=== PATIENT | female | born 1950 | race Caucasian/White ===

== ENCOUNTER 2017-12-31 09:53 | Inpatient (IN) | payer OTHER, MEDICARE ==
[~2017-12-31] VITALS: Ht 157.5 cm; Wt 95.3 kg
[~2017-12-31 09:53] MED LIST: AMLODIPINE BES2.5 M1 PO; CALCITRIOL0.25 MC1 PO; DIPHENHYDRAMINE25 M4 PO; ESCITALOPRAM OXA5 MG PO; LISINOPRIL20 M1 PO; OMEPRAZOLE40 M1 PO; OXYCODONE-ACET1 EACH PO; REGLAN10 M1 PO
--- NOTE | 2017-12-31 10:23 | ED AMS/SEIZURE/WEAK/DIZZY ---
History of Present Illness General Chief Complaint: Dizziness Stated Complaint: DIZZINESS VOMTING Source: patient Exam Limitations: poor historian Vital Signs & Intake/Output Vital Signs & Intake/Output Vital Signs Date Time Temp Pulse Resp B/P B/P Pulse O2 O2 Flow FiO2 Mean Ox Delivery Rate 01/01 0616 97.6 73 18 140/70 92 Room Air 12/31 2217 98.8 72 16 170/78 94 Room Air 12/31 1939 160/80 06 1812 98.3 74 18 178/80 94 Room Air 12/31 1652 97.1 78 20 139/64 95 Room Air 12/31 1446 75 20 152/69 98 Room Air 12/31 1421 98.6 76 20 198/87 97 Room Air 12/31 1420 98.6 76 20 198/87 12/31 1357 76 20 199/97 96 Room Air 12/31 1304 98.6 72 20 210/96 96 Room Air 12/31 1302 72 20 210/96 12/31 1302 72 20 210/96 12/31 1302 72 20 210/96 12/31 1154 70 20 191/80 94 Room Air 12/31 1106 98.2 77 20 195/81 12/31 1103 77 20 195/81 95 Room Air 12/31 1032 98.2 83 17 185/91 93 Room Air 12/31 1030 98.2 83 17 185/91 12/31 1002 98.6 93 18 197/110 98 Room Air ED Intake and Output 01/01 0000 12/31 1200 Intake Total Output Total 250 50 Balance -250 -50 Output, Urine 250 50 Patient 214 lb 230 lb Weight Weight Bed scale Estimated Measurement Method Allergies Coded Allergies: Penicillins (Intermediate, HIVES 01/04/16) Reconcile Medications Furosemide 80 MG TABLET 1 TAB PO DAILY WATER RETENTION (Reported) Hydralazine HCl 25 MG TABLET 1 TAB PO BID HEART (Reported) Labetalol HCl 100 MG TABLET 1 TAB PO BID HEART (Reported) Lisinopril 20 MG TABLET 1 TAB PO QPM BP (Reported) Omeprazole 40 MG CAPSULE.DR 1 CAP PO DAILY GI (Reported) Sevelamer Carbonate (Renvela) 800 MG TABLET 1 TAB PO TID UNKNOWN (Reported) Simvastatin (Simvastatin*) 20 MG TABLET 1 TAB PO QPM CHOLESTEROL (Reported) Triage Note: 67 YO FEMALE TO TRIAGE FOR EVAL OF KENDRICK, DIZZINESS AND VOMTINIG SINCE THIS AM. DENIES CHEST PAIN. EKG COMPELTED ON ARRIVAL, PT TO ER ROOM 9. Triage Nurses Notes Reviewed? yes HPI: Patient presents for evaluation of dizziness headache and tremors that began subacutely last night. The Headache is located bilaterally in the frontal region of the head wrapping around to the occipital region. Patient denies any associated fever or cold symptoms. Past History Travel History Traveled to [place] past 21 day No Medical History Any Pertinent Medical History? 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 No Review of Systems Review of Systems Constitutional: Reports: no symptoms. EENTM: Reports: see HPI. Respiratory: Reports: no symptoms. Cardiovascular: Reports: no symptoms. GI: Reports: no symptoms. Genitourinary: Reports: no symptoms. Musculoskeletal: Reports: no symptoms. Skin: Reports: no symptoms. Neurological/Psychological: Reports: headache, tremors. Hematologic/Endocrine: Reports: no symptoms. Immunologic/Allergic: Reports: no symptoms. All Other Systems: Reviewed and Negative Physical Exam Physical Exam General Appearance: SEE BELOW Comments: Exam somewhat limited secondary to inconsistent cooperation. Gen.: Well-nourished, well-developed, no acute respiratory distress. Response is slow but otherwise appropriate. Head: Normocephalic, atraumatic. Eyes: Normal inspection bilaterally, rotational nystagmus present (patient is unable to comply with extraocular movement testing) pulse round and reactive Ears: Normal inspection bilaterally Nose: Normal inspection Throat/mouth : Moist mucosa Neck: Supple, full range of motion, no goiter Heart: Regular rate and rhythm, no murmurs rubs or gallops Lungs: Clear to auscultation bilaterally with normal air entry Chest: Nontender Back: Normal range of motion Abdomen: Soft, nontender, nondistended, normal bowel sounds Extremities: Normal range of motion grossly, equal radial pulses, no cyanosis clubbing or edema Neurologic: Cranial nerves grossly intact, speech is clear Skin: warm and dry Psychiatric: Calm, inconsistently cooperative, distant stare, no apparent delusions or hallucinations Core Measures ACS in differential dx? No CVA/TIA Diagnosis No Sepsis Present: No Sepsis Focused Exam Completed? No Progress Differential Diagnosis: CVA/stroke, dehydration, encephalitis, electrolyte imbalance, hypoglycemia, hypoxia, intracranial Hem., intracranial mass/tumor, seizure disorder, subarachnoid Hem. Plan of Care: Orders Procedure Date/time Status ECHOCARDIOGRAM 01/01 0741 Active Change service to 01/01 0711 Active TROPONIN LEVEL 01/01 0300 Complete EKG 01/01 0300 Active PT Evaluate & Treat 01/01 UNK Active Nursing Misc 01/01 UNK Active MRI-HEAD W/O SUE 01/01 UNK Active Renal Dialysis Diet 12/31 D Active TROPONIN LEVEL 12/31 2100 Complete EKG 12/31 2100 Active CULTURE,BODY FLUID 12/31 1902 Active BODY FLUID CELL COUNT 12/31 1902 Complete Weight 12/31 1836 Active Vital Signs 12/31 1836 Complete Teach/Educate 12/31 1836 Active Pain Treatment and Response 12/31 1836 Active Nutritional Intake, Monitor 12/31 1836 Active Isolation 12/31 1836 Active Intake & Output 12/31 1836 Complete Patient Care Conference 12/31 1836 Active Activity/Ambulation 12/31 1836 Active Pathway - chart 12/31 1619 Active House Staff 12/31 1619 Active Patient Data 12/31 1619 Active Code Status 12/31 1619 Active Patient Data 12/31 1617 Active Misc Message 12/31 1541 Active ED Holding Orders 12/31 1541 Active Admit to inpatient 12/31 1541 Active Vital Signs 12/31 1541 Active Code Status 12/31 1541 Complete Add-on Test (ER Only) 12/31 1234 Active EKG 12/31 1234 Active URINALYSIS 12/31 1129 Complete Lucas, Insertion/Removal/Asses 12/31 1111 Active CULTURE,URINE 12/31 1111 Active TROPONIN LEVEL 12/31 1030 Complete PROTHROMBIN TIME 12/31 1021 Complete LIPASE 12/31 1021 Complete COMPREHENSIVE METABOLIC PANEL 12/31 1021 Complete CBC WITHOUT DIFFERENTIAL 12/31 1021 Complete EKG 12/31 0954 Active VTE Mechanical Prophylaxis 12/31 UNK Active Vital Signs 12/31 UNK Complete Telemetry/Health Care Aide 12/31 UNK Active Peritoneal Dialysis 12/31 UNK Complete Peritoneal Dialysis 12/31 UNK Active Nursing Misc 12/31 UNK Active NIH Stroke Scale 12/31 UNK Active Intake & Output 12/31 UNK Active Current Medications Sig/Rich Start time Last Medication Dose Stop Time Status Admin Atorvastatin Calcium 10 MG 1700 01/01 1700 AC (Lipitor) Aspirin 81 MG DAILY 01/01 0900 AC (Aspirin) Furosemide 80 MG DAILY 01/01 0900 AC (Lasix) Hydralazine HCl 25 MG BID 01/01 0900 AC (Apresoline) Labetalol HCl 100 MG BID 01/01 0900 AC (Trandate) Lisinopril 20 MG BID 01/01 0900 AC (Prinivil) Calcium Acetate 667 MG WITH MEALS 01/01 0800 AC (PhosLo) Heparin Sodium 5,000 UNIT Q8 12/31 2200 AC 01/01 (Porcine) 0634 Omeprazole 40 MG DAILY AC PRN 12/31 2100 AC (Prilosec) Sevelamer Carbonate 800 MG WM 12/31 2100 AC (Renvela) Laboratory Tests 01/01/18 0325: Troponin I 0.05 12/31/17 2135: Troponin I 0.05 12/31/178: Lymphocytes 31, % Normal PMNs 4, [facility] Test , Fluid WBC 10 H, Fld Total RBCs Counted 7 H 12/31/17 1130: Urine Color YEL, Urine Clarity HAZY H, Urine pH 7.5, Ur Specific [place] 1.020, Urine Protein 100 H, Urine Ketones NEG, Urine Nitrite NEG, Urine Bilirubin NEG, Urine Urobilinogen 0.2, Ur Leukocyte Esterase TRACE H, Ur Microscopic SEDIMENT EXAMINED, Urine RBC 3-5, Urine WBC 15-25 H, Ur Epithelial Cells FEW, Urine Hemoglobin MOD H, Urine Glucose 100 H 12/31/17 1030: Anion Gap 17 H, Estimated GFR 4 L, BUN/Creatinine Ratio 6.8 L, Glucose 122 H , Calcium 9.0, Total Bilirubin 0.7, AST 16, ALT 22, Alkaline Phosphatase 92, Troponin I 0.04, Total Protein 5.5 L, Albumin 3.2 L, Globulin 2.3, Albumin/ Globulin Ratio 1.4, Lipase 61, PT 10.8, INR 0.99, CBC w Diff NO MAN DIFF REQ, RBC 3.95 L, MCV 90.8, MCH 30.0, MCHC 33.0, RDW 13.7, MPV 9.5, Gran % 75.6 H, Lymphocytes % 18.3 L, Monocytes % 4.5, Eosinophils % 1.3, Basophils % 0.3, Absolute Granulocytes 5.6, Absolute Lymphocytes 1.4, Absolute Monocytes 0.3, Absolute Eosinophils 0.1, Absolute Basophils 0 Microbiology 12/31 1901 BODY FLUID: Body Fluid Culture - COLB 12/31 1901 BODY FLUID: Gram Stain - COLB 12/31 1129 URINE ROUT: Urine Culture - RECD Diagnostic Imaging: Discussed w/RAD: CT Scan. Radiology Impression: PATIENT: ALE MCDERMOTT PRESENT AGE: 67 PATIENT ACCOUNT NO: [id number] : 50 LOCATION: [facility] ORDERING PHYSICIAN: Josh Kelly MD SERVICE DATE: 12/31/17 EXAM TYPE: CAT - CT HEAD WO IV CONTRAST CT HEAD WITHOUT IV CONTRAST INDICATION: Dizziness and vomiting. COMPARISON: Head CT 01/04/2016. TECHNIQUE: Multidetector CT acquisitions of the head was obtained without IV contrast. FINDINGS: Chronic encephalomalacia within the occipital lobes bilaterally and the right frontal lobe at sites of previously seen intraparenchymal hemorrhage. There are new small indeterminate age areas of hypoattenuation within the right and left parietal lobes at the high convexity that are nonspecific and for which a MRI of the brain with and without contrast would be helpful in further assessment. Differential considerations include evolving infarcts or PRES. There is no intracranial hemorrhage, hydrocephalus, extra-axial surface collection, midline shift, or other herniation pattern. The basilar cisterns are preserved. No significant soft tissue abnormality. No acute osseous abnormality. Small mastoid effusions bilaterally. IMPRESSION: - There are new small indeterminate age areas of hypoattenuation within the right and left parietal lobes at the high convexity that are nonspecific and for which a MRI of the brain with and without contrast would be helpful in further assessment. Differential considerations include but are not limited to PRES or evolving infarcts There is no associated mass effect. - Chronic encephalomalacia within the occipital lobes bilaterally and the right frontal lobe at sites of previously seen intraparenchymal hemorrhage. No acute hemorrhage. DICTATED BY: Josh Thacker MD DATE/TIME DICTATED:12/31/171138 NURSERY HELPER:KELLI DATE/TIME TRANSCRIBED:1138 CONFIDENTIAL, DO NOT COPY WITHOUT APPROPRIATE AUTHORIZATION. < Electronically signed in Other Vendor System> SIGNED BY: Josh Thacker MD 12/31/17 1141, PATIENT: ALE MCDERMOTT PRESENT AGE: 67 PATIENT ACCOUNT NO: [id number] : 50 LOCATION: [facility] ORDERING PHYSICIAN: Josh Kelly MD SERVICE DATE: 12/31/17 EXAM TYPE: CAT - CT ABD & PELVIS W/O IV CONTRAS CT ABDOMEN AND PELVIS WITHOUT CONTRAST CLINICAL INFORMATION: Bilious vomiting. COMPARISON: Abdominal CT biopsy 01/21/2013. TECHNIQUE: Multidetector volumetric imaging was performed from the superior aspect of the liver through the pubic symphysis. Sagittal and coronal reformatted images were obtained on the technologist's workstation. FINDINGS: Small right greater than left pleural effusions. Limited evaluation of the unenhanced liver, spleen, adrenal glands, and pancreas reveals no definite abnormality. The gallbladder is surgically absent. There is significant renal atrophy bilaterally. There is a 0.8 cm calculus within the midpole of the left kidney. There are a few probable atherosclerotic calcifications within the right renal hilum. There is no hydronephrosis. Scattered colonic diverticulosis. The large and small bowel are normal in caliber without evidence of mechanical obstruction. No focal inflammatory changes adjacent to the large or the small bowel. The appendix is normal. There is small volume free air within the anterior aspect of the upper abdomen, presumably related to peritoneal dialysis. There is extensive aortoiliac atherosclerotic calcification. Moderate volume intra-abdominal/intrapelvic ascites. Dialysis catheter terminates within the pelvis posteriorly. There is a Lucas catheter in place and the bladder is not well visualized secondary to adjacent ascites. The pelvic viscera are normal. No pelvic adenopathy. There are no acute osseous abnormalities. Chronic flattening of the left femoral head. There is grade 1 degenerative anterolisthesis of L4 on L5. No significant soft tissue abnormality. IMPRESSION: - Moderate volume intra- abdominal/intrapelvic ascites. Dialysis catheter terminates within the pelvis posteriorly. - There is small volume free air within the anterior aspect of the upper abdomen, presumably related to peritoneal dialysis which limits assessment for true pathologic free air. - There is significant renal atrophy bilaterally. There is a 0.8 cm calculus within the midpole of the left kidney. No hydronephrosis. - There is extensive aortoiliac atherosclerotic calcification. - Scattered colonic diverticulosis. - Gallbladder not visualized and likely surgically absent. Common bile duct is not enlarged. - Small right greater than left pleural effusions. DICTATED BY: Josh Thacker MD DATE/TIME DICTATED:12/31 NURSERY HELPER:KELLI DATE/TIME TRANSCRIBED:12/31/171199 CONFIDENTIAL, DO NOT COPY WITHOUT APPROPRIATE AUTHORIZATION. <Electronically signed in Other Vendor System> SIGNED BY: Josh Thacker MD 12/31/17 1212 Initial ED EKG: NSR, nonspecific ST T wave chg Comments: 12/31/2017 11:40:22 AM I have updated Ale on test results to this point. She is accompanied by her nephew and his girlfriend. Ale looks much better at this time. Tremors have resolved as well as the patient's rotational nystagmus. She is answering questions much more briskly and offers no complaint. Awaiting CAT scan report. Departure Departure Disposition: STILL A PATIENT Condition: Stable Clinical Impression Primary Impression: Hypertensive encephalopathy Referrals: Amy SHARP,Rachna Pavon Departure Forms: Customer Survey General Discharge Information Observation Note Spoke With: Karen Ricks MD [facility] Patient In: Non-ED OBS Care Area Rationale for Observation: My rational for observation is as follows patient presented with an extremely high blood pressure along with altered mental status consistent with hypertensive encephalopathy. She has required substantial amounts of antihypertensive medications both parenterally and orally. Although the patient has improved with treatment her blood pressure is still high. Given the altered mental status with her high blood pressure I do not feel she is a good candidate for outpatient management. If her blood pressure increases again she would not be capable of outpatient follow-up. I feel she now requires hospitalization for close monitoring of her blood pressure and for modification of her current blood pressure regimen. Cardiology consultation should be considered. If patient's mentation altars again neurology consultation should also be considered. She is currently taking 3 antihypertensive medicines so I feel her medication adjustments and stabilization of her blood pressure control on oral medications will be prolonged and somewhat complicated. Critical Care Note Critical Care Note Critical Care Time: 30-74 min
[2017-12-31 11:00] LABS: ABSOLUTE BASOPHIL COUNT 0 /CUMM (0.0-0.2); ABSOLUTE EOSINOPHIL COUNT 0.1 /CUMM (0.0-0.7); ABSOLUTE GRANULOCYTE CT 5.6 /CUMM (1.4-6.5); ABSOLUTE LYMPH COUNT 1.4 /CUMM (1.2-3.4); ABSOLUTE MONOCYTE COUNT 0.3 /CUMM (0.10-0.60); BASOPHIL % 0.3 % (0.0-2.0); EOSINOPHIL % 1.3 % (0-5); GRANULOCYTE % 75.6 % (42.2-75.2); HEMATOCRIT 35.8 % (37-47); MEAN CORPUSCULAR VOLUME 90.8 FL (81.0-99.0); MEAN PLATELET VOLUME 9.5 FL (7.4-10.4); PLATELET COUNT 213 /CUMM (130-400); RBC DISTRIBUTION WIDTH 13.7 % (11.5-14.5); RED BLOOD CELL CT 3.95 /CUMM (4.20-5.40); WHITE BLOOD CELL COUNT 7.4 /CUMM (4.8-10.8)
[2017-12-31 11:07] LABS: PT 10.8 SEC (9.4-12.5)
--- NOTE | 2017-12-31 11:49 | CT SCAN REPORT ---
CT HEAD WITHOUT IV CONTRAST INDICATION: Dizziness and vomiting. COMPARISON: Head CT 01/04/2016. TECHNIQUE: Multidetector CT acquisitions of the head was obtained without IV contrast. FINDINGS: Chronic encephalomalacia within the occipital lobes bilaterally and the right frontal lobe at sites of previously seen intraparenchymal hemorrhage. There are new small indeterminate age areas of hypoattenuation within the right and left parietal lobes at the high convexity that are nonspecific and for which a MRI of the brain with and without contrast would be helpful in further assessment. Differential considerations include evolving infarcts or PRES. There is no intracranial hemorrhage, hydrocephalus, extra-axial surface collection, midline shift, or other herniation pattern. The basilar cisterns are preserved. No significant soft tissue abnormality. No acute osseous abnormality. Small mastoid effusions bilaterally. IMPRESSION: - There are new small indeterminate age areas of hypoattenuation within the right and left parietal lobes at the high convexity that are nonspecific and for which a MRI of the brain with and without contrast would be helpful in further assessment. Differential considerations include but are not limited to PRES or evolving infarcts There is no associated mass effect. - Chronic encephalomalacia within the occipital lobes bilaterally and the right frontal lobe at sites of previously seen intraparenchymal hemorrhage. No acute hemorrhage.
--- NOTE | 2017-12-31 12:12 | CT SCAN REPORT ---
CT ABDOMEN AND PELVIS WITHOUT CONTRAST CLINICAL INFORMATION: Bilious vomiting. COMPARISON: Abdominal CT biopsy 01/21/2013. TECHNIQUE: Multidetector volumetric imaging was performed from the superior aspect of the liver through the pubic symphysis. Sagittal and coronal reformatted images were obtained on the technologist's workstation. FINDINGS: Small right greater than left pleural effusions. Limited evaluation of the unenhanced liver, spleen, adrenal glands, and pancreas reveals no definite abnormality. The gallbladder is surgically absent. There is significant renal atrophy bilaterally. There is a 0.8 cm calculus within the midpole of the left kidney. There are a few probable atherosclerotic calcifications within the right renal hilum. There is no hydronephrosis. Scattered colonic diverticulosis. The large and small bowel are normal in caliber without evidence of mechanical obstruction. No focal inflammatory changes adjacent to the large or the small bowel. The appendix is normal. There is small volume free air within the anterior aspect of the upper abdomen, presumably related to peritoneal dialysis. There is extensive aortoiliac atherosclerotic calcification. Moderate volume intra-abdominal/intrapelvic ascites. Dialysis catheter terminates within the pelvis posteriorly. There is a Lucas catheter in place and the bladder is not well visualized secondary to adjacent ascites. The pelvic viscera are normal. No pelvic adenopathy. There are no acute osseous abnormalities. Chronic flattening of the left femoral head. There is grade 1 degenerative anterolisthesis of L4 on L5. No significant soft tissue abnormality. IMPRESSION: - Moderate volume intra-abdominal/intrapelvic ascites. Dialysis catheter terminates within the pelvis posteriorly. - There is small volume free air within the anterior aspect of the upper abdomen, presumably related to peritoneal dialysis which limits assessment for true pathologic free air. - There is significant renal atrophy bilaterally. There is a 0.8 cm calculus within the midpole of the left kidney. No hydronephrosis. - There is extensive aortoiliac atherosclerotic calcification. - Scattered colonic diverticulosis. - Gallbladder not visualized and likely surgically absent. Common bile duct is not enlarged. - Small right greater than left pleural effusions.
[2017-12-31] MEDS ORDERED: FUROSEMIDE80 M1 PO (12:47)
[2017-12-31] MEDS ORDERED: RENVELA800 M1 PO (12:48)
[2017-12-31] MEDS ORDERED: SIMVASTATIN20 M2 PO (12:49)
[2017-12-31] MEDS ORDERED: HYDRALAZINE HCL25 M1 PO (12:50)
[2017-12-31] MEDS ORDERED: LABETALOL HCL100 M1 PO (12:50)
--- NOTE | 2017-12-31 17:31 | History & Physical ---
Rl SHARP,[employer] 12/31/17 3450: General Information and HPI MD Statement: I have seen and personally examined ALE MCDERMOTT and documented this H&P. The patient is a 67 year old F who presented with a patient stated chief complaint of [headache]. Source of Information: patient, family Exam Limitations: no limitations History of Present Illness: 67-year-old female with past medical history of hypertension, diastolic heart failure, hyperlipidemia, stroke [2015], migraine headache, CKD on peritoneal dialysis, came to [facility] [place] [facility] with complains of headache, nausea, abdominal pain, dizziness since last night. According to the patient, she was in her usual state of health until last evening, suddenly had severe 10 x 10 headache in her frontal area radiating to the occipital region, associated with one episode of vomiting, nausea, abdominal pain. Patient took her evening meds but threw up immediately. Patient didn't check her blood pressure then. During the same time patient had dizziness with no episodes of blackout, loss of consciousness, fall, chest pain, shortness of breath, weakness, tingling sensation, seizures. Patient endorses seeing floaters during the same time. Patient also says that whenever she gets headache she sees floaters. Patient also complains of tremors both the hand which subsided after coming to the hospital. Patient was being followed Dr. Vaughn and neurologist at [place]. She doesn't have any primary care physician. Patient was seen recently by her neurologist and her amlodipine was stopped and was started on hydralazine 25 mg due to resistant hypertension. Patient didn't have any side effects to the medication in past 3 weeks. Patient used to see Dr. Pardo few years ago. Family history-none Social history-no smoker/alcohol. Lives with her nephew. Doesn't use cane or walker. Allergies/Medications Allergies: Coded Allergies: Penicillins (Intermediate, HIVES 01/04/16) Compliance With Home Meds: FAIR Past History Travel History Traveled to [place] past 21 day No Medical History Neurological: CVA EENT: NONE Cardiovascular: NONE Respiratory: NONE Gastrointestinal: NONE Hepatic: NONE Renal: RENAL FAILURE PERTIONEAL DIALYSIS Musculoskeletal: NONE Psychiatric: NONE Endocrine: NONE Blood Disorders: NONE Cancer(s): NONE HOME THEATER SPECIALIST/Reproductive: NONE History of MRSA: No History of VRE: No History of CDIFF: No Surgical History Surgical History: non-contributory ECHO Results (as available) EF% 65 Past Family/Social History Family History Relations & Conditions if any Relation not specified for: *No pertinent family history Psychosocial History Services at Home: None Primary Language: Luxembourgish Smoking Status: Never Smoked ETOH Use: denies use Living Will? no Functional Ability ADLs Independent: dressing, eating, toileting, bathing. Ambulation: independent IADLs Independent: housework, food prep, telephone, medication admin. Needs Assist: shopping, finances, transportation. Review of Systems Review of Systems Constitutional: Reports: weakness. EENTM: Reports: visual changes. Cardiovascular: Reports: no symptoms. Respiratory: Reports: no symptoms. GI: Reports: abdominal pain. Genitourinary: Reports: no symptoms. Musculoskeletal: Reports: no symptoms. Skin: Reports: no symptoms. Neurological/Psychological: Reports: confusion, tremors (DIZZINESS). Exam & Diagnostic Data Last 24 Hrs of Vital Signs/I&O Vital Signs Date Time Temp Pulse Resp B/P B/P Pulse O2 O2 Flow FiO2 Mean Ox Delivery Rate 12/31 1652 97.1 78 20 139/64 95 Room Air 12/31 1446 75 20 152/69 98 Room Air 12/31 1421 98.6 76 20 198/87 97 Room Air 12/31 1420 98.6 76 20 198/87 12/31 1357 76 20 199/97 96 Room Air 12/31 1304 98.6 72 20 210/96 96 Room Air 12/31 1302 72 20 210/96 12/31 1302 72 20 210/96 12/31 1302 72 20 210/96 12/31 1154 70 20 191/80 94 Room Air 12/31 1106 98.2 77 20 195/81 12/31 1103 77 20 195/81 95 Room Air 12/31 1032 98.2 83 17 185/91 93 Room Air 12/31 1030 98.2 83 17 185/91 12/31 1002 98.6 93 18 197/110 98 Room Air Intake & Output 12/31 1600 12/31 0800 12/31 0000 Intake Total Output Total 50 Balance -50 Output, Urine 50 Patient 230 lb Weight Weight Estimated Measurement Method Physical Exam General Appearance Alert, Oriented X3, Cooperative, No Acute Distress Skin No Rashes HEENT Atraumatic, PERRLA, MUCOUS MEMBRANE-DRY Neck Supple, No JVD, No thryomegaly, +2 Carotid Pulse wo Bruit, No LAD Cardiovascular Normal S1, Normal S2, No Murmurs Lungs Clear to Auscultation Abdomen Soft, PERITONEAL DIALYSIS CATHETER SEEN.. nO AREA OF REDNESS/SWELLING. Neurological Normal Speech, Strength at 5/5 X4 Ext, Normal Tone, Sensation Intact, Cranial Nerves 3-12 NL, Reflexes 2+ Extremities TRACE PEDAL EDEMA Last 24 Hrs of Labs/Carlos: Laboratory Tests 12/31/17 1130: Urine Color YEL, Urine Clarity HAZY H, Urine pH 7.5, Ur Specific [place] 1.020, Urine Protein 100 H, Urine Ketones NEG, Urine Nitrite NEG, Urine Bilirubin NEG, Urine Urobilinogen 0.2, Ur Leukocyte Esterase TRACE H, Ur Microscopic SEDIMENT EXAMINED, Urine RBC 3-5, Urine WBC 15-25 H, Ur Epithelial Cells FEW, Urine Hemoglobin MOD H, Urine Glucose 100 H 12/31/17 1030: Anion Gap 17 H, Estimated GFR 4 L, BUN/Creatinine Ratio 6.8 L, Glucose 122 H , Calcium 9.0, Total Bilirubin 0.7, AST 16, ALT 22, Alkaline Phosphatase 92, Troponin I 0.04, Total Protein 5.5 L, Albumin 3.2 L, Globulin 2.3, Albumin/ Globulin Ratio 1.4, Lipase 61, PT 10.8, INR 0.99, CBC w Diff NO MAN DIFF REQ, RBC 3.95 L, MCV 90.8, MCH 30.0, MCHC 33.0, RDW 13.7, MPV 9.5, Gran % 75.6 H, Lymphocytes % 18.3 L, Monocytes % 4.5, Eosinophils % 1.3, Basophils % 0.3, Absolute Granulocytes 5.6, Absolute Lymphocytes 1.4, Absolute Monocytes 0.3, Absolute Eosinophils 0.1, Absolute Basophils 0 Microbiology 12/31 1130 URINE ROUT: Urine Culture - RECD Diagnostic Data Other Results CT abdomen and pelvis Moderate volume intra-abdominal/intrapelvic ascites. Dialysis catheter terminates within the pelvis posteriorly.Scattered colonic diverticulosis. Head CT There are new small indeterminate age areas of hypoattenuation within the right and left parietal lobes at the high convexity that are nonspecific. Chronic encephalomalacia within the occipital lobes bilaterally and the right frontal lobe at sites of previously seen intraparenchymal hemorrhage. No acute hemorrhage. Assessment/Plan Assessment: 67-year-old female with past medical history of hypertension, stroke, hyperlipidemia, migraine headache, GERD, heart failure with preserved ejection fraction, CKD on peritoneal dialysis [ Rapidly proliferative glomerulonephritis, pauciimmune], came with complaints of dizziness and vomiting. Admission vitals Blood pressure 198/87, respiratory rate 20, pulse rate 76, temperature 98.6, saturation 97 at room air. Admission labs WBC 7.4, hemoglobin 11.8, platelet count 213, sodium 140, potassium 5.1, BUN 69, creatinine 10.1, AST 16, alkaline phosphatase 92 CT abdomen and pelvis Moderate volume intra-abdominal/intrapelvic ascites. Dialysis catheter terminates within the pelvis posteriorly.Scattered colonic diverticulosis. Head CT There are new small indeterminate age areas of hypoattenuation within the right and left parietal lobes at the high convexity that are nonspecific. Chronic encephalomalacia within the occipital lobes bilaterally and the right frontal lobe at sites of previously seen intraparenchymal hemorrhage. No acute hemorrhage. ED treatment Ativan 1 mg, ondansetron 4 mg once, labetalol 10 mg once, labetalol 20 mg once, enalapril IV 1.25 mg once, amlodipine 10 mg once, Bactrim one tablet, morphine 4 mg IV once, hydralazine IV 20 mg once, scopolamine patch once. Assessment and plan 1. Hypertensive encephalopathy 2. End-stage renal disease on peritoneal dialysis 3. Stroke 4.HFpEF * Admitted in telemetry * Frequent neuro checks every 4, strict I's and O's. Vitals every shift. * Already her blood pressure dropped down more than 25% since admission. For now no more antihypertensives. We will continue watching her blood pressure. We will start her home medications tomorrow depending upon her blood pressure. * We will get echocardiogram and get cardiology on board. Patient has diastolic heart failure and is on Lasix 80. We will continue the same. * We will inform Dr. 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 Meanwhile, we will continue peritoneal dialysis 4 times a day [patient does her own dialysis]. Her last dialysis was today morning. * Continue rest of home medication. Her dialysis site appears normal. No abdominal tenderness-unlikely peritonitis. But we will send cell count and culture to rule out any peritonitis. * Code-full code * Diet-renal diet * [id number] As Ranked By This Provider Problem List: 1. Hypertensive encephalopathy Core Measures/Misc (03/31) Acute Coronary Syndrome ACS Diagnosis: No Congestive Heart Failure Congestive Heart Failure Diagnosis No Cerebrovascular Accident CVA/TIA Diagnosis: No VTE (View Protocol) VTE Risk Factors Age>40 No Mechanical VTE Prophylaxis d/t Other No VTE Pharm Prophylaxis d/t Other Sepsis (View protocol) Sepsis Present: No If YES complete Sepsis Event Note If YES complete Sepsis Event Note Castro SHARP,Lexi 12/31/171933: General Information and HPI Allergies/Medications Home Med list Calcium Acetate 667 MG TABLET 1 TAB PO 4 TIMES/DAY supplement (Reported) Cinacalcet HCl (Sensipar) 30 MG TABLET 1 TAB PO DAILY hypocalcemia (Reported) Furosemide 80 MG TABLET 1 TAB PO DAILY WATER RETENTION (Reported) Hydralazine HCl 25 MG TABLET 1 TAB PO BID HEART (Reported) Labetalol HCl 200 MG TABLET 1 TAB PO BID htn (Reported) Lisinopril 20 MG TABLET 1 TAB PO QPM BP (Reported) Omeprazole 40 MG CAPSULE.DR 1 CAP PO DAILY GI (Reported) Sevelamer Carbonate (Renvela) 800 MG TABLET 1 TAB PO TID UNKNOWN (Reported) Simvastatin (Simvastatin*) 20 MG TABLET 1 TAB PO QPM CHOLESTEROL (Reported) Core Measures/Misc (03/31) Sepsis (View protocol) If YES complete Sepsis Event Note If YES complete Sepsis Event Note Resident Review Statement Resident Statement: examined this patient, discussed with internal combustion engine inspector, agreed with internal combustion engine inspector, discussed with family, reviewed EMR data (avail), discussed with nursing , discussed with case mgmt, reviewed images, amended to note Other Findings: Patient is a 67 YO F with PMH significant for HTN, ESRD on peritoneal dialysis due to rapidly progressive glomerular nephritis, stroke 2014, headaches presented to [facility] with progressive worsening of headache for the past few weeks, nausea, abdominal pain and dizziness. Patient had difficulty with controlling blood pressure despite on 3 antihypertensive so far. On 12/06/2017 her amlodipine 2.5 is discontinued and started on high doses 25 twice a day while continuing the medications. Since then she started experiencing dizziness with headache for the past 2 weeks. She did report having a severe headache yesterday which was little different from the headache for the past few weeks, this is accompanied by nausea and abdominal pain. This pain is accompanied by floaters in front of her eyes. No weakness, tingling, numbness, changes in vision. 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 Vital signs in ER are significant for blood pressure of 197/110 mmHg, heart rate 93, afebrile saturating on room air. Physical examination is unremarkable with intact cranial nerves and strength in all 4 extremities, heart S1-S2 normal, peritoneal catheter intact the abdominal cavity without any acute tenderness. No erythema/swelling around the peritoneal catheter region. Labs did show white count of 7.4, left shift, H&H 11/35. Hazy urine with leukocyte esterase positive WBC 2535. Urine cultures pending. BUN/creatinine 69/10.1, glucose 122. Anion gap 17. Imaging CT head is consistent with indeterminate areas of right and left parietal lobes at the high convexity suggestive of evolving stroke versus PRES syndrome. Differentials Hypertensive emergency leading to Hypertensive encephalopathy/ PRES syndrome/ stroke Problem list 1. Hypertensive encephalopathy 2. ESRD on peritoneal dialysis 3. Anxiety/depression 4. Renovascular hypertension Plan Admit to telemetry floor Hypertensive encephalopathy Patient received 40 mg of IV labetalol, IV Hydralazine IV, Enalaprilat with reduction in BP from 197/110mmHg to 152/69mmHg. * goal to reduce BP <25% from presentation * Continue her home regimen from [facility] * She benefits changes in her home regimen, specifically with altering her diuretic regimen/increasing hydralazine. * ECHO to rule out acute pathology * serial ekg and troponins to rule out ACS * cardiology consult to assist with hypertensive regimen * continue statin, start aspirin. ESRD on peritoneal dialysis Patient usually performs 4 to 5 times per day by herself. consulted and clearly communicated ahout the procedure. * obtain culture/cell count with intial tap * continue peritoneal dialysis protocol per Nephro Depression Patient was on citalopram/escitalopram in the past. Stopped taking lately. Appears in good mood. 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 No focal neurological symptoms on exam initially, given Enalaprilat and Labetalol in ED with improvement in BP and rapid improvement in symptoms. She currently complaints only of weakness but dizziness has improved. Neuro exam normal. She offers no other complaints. Labs show elevated creatinine consistent with ESRD, normal electrolytes and CBC. CT head shows new small indeterminate age areas of hypoattenuation within the right and left parietal lobes at the high convexity that are nonspecific and for which a MRI of the brain with and without contrast would be helpful in further assessment. Differential considerations include but are not limited to PRES or evolving infarcts There is no associated mass effect. Lower suspicion for CVA at this time, PRES/hypertensive encephalopathy more likely. Plan: Admit to telemetry, nephrology and cardiology consults, continue home medications, IV Labetalol or Hydralazine PRN for hypertensive urgency or symptomatic, careful not to drop BP 25% below peak, serial cardiac enzymes and EKG, monitor electrolytes, MRI brain, ASA, statin, unable to obtain CTA due to ESRD, continue home medications, DVT PPx.
[2017-12-31 18:12] VITALS: BP 178/80
--- NOTE | 2017-12-31 19:03 | Event Note ---
Event Note Event Note: I spoke to Dr. Thomas over the phone regarding instruction for peritoneal dialysis. Suggestion * 5 exchanges per day * Please drain over 20 minutes---> fill over 10 minutes and follow to dwell until next exchange. 2000 mL every exchange. * Please send the first drain fluid for cell count and culture [the same was ordered]. If the cell count is more than 100 is a high suspicion for peritonitis, please call nephrology stat. * Use alternating 2.5% and 1.5% with a low calcium dialysate. * Strict I's and O's and daily weights. * Start the patient on calcium acetate 6674 times with meals. * Peritoneal dialysis site-clinic with normal saline followed by 1% gentamicin cream with a sterile dressing. * Need to confirm about patient taking Sensipar. * Need to confirm labetalol dose. Of note, Patient was on 200 twice a day and now looks like on 100 twice a day.
[2017-12-31 19:39] VITALS: BP 160/80
[2017-12-31 22:17] VITALS: BP 170/78
[2018-01-01 06:16] VITALS: BP 140/70
--- NOTE | 2018-01-01 07:11 | PN- Housestaff ---
Rl SHARP,Ami 01/01/18 0711: Subjective Follow-up For: Hypertensive encephalopathy Complaints: no complaints Tele-Events Since Last Visit: Normal sinus rhythm heart rate 80s Subjective: Patient seen and examined at bedside. No overnight events. Patient says she slept well. She denies headache, dizziness, vision changes, weakness, tingling sensation, chest pain, shortness of breath. Review of Systems Constitutional: Reports: no symptoms. EENTM: Reports: no symptoms. Cardiovascular: Reports: no symptoms. Respiratory: Reports: no symptoms. Gastrointestinal: Reports: no symptoms. Neurological/Psychological: Reports: no symptoms. Objective Last 24 Hrs of Vital Signs/I&O Vital Signs Date Time Temp Pulse Resp B/P B/P Pulse O2 O2 Flow FiO2 Mean Ox Delivery Rate 01/01 0823 168/70 01/01 0616 97.6 73 18 140/70 92 Room Air 12/31 2217 98.8 72 16 170/78 94 Room Air 12/31 1939 160/80 12/31 1812 98.3 74 18 178/80 94 Room Air 12/31 1652 97.1 78 20 139/64 95 Room Air 12/31 1446 75 20 152/69 98 Room Air 12/31 1421 98.6 76 20 198/87 97 Room Air 12/31 1420 98.6 76 20 198/87 12/31 1357 76 20 199/97 96 Room Air 12/31 1304 98.6 72 20 210/96 96 Room Air 12/31 1302 72 20 210/96 12/31 1302 72 20 210/96 12/31 1302 72 20 210/96 12/31 1154 70 20 191/80 94 Room Air 12/31 1106 98.2 77 20 195/81 12/31 1103 77 20 195/81 95 Room Air 12/31 1032 98.2 83 17 185/91 93 Room Air 12/31 1030 98.2 83 17 185/91 12/31 1002 98.6 93 18 197/110 98 Room Air Intake & Output 01/01 1600 01/01 0800 01/01 0000 Intake Total 4060 Output Total 350 250 Balance 3710 -250 Intake, 4000 Dialysate Intake, Oral 60 Number 0 Bowel Movements Output, 200 Dialysate Output, Urine 150 250 Patient 214 lb Weight Weight Bed scale Measurement Method Physical Exam General Appearance: Alert, Oriented X3, Cooperative, No Acute Distress Skin: No Rashes, No Breakdown Cardiovascular: Regular Rate, Normal S1, Normal S2, No Murmurs Lungs: Clear to Auscultation Abdomen: Soft, DIALYSIS CATH-NO REDNESS/WARMTH. Neurological: Normal Gait, Normal Speech, Strength at 5/5 X4 Ext, Normal Tone, Sensation Intact Extremities: No Clubbing, No Cyanosis Current Medications: Current Medications Sig/Rich Start time Last Medication Dose Route Stop Time Status Admin Amlodipine Besylate 10 MG ONCE ONE 12/31 1300 DC 12/31 PO 12/31 1301 1302 Amlodipine Besylate 0 .STK-MED ONE 12/31 1254 DC PO Aspirin 81 MG DAILY 01/01 0900 AC 01/01 PO 0823 Atorvastatin Calcium 10 MG 1700 01/01 1700 AC PO Calcium Acetate 667 MG WITH MEALS 01/01 0800 AC 01/01 PO 0822 Calcium Acetate 667 MG WITH MEALS 12/31 1930 DC PO Enalaprilat 1.25 MG ONCE ONE 12/31 1300 DC 12/31 IV 12/31 1301 1302 Enalaprilat 0 .STK-MED ONE 12/31 1253 DC IV Furosemide 80 MG BID 01/01 0900 DC PO Furosemide 80 MG DAILY 01/01 0900 AC 01/01 PO 0823 Heparin Sodium 5,000 UNIT Q8 12/31 2200 AC 01/01 (Porcine) SC 0634 Hydralazine HCl 25 MG BID 01/01 0900 AC PO Hydralazine HCl 20 MG ONCE ONE 12/31 1415 DC 12/31 IV 12/31 1416 1420 Hydralazine HCl 0 .STK-MED ONE 12/31 1411 DC .ROUTE Labetalol HCl 100 MG BID 01/01 0900 AC 01/01 PO 0823 Labetalol HCl 20 MG ONCE ONE 12/31 1300 DC 12/31 IV 12/31 1301 1302 Labetalol HCl 10 MG ONCE ONE 12/31 1100 DC 12/31 IV 12/31 1101 1106 Labetalol HCl 10 MG ONCE ONE 12/31 1030 DC 12/31 IV 12/31 1031 1030 Labetalol HCl 0 .STK-MED ONE 12/31 1026 DC IV Lisinopril 20 MG BID 01/01 0900 AC PO Lorazepam 1 MG ONCE ONE 12/31 1030 DC 12/31 IV 12/31 1031 1030 Lorazepam 0 .STK-MED ONE 12/31 1018 DC .ROUTE Morphine Sulfate 4 MG ONCE ONE 12/31 1415 DC 12/31 IV 12/31 1416 1420 Morphine Sulfate 0 .STK-MED ONE 12/31 1411 DC .ROUTE Omeprazole 40 MG DAILY AC PRN 12/31 2100 AC PO Ondansetron HCl 4 MG ONCE ONE 12/31 1030 DC 12/31 IV 12/31 1031 1030 Ondansetron HCl 0 .STK-MED ONE 12/31 1026 DC .ROUTE Scopolamine HBr 1 PAT ONE ONE 12/31 1030 DC 12/31 TOP 12/31 1031 1030 Scopolamine HBr 0 .STK-MED ONE 12/31 1026 DC TOP Sevelamer Carbonate 800 MG WM 12/31 2100 AC 01/01 PO 0823 Trimethoprim/ 0 .STK-MED ONE 12/31 1411 DC Sulfamethoxazole PO Trimethoprim/ 1 TAB ONCE ONE 12/31 1400 DC 12/31 Sulfamethoxazole PO 12/31 1401 1420 Last 24 Hrs of Lab/Carlos Results Last 24 Hrs of Labs/Mics: Laboratory Tests 01/01/18 0325: Phosphorus 5.7 H, Troponin I 0.05 12/31/17 2135: Troponin I 0.05 12/31/178: Lymphocytes 31, % Normal PMNs 4, Misc Hematology Test , Fluid WBC 10 H, Fld Total RBCs Counted 7 H 12/31/17 1130: Urine Color YEL, Urine Clarity HAZY H, Urine pH 7.5, Ur Specific [place] 1.020, Urine Protein 100 H, Urine Ketones NEG, Urine Nitrite NEG, Urine Bilirubin NEG, Urine Urobilinogen 0.2, Ur Leukocyte Esterase TRACE H, Ur Microscopic SEDIMENT EXAMINED, Urine RBC 3-5, Urine WBC 15-25 H, Ur Epithelial Cells FEW, Urine Hemoglobin MOD H, Urine Glucose 100 H 12/31/17 1030: Anion Gap 17 H, Estimated GFR 4 L, BUN/Creatinine Ratio 6.8 L, Glucose 122 H , Calcium 9.0, Total Bilirubin 0.7, AST 16, ALT 22, Alkaline Phosphatase 92, Troponin I 0.04, Total Protein 5.5 L, Albumin 3.2 L, Globulin 2.3, Albumin/ Globulin Ratio 1.4, Lipase 61, PT 10.8, INR 0.99, CBC w Diff NO MAN DIFF REQ, RBC 3.95 L, MCV 90.8, MCH 30.0, MCHC 33.0, RDW 13.7, MPV 9.5, Gran % 75.6 H, Lymphocytes % 18.3 L, Monocytes % 4.5, Eosinophils % 1.3, Basophils % 0.3, Absolute Granulocytes 5.6, Absolute Lymphocytes 1.4, Absolute Monocytes 0.3, Absolute Eosinophils 0.1, Absolute Basophils 0 Microbiology 12/31 1901 BODY FLUID: Body Fluid Culture - COLB 12/31 1901 BODY FLUID: Gram Stain - COLB 12/31 1130 URINE ROUT: Urine Culture - RECD Assessment/Plan Assessment: 67-year-old female with past medical history of hypertension, stroke, hyperlipidemia, migraine headache, GERD, heart failure with preserved ejection fraction, CKD on peritoneal dialysis [ Rapidly proliferative glomerulonephritis, pauciimmune], came with complaints of dizziness and vomiting. Assessment and plan 1. Hypertensive encephalopathy Patient admitted for hypertensive encephalopathy. Her blood pressure is controlled with Lasix, labetalol 100 twice a day [patient home doses 200 twice a day], lisinopril, hydralazine 25. Patient blood pressure dropped yesterday systolic from 190s to 140s today morning. We will maintain to decrease her blood pressures not more than 20% in view of potential stroke. Today morning blood pressure was 192/82. Patient was given Lasix CT and laboratory 100. We will repeat blood pressure and decide upon giving lisinopril and hydralazine. Patient had a CAT scan yesterday which had evidence of possible PRES. we will do MRI head to rule out any infarct/PRES. If it is PRES patient needs good control of her blood pressure. Peritonitis was ruled out yesterday [cell count 10] 2. End-stage renal disease on peritoneal dialysis-patient is on 5 times a day. Toenail dialysis. Nephrology is on board. We will remove Lucas. 3. Stroke 4. HFpEF-stable. We will take cardiology opinion and echocardiogram. We will continue all her home medications. Given her symptom of dizziness patient needs physical therapy opinion. Code-full code Diet-renal dialysis diet Plan today-continue dialysis, nephrology opinion, cardiology opinion, echocardiogram, physical therapy. Problem List: 1. Hypertensive encephalopathy Pain Ratin Pain Location: none Pain Goal: Remain pain free Pain Plan: tylenol Tomorrow's Labs & Rationales: cbc,bep Donna Denson MD 01/01/18 0943: Attending MD Review Statement Attending Statement Attending MD Statement: examined this patient, discuss w/resident/PA/EXPRESSIVE ART THERAPIST, agreed w/resident/PA/EXPRESSIVE ART THERAPIST, reviewed EMR data (avail), discussed with nursing, discussed with case mgmt, reviewed images Attending Assessment/Plan: Pt seen and examined with the entire team. 67-year-old female past medical history of microscopic polyangiitis/ glomerulonephritis on peritoneal dialysis and long-standing hypertension who is here with acute onset dizziness, nausea and headache and was found to have a hypertensive emergency in the emergency room requiring multiple doses of labetalol, Norvasc and Vasotec to get it under control. CT head was nonrevealing with a big differential of subacute infarct versus PRES. We'll get an MRI today to make sure this is not PRES as that would require aggressive blood pressure control. Will put her in for a PT eval to ambulate her, continue her usual antihypertensives, continue her peritoneal dialysis with a nephrology consult and follow closely.
--- NOTE | 2018-01-01 09:44 | Discharge Summary ---
See Addendum Visit Information Visit Dates Admission Date: 12/31/17 Discharge Date: 01/09/18 Hospital Course Course Attending Physician: Janiya SHARP,Donna Espitia Primary Care Physician: Jose SHARP,[facility] Course: 67-year-old female with past medical history of hypertension, diastolic heart failure, hyperlipidemia, stroke [2015], migraine headache, CKD on peritoneal dialysis, came to [facility] with complains of headache, nausea, abdominal pain, dizziness since last night. According to the patient, she was in her usual state of health until last evening, suddenly had severe 10 x 10 headache in her frontal area radiating to the occipital region, associated with one episode of vomiting, nausea, abdominal pain. Patient took her evening meds but threw up immediately. Patient didn't check her blood pressure then. During the same time patient had dizziness with no episodes of blackout, loss of consciousness, fall, chest pain, shortness of breath, weakness, tingling sensation, seizures. Patient endorses seeing floaters during the same time. Patient also says that whenever she gets headache she sees floaters. Patient also complains of tremors both the hand which subsided after coming to the hospital. Patient was being followed Dr. Vaughn and neurologist at [facility]. She doesn't have any primary care physician. Patient was seen recently by her neurologist and her amlodipine was stopped and was started on hydralazine 25 mg due to resistant hypertension. Patient didn't have any side effects to the medication in past 3 weeks. Patient used to see Dr. Pardo few years ago. Hospital course: 1. Hypertensive encephalopathy Patient admitted for hypertensive encephalopathy. Her blood pressure regimen was Lasix, labetalol 200 twice a day, lisinopril, hydralazine 25. We maintained to decrease her blood pressures not more than 20% in view of potential stroke. Patient had few episodes of borderline blood pressure 100/70. Her blood pressure medications was adjusted accordingly. During the hospital course patient had 2 episodes of numbness and tingling of the right hand with word finding difficulty. In view of the high suspicion for TIA start CAT scan of the head was done which was negative. She was seen by neurologist who suggested to continue the current management and decided not to use aspirin/Plavix given that she had previous hemorrhagic stroke. Patient also had ultrasound of her neck and MRA head which was negative. During the course of hospital stay patient had multiple episodes of orthostatic hypotension. Her dialysate regimen was adjusted , BP meds>>Lisinopril, Lasix and Hydralazine, labetalol were held. Patient needs Continous evaluation of her BP and clinical status will need to be done to guide clinical decision on wether to restart her old BP regimen. 2. End-stage renal disease on peritoneal dialysis-patient initially came in with nausea and abdominal pain and hence there was a doubt about peritonitis but this was ruled out given her cell count was 10. Given the orthostatic hypotensive episodes, her PD was changed to 1.5% dextrose, low calcium dialysate to minimize UF. 3. Fall. Patient had a witnessed fall while ambulating with a walker to the bathroom. Did not hit her head, there was no focality in the neuro exam or reported symptoms. Her fall was deemed mechanical . 4. Hx of Stroke-patient had stroke in 2014. Follows Dr. Cline at [facility]. Patient will follow Dr. Guo as outpatient. 5. HFpEF-stable. Cardiology on board patient might need outpatient stress test. We will continue all her home medications. 6. Patient was seen by physical therapy who suggested home PT. Allergies: Coded Allergies: Penicillins (Intermediate, HIVES 01/04/16) Pertinent Lab Results: Abdomen and pelvis CT December 31 Moderate volume intra-abdominal/intrapelvic ascites. Dialysis catheter terminates within the pelvis posteriorly. - There is small volume free air within the anterior aspect of the upper abdomen, presumably related to peritoneal dialysis which limits assessment for true pathologic free air. - There is significant renal atrophy bilaterally. There is a 0.8 cm calculus within the midpole of the left kidney. No hydronephrosis. - There is extensive aortoiliac atherosclerotic calcification. - Scattered colonic diverticulosis. - Gallbladder not visualized and likely surgically absent. Common bile duct is not enlarged. - Small right greater than left pleural effusions. Head CT December 31 - There are new small indeterminate age areas of hypoattenuation within the right and left parietal lobes at the high convexity that are nonspecific and for which a MRI of the brain with and without contrast would be helpful in further assessment. Differential considerations include but are not limited to PRES or evolving infarcts There is no associated mass effect. - Chronic encephalomalacia within the occipital lobes bilaterally and the right frontal lobe at sites of previously seen intraparenchymal hemorrhage. No acute hemorrhage. Head MRI January 01 1. There are no acute bleeds or infarcts. No masses are demonstrated. 2. There are gliotic and encephalomalacia changes in multiple areas consistent with sequelae of chronic infarcts. Chronic hemorrhagic changes are noted as described above. 3. There is extensive fluid signal in the bilateral mastoid air cells. Echocardiogram 1. Normal EF of 55%. 2. Trace mitral regurgitation. 3. Trace tricuspid regurgitation. Carotid Doppler January 02 Mild atherosclerotic plaque of the left carotid bulb produces < 50% stenosis of the proximal ICA. No hemodynamically significant carotid artery stenosis. Disposition Summary Disposition Principal Diagnosis: Hypertensive emergency with encephalopathy Additional Diagnosis: Orthostatic hypotension Asymptomatic bacteruria Discharge Disposition: SNF Discharge Instructions General Discharge Information Code Status: Full Code Patient's Diet: Regular Patient's Activity: As tolerated Follow-Up Instructions/Appts: Please follow up with PCP within 1 week Please follow up with Nephrology, currently the PD is 1.5% dextrose, low calcium dialysate to minimize Ultra filtration. This will need to be adjusted by neprology baserd on fluid status. Please follow up with neurology within 1 week Please follow up with cardiology carolyn 1-2 weeks The Lisinopril, Lasix and Hydralazine were held due to orthostatic hypotension, please follow up with your primary care physician regarding a decision to continue holding these meds or restarting based on BP readings. Medications at Discharge Discharge Medications: Stop taking the following medications: Lisinopril (Lisinopril) 20 MG TABLET ORAL Every night Qty = 90 Furosemide (Furosemide) 80 MG TABLET ORAL DAILY Hydralazine HCl (Hydralazine HCl) 25 MG TABLET ORAL TWICE DAILY Qty = 60 Cinacalcet HCl (Sensipar) 30 MG TABLET ORAL DAILY Labetalol HCl (Labetalol HCl) 200 MG TABLET ORAL TWICE DAILY Continue taking these medications: Omeprazole (Omeprazole) 40 MG CAPSULE.DR 1 Capsule ORAL DAILY Qty = 30 Comments: PER PT MED LIST Sevelamer Carbonate (Renvela) 800 MG TABLET 1 Tablet ORAL THREE TIMES DAILY Simvastatin (Simvastatin*) 20 MG TABLET 1 Tablet ORAL Every night Calcium Acetate (Calcium Acetate) 667 MG TABLET 1 Tablet ORAL 4 TIMES A DAY Qty = 30 Start taking the following new medications: Levothyroxine Sodium (Synthroid) 50 MCG TABLET 0.05 Milligram ORAL DAILY BEFORE BREAKFAST Qty = 30 No Refills Copies To: Jose SHARP,Angel Garcia MD,Angel
--- NOTE | 2018-01-01 10:00 | PN- Student ---
Subjective Subjective: No acute events. Patient states that she is feeling well and had a good night sleep. She denies any symptom. Objective Objective: Vital Signs Date Time Temp Pulse Resp B/P B/P Pulse O2 O2 Flow FiO2 Mean Ox Delivery Rate 01/01 0823 168/70 01/01 0616 97.6 73 18 140/70 92 Room Air 12/31 2217 98.8 72 16 170/78 94 Room Air 12/31 1939 160/80 06 1812 98.3 74 18 178/80 94 Room Air 12/31 1652 97.1 78 20 139/64 95 Room Air 12/31 1446 75 20 152/69 98 Room Air 12/31 1421 98.6 76 20 198/87 97 Room Air 12/31 1420 98.6 76 20 198/87 12/31 1357 76 20 199/97 96 Room Air 12/31 1304 98.6 72 20 210/96 96 Room Air 12/31 1302 72 20 210/96 12/31 1302 72 20 210/96 12/31 1302 72 20 210/96 12/31 1154 70 20 191/80 94 Room Air 12/31 1106 98.2 77 20 195/81 12/31 1103 77 20 195/81 95 Room Air 12/31 1032 98.2 83 17 185/91 93 Room Air 12/31 1030 98.2 83 17 185/91 12/31 1002 98.6 93 18 197/110 98 Room Air ED Intake and Output 01/01 0000 12/31 1200 Intake Total Output Total 250 50 Balance -250 -50 Output, Urine 250 50 Patient 214 lb 230 lb Weight Weight Bed scale Estimated Measurement Method Laboratory Tests 01/01 12/31 12/31 12/31 0325 2135 2038 1130 Chemistry Phosphorus (2.5 - 4.5 mg/dL) 5.7 H Troponin I (< 0.11 ng/ml) 0.05 0.05 Hematology Lymphocytes (%) 31 % Normal PMNs (%) 4 Misc Hematology Test (%) Other Body Source Fluid WBC (0 - 5 /CUMM) 10 H Fld Total RBCs Counted (0 /CUMM) 7 H Urines Urine Color (YEL,AMB,STR) YEL Urine Clarity (CLEAR) HAZY H Urine pH (5.0 - 8.0) 7.5 Ur Specific Reading (1.001 - 1.035) 1.020 Urine Protein (NEG,<30 MG/DL) 100 H Urine Ketones (NEG) NEG Urine Nitrite (NEG) NEG Urine Bilirubin (NEG) NEG Urine Urobilinogen (0.1 - 1.0 EU/dl) 0.2 Ur Leukocyte Esterase (NEG) TRACE H Ur Microscopic SEDIMENT EXAMINED Urine RBC (0 - 5 /HPF) 3-5 Urine WBC (0 - 2 /HPF) 15-25 H Ur Epithelial Cells (NONE,FEW) FEW Urine Hemoglobin (NEG) MOD H Urine Glucose (N MG/DL) 100 H 12/31 1030 Chemistry Sodium (137 - 145 mmol/L) 140 Potassium (3.5 - 5.1 mmol/L) 5.1 Chloride (98 - 107 mmol/L) 104 Carbon Dioxide (22 - 30 mmol/L) 19 L Anion Gap (5 - 16) 17 H BUN (7 - 17 mg/dL) 69 H Creatinine (0.5 - 1.0 mg/dL) 10.1 *H Estimated GFR (>60 ml/min) 4 L BUN/Creatinine Ratio (7 - 25 %) 6.8 L Glucose (65 - 99 mg/dL) 122 H Calcium (8.4 - 10.2 mg/dL) 9.0 Total Bilirubin (0.2 - 1.3 mg/dL) 0.7 AST (14 - 36 U/L) 16 ALT (9 - 52 U/L) 22 Alkaline Phosphatase (<127 U/L) 92 Troponin I (< 0.11 ng/ml) 0.04 Total Protein (6.3 - 8.2 g/dL) 5.5 L Albumin (3.5 - 5.0 g/dL) 3.2 L Globulin (1.9 - 4.2 gm/dL) 2.3 Albumin/Globulin Ratio (1.1 - 2.2 %) 1.4 Lipase (23 - 300 U/L) 61 Coagulation PT (9.4 - 12.5 SEC) 10.8 INR (0.90 - 1.19) 0.99 Hematology CBC w Diff NO MAN DIFF REQ WBC (4.8 - 10.8 /CUMM) 7.4 RBC (4.20 - 5.40 /CUMM) 3.95 L Hgb (12.0 - 16.0 G/DL) 11.8 L Hct (37 - 47 %) 35.8 L MCV (81.0 - 99.0 FL) 90.8 MCH (27.0 - 31.0 PG) 30.0 MCHC (33.0 - 37.0 G/DL) 33.0 RDW (11.5 - 14.5 %) 13.7 Plt Count (130 - 400 /CUMM) 213 MPV (7.4 - 10.4 FL) 9.5 Gran % (42.2 - 75.2 %) 75.6 H Lymphocytes % (20.5 - 51.1 %) 18.3 L Monocytes % (1.7 - 9.3 %) 4.5 Eosinophils % (0 - 5 %) 1.3 Basophils % (0.0 - 2.0 %) 0.3 Absolute Granulocytes (1.4 - 6.5 /CUMM) 5.6 Absolute Lymphocytes (1.2 - 3.4 /CUMM) 1.4 Absolute Monocytes (0.10 - 0.60 /CUMM) 0.3 Absolute Eosinophils (0.0 - 0.7 /CUMM) 0.1 Absolute Basophils (0.0 - 0.2 /CUMM) 0 PE: Patient is an amiable lady, alert, oriented x3 and in no acute distress. Skin looks dry, but normal for ethnicity. Mucous membranes were also dry. Normal S1 & S2 were heard with no additional murmurs or gallops. On lung auscultation vesicular sounds were heard. Abdomen was soft and nontender, with no rebound or guarding and normal bowel sounds were heard. Peritoneal catheter was seen and no tumor, dolor, calor or rubor was noted. Neck was supple, no JVD was seen and no thyromegaly was noted when asked to swallow. Lower extremities had trace BL edema up to her knees. On neurological exam, CN III-XII were normal, and so was the strenght in her 4 extremities (5/5) although a slight intention tremor was noted bilaterally on both hands. Today I checked her BP before the medications and it was 192/82 at 7:55am. Strips were checked and NSR was seen all through the night. Results Results: Laboratory Tests 01/01/18 0325: Phosphorus 5.7 H, Troponin I 0.05 12/31/172134: Troponin I 0.05 12/31/172037: Lymphocytes 31, % Normal PMNs 4, Misc Hematology Test , Fluid WBC 10 H, Fld Total RBCs Counted 7 H 12/31/17 1130: Urine Color YEL, Urine Clarity HAZY H, Urine pH 7.5, Ur Specific Reading 1.020, Urine Protein 100 H, Urine Ketones NEG, Urine Nitrite NEG, Urine Bilirubin NEG, Urine Urobilinogen 0.2, Ur Leukocyte Esterase TRACE H, Ur Microscopic SEDIMENT EXAMINED, Urine RBC 3-5, Urine WBC 15-25 H, Ur Epithelial Cells FEW, Urine Hemoglobin MOD H, Urine Glucose 100 H 12/31/17 1030: Anion Gap 17 H, Estimated GFR 4 L, BUN/Creatinine Ratio 6.8 L, Glucose 122 H , Calcium 9.0, Total Bilirubin 0.7, AST 16, ALT 22, Alkaline Phosphatase 92, Troponin I 0.04, Total Protein 5.5 L, Albumin 3.2 L, Globulin 2.3, Albumin/ Globulin Ratio 1.4, Lipase 61, PT 10.8, INR 0.99, CBC w Diff NO MAN DIFF REQ, RBC 3.95 L, MCV 90.8, MCH 30.0, MCHC 33.0, RDW 13.7, MPV 9.5, Gran % 75.6 H, Lymphocytes % 18.3 L, Monocytes % 4.5, Eosinophils % 1.3, Basophils % 0.3, Absolute Granulocytes 5.6, Absolute Lymphocytes 1.4, Absolute Monocytes 0.3, Absolute Eosinophils 0.1, Absolute Basophils 0 Microbiology 12/31 1901 BODY FLUID: Body Fluid Culture - COLB 12/31 1901 BODY FLUID: Gram Stain - COLB 12/31 113 URINE ROUT: Urine Culture - RES GRAM NEGATIVE RODS Imaging: Abdomen/Pelvis CT: IMPRESSION: - Moderate volume intra-abdominal/intrapelvic ascites. Dialysis catheter terminates within the pelvis posteriorly. - There is small volume free air within the anterior aspect of the upper abdomen, presumably related to peritoneal dialysis which limits assessment for true pathologic free air. - There is significant renal atrophy bilaterally. There is a 0.8 cm calculus within the midpole of the left kidney. No hydronephrosis. - There is extensive aortoiliac atherosclerotic calcification. - Scattered colonic diverticulosis. - Gallbladder not visualized and likely surgically absent. Common bile duct is not enlarged. - Small right greater than left pleural effusions. Head CT: IMPRESSION: - There are new small indeterminate age areas of hypoattenuation within the right and left parietal lobes at the high convexity that are nonspecific and for which a MRI of the brain with and without contrast would be helpful in further assessment. Differential considerations include but are not limited to PRES or evolving infarcts. There is no associated mass effect. - Chronic encephalomalacia within the occipital lobes bilaterally and the right frontal lobe at sites of previously seen intraparenchymal hemorrhage. No acute hemorrhage. Assessment/Plan Assessment: Ms. 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 On arrival, her BP was 197/110 so Enalaprilat and Labetalol were administered with improvement in BP and rapid improvement of symptoms. CT was performed and showed new areas of hypoattenuation bilaterally in her parietal lobes which could represent evolving infarcts or PRES, so an MRI was ordered to clear the etiology of these areas. Currently awaiting results. Problem list and plan: 1. Hypertensive encephalopathy: Patient has symptoms suggesting hypertensive encephalopathy (headaches, nausea, vomiting, AMS, BP up to 210/110mmHg) that resolved as soon as her BP was lowered. Other differentials were excluded as imaging didn't show any bledding or new infarcts, nor did her history suggest any other etiology. Patient has HTN resistant to medication, so she went from taking Labetalol 100mg BID to 200mg BID. She is also using lasix 80mg daily and hydralazine 25mg BID (which was switched recently from Amlodipine), but her BP is still increasing. Her nephew should be contacted to ask about patient's compliance with medications and dialysis. Her BP decreased more than 25% in the first 24 hrs so medications should be stopped for now as we don't want an increased precipitation of it. 2. ESRD on peritoneal dialysis: Patient used to dialyse herself every [address] hrs, but Dr. Thomas was contacted and suggested her doing it every 5 hrs. He also suggested the first drain fluid to be collected for cell count and culture to rule out peritonitis. 3. HFpEF: Her condition seems stable, but patient hasn't seen a straightening machine feeder in over 2 yrs so a cardiology consult should be placed and an echocardiogram should be performed to assess her current status. 4. Other chronic conditions: Continue home medications.
--- NOTE | 2018-01-01 10:26 | Patient Discharge Instructions ---
Discharge Instructions General Discharge Information You were seen/treated for: Hypertensive encephalopathy Watch for these problems: In case of headache, vision changes, nausea, vomiting, abdominal pain, chest pain, fall, loss of consciousness please go to nearest emergency room Special Instructions: Please follow-up with your primary care provider/catalogue compiler/drugless physician/ endocrinology within 1-2 weeks of discharge. Please repeat TSH,T4, and do US neck in 4-6 weeks. All your blood pressure medication has been held. Please follow-up with your primary care physician within 1 week and discuss about the need for blood pressure medication in future. Please f/u with dialysis unit this wek please discuss with the catalogue compiler regarding restarting sensipar Please space out your blood pressure meds. Diet Continue normal diet: No Recommended Diet: Renal Dialysis Activity Full Activity/No Limits: No Activity Self Limited: Yes Acute Coronary Syndrome Inclusion Criteria At DC or during hospital stay patient has or had the following: ACS DIAGNOSIS No Discharge Core Measures Meds if any: Prescribed or Continued at Discharge Meds if any: NOT Prescribed or Continued at Discharge Congestive Heart Failure Inclusion Criteria At DC or during hospital stay patient has or had the following: CHF DIAGNOSIS No Discharge Core Measures Meds if any: Prescribed or Continued at Discharge Meds if any: NOT Prescribed or Continued at Discharge Cerebrovascular accident Inclusion Criteria At DC or during hospital stay patient has or had the following: CVA/TIA Diagnosis No Discharge Core Measures Meds if any: Prescribed or Continued at Discharge Meds if any: NOT Prescribed or Continued at Discharge Venous thromboembolism Inclusion Criteria VTE Diagnosis No VTE Type NONE VTE Confirmed by (Test) NONE Discharge Core Measures - Per Current guidelines, there needs to be overlap - treatment for the first 5 days of Warfarin therapy. - If discharged on Warfarin prior to 5 days of - overlap therapy, the patient will need to be - assessed for post discharge needs including - *Post discharge parental anticoagulation - *Warfarin and/or parental anticoagulation education - *Follow up date to check INR post discharge At least 5 days overlap therapy as Inpatient No Meds if any: Prescribed or Continued at Discharge Note: Overlap Therapy is Warfarin and Anticoagulant Meds if any: NOT Prescribed or Continued at Discharge
[2018-01-01] MEDS ORDERED: CALCIUM ACETAT667 M2 PO (10:33)
[2018-01-01] MEDS ORDERED: SENSIPAR30 M1 PO (10:34)
[2018-01-01] MEDS ORDERED: LABETALOL HCL200 M1 PO (10:37)
--- NOTE | 2018-01-01 11:17 | Cons- Cardiology ---
General Information and HPI Consulting Request Date of Consult: 01/01/18 Requested By: Donna Denson MD Reason for Consult: Hypertensive encephalopathy. Source of Information: patient, old records Exam Limitations: poor historian History of Present Illness: Ms. 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 with complaints of severe headache, dizziness, "floaters", abdominal discomfort, nausea, an episode of vomiting after taking her medications, and transient tremors which resolves while she was in the ED who we are asked to evaluate and help manage in regard to resistent hypertension and abnormal electrocardiogram. She had been taking amlodipine, but felt as though she was having "seizures" while on this agent and asked her glove cuffer to put her on something else. She was started on hydralazine 25 mg twice daily 12/06/2017. In the ED her BP was 197/110 mmHg and she was treated with the following: by mouth amlodipine 10 mg, IV enalapril, IV hydralazine, and IV labetalol. Her present antihypertensive regimen includes: Labetalol 200 mg 3 times daily, lisinopril 20 mg twice daily, hydralazine 25 mg twice daily, and furosemide 80 mg daily. Her last pharmacologic stress test was performed on 03/03/2014 and revealed evidence of inferior wall ischemia. Her last echocardiogram was performed on 03/03/2014 and revealed a normal size left ventricle with normal wall thickness and contractility with an estimated EF of greater than 65%, normal-appearing mitral, aortic, tricuspid, and pulmonic valves, normal size atria, normal size and functioning right ventricle, no pericardial effusion, and a normal size aortic root. The Doppler portion of the study revealed trace mitral, trace tricuspid, trace pulmonic regurgitation, and estimated PA systolic pressure of 29 mmHg, and a normal left ventricular inflow pattern for age. Allergies/Medications Allergies: Coded Allergies: Penicillins (Intermediate, HIVES 01/04/16) Home Med List: Calcium Acetate 667 MG TABLET 1 TAB PO 4 TIMES/DAY supplement (Reported) Cinacalcet HCl (Sensipar) 30 MG TABLET 1 TAB PO DAILY hypocalcemia (Reported) Furosemide 80 MG TABLET 1 TAB PO DAILY WATER RETENTION (Reported) Hydralazine HCl 25 MG TABLET 1 TAB PO BID HEART (Reported) Labetalol HCl 200 MG TABLET 1 TAB PO BID htn (Reported) Lisinopril 20 MG TABLET 1 TAB PO QPM BP (Reported) Omeprazole 40 MG CAPSULE.DR 1 CAP PO DAILY GI (Reported) Sevelamer Carbonate (Renvela) 800 MG TABLET 1 TAB PO TID UNKNOWN (Reported) Simvastatin (Simvastatin*) 20 MG TABLET 1 TAB PO QPM CHOLESTEROL (Reported) Review of Systems Review of Systems: A 14 point system review was obtained was noncontributory, other than as above. 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 no Functional Ability ADLs Independent: dressing, eating, toileting, bathing. Ambulation: independent IADLs Independent: housework, food prep, telephone, medication admin. Needs Assist: shopping, finances, transportation. ECHO Results (as available) EF% 65 Exam & Diagnostic Data Vital Signs and I&O Vital Signs Date Time Temp Pulse Resp B/P B/P Pulse O2 O2 Flow FiO2 Mean Ox Delivery Rate 01/01 0823 168/70 01/01 0616 97.6 73 18 140/70 92 Room Air 12/31 2217 98.8 72 16 170/78 94 Room Air 12/31 1939 160/80 06 1812 98.3 74 18 178/80 94 Room Air 12/31 1652 97.1 78 20 139/64 95 Room Air 12/31 1446 75 20 152/69 98 Room Air 12/31 1421 98.6 76 20 198/87 97 Room Air 12/31 1420 98.6 76 20 198/87 12/31 1357 76 20 199/97 96 Room Air 12/31 1304 98.6 72 20 210 96 Room Air 12/31 1302 72 20 12/31 1302 72 20 21012/31 1302 72 20 12/31 1154 70 20 191/80 94 Room Air Intake & Output 01/01 1600 01/01 0800 01/01 0000 12/31 1600 12/31 0800 12/31 0000 Intake Total 4060 Output Total 350 250 50 Balance 3710 -250 -50 Intake, 4000 Dialysate Intake, Oral 60 Number 0 Bowel Movements Output, 200 Dialysate Output, Urine 150 250 50 Patient 214 lb 230 lb Weight Weight Bed scale Estimated Measurement Method Physical Exam: Well-developed, obese elderly female in no acute distress. HEENT: Normocephalic, atraumatic, EOMI, ABD, no bruits. Lungs: Clear to auscultation bilaterally. Heart: S1, S2 grade 1-2/6 systolic murmur. No gallop or rub. PMI not well felt. Abdomen: Soft, nontender, positive bowel sounds. Extremities: No edema. Labs/Carlos Results: Laboratory Tests 01/01 12/31 12/31 12/31 0325 2135 8 1130 Chemistry Phosphorus (2.5 - 4.5 mg/dL) 5.7 H Troponin I (< 0.11 ng/ml) 0.05 0.05 Hematology Lymphocytes (%) 31 % Normal PMNs (%) 4 Misc Hematology Test (%) Other Body Source Fluid WBC (0 - 5 /CUMM) 10 H Fld Total RBCs Counted (0 /CUMM) 7 H Urines Urine Color (YEL,AMB,STR) YEL Urine Clarity (CLEAR) HAZY H Urine pH (5.0 - 8.0) 7.5 Ur Specific [place] (1.001 - 1.035) 1.020 Urine Protein (NEG,<30 MG/DL) 100 H Urine Ketones (NEG) NEG Urine Nitrite (NEG) NEG Urine Bilirubin (NEG) NEG Urine Urobilinogen (0.1 - 1.0 EU/dl) 0.2 Ur Leukocyte Esterase (NEG) TRACE H Ur Microscopic SEDIMENT EXAMINED Urine RBC (0 - 5 /HPF) 3-5 Urine WBC (0 - 2 /HPF) 15-25 H Ur Epithelial Cells (NONE,FEW) FEW Urine Hemoglobin (NEG) MOD H Urine Glucose (N MG/DL) 100 H 06/19 1030 Chemistry Sodium (137 - 145 mmol/L) 140 Potassium (3.5 - 5.1 mmol/L) 5.1 Chloride (98 - 107 mmol/L) 104 Carbon Dioxide (22 - 30 mmol/L) 19 L Anion Gap (5 - 16) 17 H BUN (7 - 17 mg/dL) 69 H Creatinine (0.5 - 1.0 mg/dL) 10.1 *H Estimated GFR (>60 ml/min) 4 L BUN/Creatinine Ratio (7 - 25 %) 6.8 L Glucose (65 - 99 mg/dL) 122 H Calcium (8.4 - 10.2 mg/dL) 9.0 Total Bilirubin (0.2 - 1.3 mg/dL) 0.7 AST (14 - 36 U/L) 16 ALT (9 - 52 U/L) 22 Alkaline Phosphatase (<127 U/L) 92 Troponin I (< 0.11 ng/ml) 0.04 Total Protein (6.3 - 8.2 g/dL) 5.5 L Albumin (3.5 - 5.0 g/dL) 3.2 L Globulin (1.9 - 4.2 gm/dL) 2.3 Albumin/Globulin Ratio (1.1 - 2.2 %) 1.4 Lipase (23 - 300 U/L) 61 Coagulation PT (9.4 - 12.5 SEC) 10.8 INR (0.90 - 1.19) 0.99 Hematology CBC w Diff NO MAN DIFF REQ WBC (4.8 - 10.8 /CUMM) 7.4 RBC (4.20 - 5.40 /CUMM) 3.95 L Hgb (12.0 - 16.0 G/DL) 11.8 L Hct (37 - 47 %) 35.8 L MCV (81.0 - 99.0 FL) 90.8 MCH (27.0 - 31.0 PG) 30.0 MCHC (33.0 - 37.0 G/DL) 33.0 RDW (11.5 - 14.5 %) 13.7 Plt Count (130 - 400 /CUMM) 213 MPV (7.4 - 10.4 FL) 9.5 Gran % (42.2 - 75.2 %) 75.6 H Lymphocytes % (20.5 - 51.1 %) 18.3 L Monocytes % (1.7 - 9.3 %) 4.5 Eosinophils % (0 - 5 %) 1.3 Basophils % (0.0 - 2.0 %) 0.3 Absolute Granulocytes (1.4 - 6.5 /CUMM) 5.6 Absolute Lymphocytes (1.2 - 3.4 /CUMM) 1.4 Absolute Monocytes (0.10 - 0.60 /CUMM) 0.3 Absolute Eosinophils (0.0 - 0.7 /CUMM) 0.1 Absolute Basophils (0.0 - 0.2 /CUMM) 0 Diagnostic Data EKG Results 01/01/2018: Sinus rhythm, leftward axis, abnormal precordial R-wave progression leads V1, V2 , cannot exclude old anteroseptal wall myocardial infarction, and diffuse T-wave abnormalities, cannot exclude ischemia. Minor changes compared to previous tracing from 12/31/2017. T-wave abnormalities are new when compared to her previous ECG from 01/04/2016. Other Results Head MRI 01/01/2018: 1. There are no acute bleeds or infarcts. No masses are demonstrated. 2. There are gliotic and encephalomalacia changes in multiple areas consistent with sequelae of chronic infarcts. Chronic hemorrhagic changes are noted as described above. 3. There is extensive fluid signal in the bilateral mastoid air cells. Head CT 12/31/2017: 1. There are new small indeterminate age areas of hypoattenuation within the right and left parietal lobes at the high convexity that are nonspecific and for which a MRI of the brain with and without contrast would be helpful in further assessment. Differential considerations include but are not limited to PRES or evolving infarcts There is no associated mass effect. 2. Chronic encephalomalacia within the occipital lobes bilaterally and the right frontal lobe at sites of previously seen intraparenchymal hemorrhage. No acute hemorrhage. CT abdomen/pelvis 12/31/2017: 1. Moderate volume intra-abdominal/intrapelvic ascites. Dialysis catheter terminates within the pelvis posteriorly. 2. There is small volume free air within the anterior aspect of the upper abdomen, presumably related to peritoneal dialysis which limits assessment for true pathologic free air. 3. There is significant renal atrophy bilaterally. There is a 0.8 cm calculus within the midpole of the left kidney. No hydronephrosis. 4. There is extensive aortoiliac atherosclerotic calcification. 5. Scattered colonic diverticulosis. 6. Gallbladder not visualized and likely surgically absent. Common bile duct is not enlarged. 7. Small right greater than left pleural effusions. Assessment/Plan Assessment/Plan [id number] w/ hx of obesity, HTN, HLD, CKD, 2/2 microscopic polyangiitis Rx'd w/ pulse steroids & plasmapheresis w/o recovery of renal function for which she is on chronic PD (2012), & stroke (2014) who presented to the ED on 12/31/2017 a.m. w/ c/o severe KENDRICK, dizziness, "floaters", abd discomfort, nausea, an episode of vomiting after taking her meds, & transient tremors which resolved while she was in the ED who we are asked to evaluate and help manage in regard to resistent HTN. Present antihypertensive regimen includes: labetalol 200 mg 3 times daily, lisinopril 20 mg twice daily, hydralazine 25 mg twice daily, and furosemide 80 mg daily. Her systolic blood pressure is presently still on the high side. Recommendation: * Continue on telemetry. * Continue present antihypertensive regimen, but increase hydralazine to 25 mg 3 times daily, if the increase in the labetalol does not sufficiently control her hypertension. * Echocardiogram to assess left ventricular systolic/diastolic function, degree of left ventricular hypertrophy, wall motion, etc. * Check magnesium, glycosylated hemoglobin A1c, free T4, TSH, fasting lipid panel, etc. * Follow-up potassium, phosphorus, etc. * Given the significant change in her electrocardiogram, would consider a repeat imaging stress test that can be done on an outpatient basis. * Follow-up with nephrology recommendations regarding possible urinary tract infection and regimen for peritoneal dialysis. * DVT prophylaxis. Further recommendations will follow, Thank you. Consult Acknowledgment - Thank you for your consult request.
--- NOTE | 2018-01-01 12:34 | MRI REPORT ---
EXAMINATION: MR BRAIN WITHOUT CONTRAST CLINICAL INFORMATION: Dizziness and tremors. Encephalopathy. Assess for evolving infarct. COMPARISON: CT scan of the head 12/31/2017. TECHNIQUE: MRI of the brain without contrast was obtained using routine sequences. FINDINGS: No diffusion abnormalities are identified to suggest an acute or subacute infarct. No mass effect or midline shift is seen. The ventricles and sulci are commensurately prominent consistent with mild diffuse volume loss. There are areas of gliosis and encephalomalacia in the right greater than left occipital lobes, in the anterior right centrum semiovale and in the posterior left parietal region. These areas are consistent with sequelae of chronic infarcts. Most of the areas demonstrate mild chronic hemorrhagic changes. In addition, there are scattered areas of T2 and FLAIR hyperintensity consistent with chronic microvascular ischemic disease. There is a alexa cisterna magna The brainstem and cerebellum are normal. There are a few scattered subcortical foci of low gradient signal in the right greater than left cerebral hemispheres, which are nonspecific and may be consistent with amyloid angiopathy, sequelae of chronic microcalcifications or microhemorrhage. There is no acute pathologic magnetic susceptibility artifact. The craniovertebral junction, marrow signal, and midline structures are normal. The major intracranial flow-voids at the level of the [place] are preserved. The dural venous sinus flow-voids are maintained. There is significant fluid in the bilateral mastoid air cells, more extensive on the left. There is mucoperiosteal thickening in the bilateral ethmoid sinuses. IMPRESSION: 1. There are no acute bleeds or infarcts. No masses are demonstrated. 2. There are gliotic and encephalomalacia changes in multiple areas consistent with sequelae of chronic infarcts. Chronic hemorrhagic changes are noted as described above. 3. There is extensive fluid signal in the bilateral mastoid air cells.
--- NOTE | 2018-01-01 12:46 | Cons- Nephrology ---
See Addendum General Information and HPI Consulting Request Date of Consult: 01/01/18 Requested By: Janiya SHARP,Donna Espitia Reason for Consult: ESRD Source of Information: patient, old records Exam Limitations: no limitations History of Present Illness: The patient is a 67-year-old woman with a past medical history most significant for end-stage renal disease secondary to microscopic polyangiitis currently on peritoneal dialysis, hemorrhagic CVA in 2015, hypertension, history of migraine headache who presented to the ER with headache, nausea, dizziness. The patient was in her usual state of health prior to 2 nights ago when she developed a severe headache and nausea/vomiting. She has been throwing up her medications including her blood pressure medicines. On Presentation to [facility], blood pressure 197/110. CT imaging with new small indeterminate age areas of hypoattenuation within the left probable lobes that were noted to be nonspecific. She underwent MRI today - no acute infarct and/or mention of PRES. Yesterday she was given 10mg PO amlodipine in addition to IV enalaprilat, IV hydralazine, and IV labetalol. BP down to as low as 139/64 yesterday. She was restarted on her home meds today although should note that her labetalol was increased to 200mg BID. BP had been 140/70 this AM although is up to 194/80 now. Should note that the patient denies any abd pain or cloudy fluid. Uses greens and 1 red/day dialysis exchange. Should note that her HD regimen had been increased to add an exchange each day because of hyperkalemia (K 5.1 here) and hyperphosphatemia (Phos 5.7 here). She had been on the cycler but developed Pasteurella peritonitis (has a cat) so now just does manual exchanges. Her BP meds were increased at her last visit as well. Does have a little edema but resistant to taking off too much fluid as it makes her cramp. Allergies/Medications Allergies: Coded Allergies: Penicillins (Intermediate, HIVES 01/04/16) Home Med List: Calcium Acetate 667 MG TABLET 1 TAB PO 4 TIMES/DAY supplement (Reported) Cinacalcet HCl (Sensipar) 30 MG TABLET 1 TAB PO DAILY hypocalcemia (Reported) Furosemide 80 MG TABLET 1 TAB PO DAILY WATER RETENTION (Reported) Hydralazine HCl 25 MG TABLET 1 TAB PO BID HEART (Reported) Labetalol HCl 200 MG TABLET 1 TAB PO BID htn (Reported) Lisinopril 20 MG TABLET 1 TAB PO QPM BP (Reported) Omeprazole 40 MG CAPSULE. 1 CAP PO DAILY GI (Reported) Sevelamer Carbonate (Renvela) 800 MG TABLET 1 TAB PO TID UNKNOWN (Reported) Simvastatin (Simvastatin*) 20 MG TABLET 1 TAB PO QPM CHOLESTEROL (Reported) Current Medications: Current Medications Sig/Rich Start time Last Medication Dose Route Stop Time Status Admin Amlodipine Besylate 10 MG ONCE ONE 12/31 1300 DC 12/31 PO 12/31 1301 1302 Amlodipine Besylate 0 .STK-MED ONE 12/31 1254 DC PO Aspirin 81 MG DAILY 01/01 0900 AC 01/01 PO 0823 Atorvastatin Calcium 10 MG 1700 01/01 1700 AC PO Calcium Acetate 667 MG WM 01/01 1200 AC 01/01 PO 1230 Calcium Acetate 667 MG WITH MEALS 01/01 0800 DC 01/01 PO 0822 Calcium Acetate 667 MG WITH MEALS 12/31 1930 DC PO Enalaprilat 1.25 MG ONCE ONE 12/31 1300 DC 12/31 IV 12/31 1301 1302 Enalaprilat 0 .STK-MED ONE 12/31 1253 DC IV Furosemide 80 MG BID 01/01 0900 DC PO Furosemide 80 MG DAILY 01/01 0900 AC 01/01 PO 0823 Heparin Sodium 5,000 UNIT Q8 12/31 2200 AC 01/01 (Porcine) SC 0634 Hydralazine HCl 25 MG BID 01/01 0900 AC 01/01 PO 1230 Hydralazine HCl 20 MG ONCE ONE 12/31 1415 DC 12/31 IV 12/31 1416 1420 Hydralazine HCl 0 .STK-MED ONE 12/31 1411 DC .ROUTE Labetalol HCl 100 MG BID 01/01 0900 AC 01/01 PO 0823 Labetalol HCl 20 MG ONCE ONE 12/31 1300 DC 12/31 IV 12/31 1301 1302 Lisinopril 20 MG BID 01/01 0900 AC 01/01 PO 1230 Morphine Sulfate 4 MG ONCE ONE 12/31 1415 DC 12/31 IV 12/31 1416 1420 Morphine Sulfate 0 .STK-MED ONE 12/31 1411 DC .ROUTE Omeprazole 40 MG DAILY AC PRN 12/31 2100 AC PO Sevelamer Carbonate 800 MG WM 12/31 2100 AC 01/01 PO 1230 Trimethoprim/ 0 .STK-MED ONE 12/31 1411 DC Sulfamethoxazole PO Trimethoprim/ 1 TAB ONCE ONE 12/31 1400 DC 12/31 Sulfamethoxazole PO 12/31 1401 1420 Review of Systems Review of Systems: Complete 14 point ROS neg except as per HPI Past History Travel History Traveled to [place] past [place] No Medical History Neurological: CVA EENT: NONE Cardiovascular: NONE Respiratory: NONE Gastrointestinal: NONE Hepatic: NONE Renal: RENAL FAILURE PERTIONEAL DIALYSIS Musculoskeletal: NONE Psychiatric: NONE Endocrine: NONE Blood Disorders: NONE Cancer(s): NONE RESIDENTIAL COUNSELOR/Reproductive: NONE Surgical History Surgical History: non-contributory Family History Relations & Conditions If Any: Relation not specified for: *No pertinent family history Psychosocial History Services at Home: None Primary Language: [place] Smoking Status: Never Smoked ETOH Use: denies use Living Will? no Functional Ability ADLs Independent: dressing, eating, toileting, bathing. Ambulation: independent IADLs Independent: housework, food prep, telephone, medication admin. Needs Assist: shopping, finances, transportation. ECHO Results (as available) EF% 65 Exam & Diagnostic Data Vital Signs and I&O Vital Signs Date Time Temp Pulse Resp B/P B/P Pulse O2 O2 Flow FiO2 Mean Ox Delivery Rate 01/01 1230 69 194/80 01/01 1230 69 194/80 01/01 0823 168/70 01/01 0616 97.6 73 18 140/70 92 Room Air 12/31 2217 98.8 72 16 170/78 94 Room Air 12/31 1939 160/80 12/31 1812 98.3 74 18 178/80 94 Room Air 12/31 1652 97.1 78 20 139/64 95 Room Air 12/31 1446 75 20 152/69 98 Room Air 12/31 1421 98.6 76 20 198/87 97 Room Air 12/31 1420 98.6 76 20 198/87 12/31 1357 76 20 199/97 96 Room Air 12/31 1304 98.6 72 20 210/96 96 Room Air 12/31 1302 72 20 210/96 12/31 1302 72 20 210/96 12/31 1302 72 20 210/96 Intake & Output 01/01 0400 12/31 0400 12/30 0400 Intake Total 4060 Output Total 250 350 50 Balance 3810 -350 -50 Intake, 4000 Dialysate Intake, Oral 60 Number 0 Bowel Movements Output, 100 100 Dialysate Output, Urine 150 250 50 Patient 214 lb 230 lb Weight Weight Bed scale Estimated Measurement Method Physical Exam: Gen - NAD Head - NCAT Eyes - anicteric sclera, EOMI Neck - supple, no LAD CV - RRR, no m/r/g Chest - clear, no w/r/r Abd - soft, NTND Upper ext - warm, no edema Lower ext - trace RLE edema Skin - no rash or jaundice Neuro - AOX3, grossly nonfocal Results Pertinent Lab Results: Laboratory Tests 01/01 01/01 12/31 12/31 1230 0325 2135 2038 Chemistry Sodium Pending Potassium Pending Chloride Pending Carbon Dioxide Pending Anion Gap Pending BUN Pending Creatinine Pending BUN/Creatinine Ratio Pending Phosphorus (2.5 - 4.5 mg/dL) 5.7 H Troponin I (< 0.11 ng/ml) 0.05 0.05 Hematology Lymphocytes (%) 31 % Normal PMNs (%) 4 Misc Hematology Test (%) Other Body Source Fluid WBC (0 - 5 /CUMM) 10 H Fld Total RBCs Counted (0 /CUMM) 7 H 12/31 12/31 1130 1030 Chemistry Sodium (137 - 145 mmol/L) 140 Potassium (3.5 - 5.1 mmol/L) 5.1 Chloride (98 - 107 mmol/L) 104 Carbon Dioxide (22 - 30 mmol/L) 19 L Anion Gap (5 - 16) 17 H BUN (7 - 17 mg/dL) 69 H Creatinine (0.5 - 1.0 mg/dL) 10.1 *H Estimated GFR (>60 ml/min) 4 L BUN/Creatinine Ratio (7 - 25 %) 6.8 L Glucose (65 - 99 mg/dL) 122 H Calcium (8.4 - 10.2 mg/dL) 9.0 Total Bilirubin (0.2 - 1.3 mg/dL) 0.7 AST (14 - 36 U/L) 16 ALT (9 - 52 U/L) 22 Alkaline Phosphatase (<127 U/L) 92 Troponin I (< 0.11 ng/ml) 0.04 Total Protein (6.3 - 8.2 g/dL) 5.5 L Albumin (3.5 - 5.0 g/dL) 3.2 L Globulin (1.9 - 4.2 gm/dL) 2.3 Albumin/Globulin Ratio (1.1 - 2.2 %) 1.4 Lipase (23 - 300 U/L) 61 Coagulation PT (9.4 - 12.5 SEC) 10.8 INR (0.90 - 1.19) 0.99 Hematology CBC w Diff NO MAN DIFF REQ WBC (4.8 - 10.8 /CUMM) 7.4 RBC (4.20 - 5.40 /CUMM) 3.95 L Hgb (12.0 - 16.0 G/DL) 11.8 L Hct (37 - 47 %) 35.8 L MCV (81.0 - 99.0 FL) 90.8 MCH (27.0 - 31.0 PG) 30.0 MCHC (33.0 - 37.0 G/DL) 33.0 RDW (11.5 - 14.5 %) 13.7 Plt Count (130 - 400 /CUMM) 213 MPV (7.4 - 10.4 FL) 9.5 Gran % (42.2 - 75.2 %) 75.6 H Lymphocytes % (20.5 - 51.1 %) 18.3 L Monocytes % (1.7 - 9.3 %) 4.5 Eosinophils % (0 - 5 %) 1.3 Basophils % (0.0 - 2.0 %) 0.3 Absolute Granulocytes (1.4 - 6.5 /CUMM) 5.6 Absolute Lymphocytes (1.2 - 3.4 /CUMM) 1.4 Absolute Monocytes (0.10 - 0.60 /CUMM) 0.3 Absolute Eosinophils (0.0 - 0.7 /CUMM) 0.1 Absolute Basophils (0.0 - 0.2 /CUMM) 0 Urines Urine Color (YEL,AMB,STR) YEL Urine Clarity (CLEAR) HAZY H Urine pH (5.0 - 8.0) 7.5 Ur Specific [place] (1.001 - 1.035) 1.020 Urine Protein (NEG,<30 MG/DL) 100 H Urine Ketones (NEG) NEG Urine Nitrite (NEG) NEG Urine Bilirubin (NEG) NEG Urine Urobilinogen (0.1 - 1.0 EU/dl) 0.2 Ur Leukocyte Esterase (NEG) TRACE H Ur Microscopic SEDIMENT EXAMINED Urine RBC (0 - 5 /HPF) 3-5 Urine WBC (0 - 2 /HPF) 15-25 H Ur Epithelial Cells (NONE,FEW) FEW Urine Hemoglobin (NEG) MOD H Urine Glucose (N MG/DL) 100 H Imaging/Other Studies: MRI IMPRESSION: 1. There are no acute bleeds or infarcts. No masses are demonstrated. 2. There are gliotic and encephalomalacia changes in multiple areas consistent with sequelae of chronic infarcts. Chronic hemorrhagic changes are noted as described above. 3. There is extensive fluid signal in the bilateral mastoid air cells. Assessment/Plan Assessment/Recommendations Assessment: ESRD - 18 a manual exchanges at home. I think that it's worth continuing with 4 green exchanges and adding a red exchange given her hypertension. This was her regimen at home. Fluid cell count of 10 not consistent peritonitis. ?UTI - 25,000 CFU GNR - has 25 WBC on UA - may be worth treating. Not clear to me that this is the cause of her KENDRICK. HTN - BP regimen was being increased as an outpatient. I think that we can go up on her labetalol and make it 200mg TID dosing. Anemia - Hg above goal - no need for YSABEL here. Recommendations: -Will change PD script to 4 green (2.5% dianeal) exchanges and 1 red (4.25% dianeal exchange) daily -f/u PD fluid culture -Increase labetalol to 200mg q8 -Consider treatment of bacteriuria -No need for YSABEL Please call [phone] with ?'s
[2018-01-01 14:40] VITALS: BP 178/80
[2018-01-01 21:26] VITALS: BP 152/78
--- NOTE | 2018-01-02 06:40 | PN- Housestaff ---
Rl SHARP,Ami 01/02/18 0639: Subjective Follow-up For: Malignant hypertension Complaints: no complaints Tele-Events Since Last Visit: Normal sinus rhythm heart rate 86 Subjective: Patient was seen and examined at bedside no overnight events. She denies chest pain, headache, nausea, weakness, aLTERED sensation. Review of Systems Constitutional: Reports: weakness. EENTM: Reports: no symptoms. Cardiovascular: Reports: no symptoms. Respiratory: Reports: no symptoms. Neurological/Psychological: Reports: tingling. Objective Last 24 Hrs of Vital Signs/I&O Vital Signs Date Time Temp Pulse Resp B/P B/P Pulse O2 O2 Flow FiO2 Mean Ox Delivery Rate 01/02 0808 54 150/60 01/02 0808 54 150/60 01/02 0650 97.7 70 18 154/66 97 Room Air 01/02 0620 62 154/66 01/01 2126 98.1 62 18 152/78 96 Room Air 01/01 2115 62 152/78 01/01 2115 62 152/78 01/01 2115 62 152/78 01/01 1519 178/80 01/01 1440 97.7 71 20 178/80 95 Room Air 01/01 1230 69 194/80 01/01 1230 69 194/80 Intake & Output 01/02 1600 01/02 0800 01/02 0000 Intake Total Output Total 500 250 Balance -500 -250 Output, 300 Dialysate Output, Urine 200 250 Patient 207 lb 208 lb Weight Weight Bed scale Measurement Method Physical Exam General Appearance: Alert, Oriented X3, Cooperative, No Acute Distress Cardiovascular: Regular Rate, Normal S1, Normal S2, No Murmurs Lungs: Clear to Auscultation Abdomen: Soft, No Tenderness, No Hepatospenomegaly Neurological: Normal Speech, Strength at 5/5 X4 Ext, Normal Tone, Cranial Nerves 3-12 NL Current Medications: Current Medications Sig/Rich Start time Last Medication Dose Route Stop Time Status Admin Aspirin 81 MG DAILY 01/01 0900 AC 01/01 PO 0823 Atorvastatin Calcium 10 MG 1700 01/01 1700 AC 01/01 PO 1609 Calcium Acetate 667 MG WM 01/01 1200 AC 01/02 PO 1140 Furosemide 80 MG DAILY 01/01 0900 AC 01/02 PO 0807 Heparin Sodium 5,000 UNIT Q8 12/31 2200 AC 01/02 (Porcine) SC 1328 Hydralazine HCl 25 MG BID 01/01 0900 AC 01/02 PO 0808 Labetalol HCl 200 MG BID 01/02 2100 AC PO Labetalol HCl 200 MG Q8 01/01 1400 DC 01/02 PO 0620 Levothyroxine Sodium 0.05 MG DAILY AC 01/02 0845 AC 01/02 PO 1140 Lisinopril 20 MG BID 01/01 0900 AC 01/02 PO 0808 Omeprazole 40 MG DAILY AC PRN 12/31 2100 AC PO Ondansetron HCl 4 MG ONCE ONE 01/02 0830 DC 01/02 IV 01/02 0831 0841 Sevelamer Carbonate 800 MG WM 12/31 2100 AC 01/02 PO 1140 Last 24 Hrs of Lab/Carlos Results Last 24 Hrs of Labs/Mics: Laboratory Tests 01/02/18 06: Anion Gap 10, Estimated GFR 4 L, BUN/Creatinine Ratio 5.8 L, Hemoglobin A1c 4.8, Triglycerides 89, Cholesterol 122, LDL Cholesterol, Calc 71, HDL Cholesterol 34 L, Cholesterol/HDL Ratio 4, Thyroglobulin Antibody < 15, Thyroid Peroxidase Ab < 28 Assessment/Plan Assessment: 67-year-old female with past medical history of hypertension, stroke, hyperlipidemia, migraine headache, GERD, heart failure with preserved ejection fraction, CKD on peritoneal dialysis [ Rapidly proliferative glomerulonephritis, pauciimmune], came with complaints of dizziness and vomiting. Assessment and plan 1. Hypertensive encephalopathy Patient admitted for hypertensive encephalopathy. Her blood pressure is controlled with Lasix, labetalol 100 twice a day [patient home doses 200 twice a day], lisinopril, hydralazine 25. We will maintain to decrease her blood pressures not more than 20% in view of potential stroke. Patient labETELOL dose was increased to 200 every 8 as PER nephrology, but this was switched back to 200 twice a day review of hypotension, This morning [100/50], Peritonitis was ruled out yesterday [cell count 10] 2. End-stage renal disease on peritoneal dialysis-patient is on 4 times a day. Nephrology is on board. 3. Stroke-patient had stroke in 2015. Follows Dr. Cline at [facility]. Patient complained of right hand tingling sensation lasted for 5-10 minutes today at 9 am. neuro Examination was normal. Again around, noon patient complained of word finding difficulties. Full neuro examination was normal. Given that patient came in with hypertensive encephalopathy and her drop in blood pressure more than 20% there is a high suspicion for stroke. We will take stat CAT scan and get a neurology consult. 4. HFpEF-stable. Cardiology on board patient might need outpatient stress test. We will continue all her home medications. 5. Patient was seen by physical therapy who suggested home PT. Code-full code Diet-renal dialysis diet Update-CAT scan-no acute infarct. We will follow with neurology. Problem List: 1. Hypertensive encephalopathy Pain Ratin Pain Location: none Pain Goal: Remain pain free Pain Plan: tylenol Tomorrow's Labs & Rationales: cbc,bep Janiya SHARP,Donna 01/02/18 1110: Attending MD Review Statement Attending Statement Attending MD Statement: examined this patient, discuss w/resident/PA/LABORER WHARF, agreed w/resident/PA/LABORER WHARF, reviewed EMR data (avail), discussed with nursing, discussed with case mgmt, reviewed images Attending Assessment/Plan: Patient is feeling nauseous today. She was also feeling dizzy. Her blood pressure early in the a.m. was in the 150s and she got her labetalol and then she got her hydralazine and lisinopril. Right now her blood pressure is 100/50. She is a 67-year-old with microscopic polyangiitis and a glomerulonephritis with end-stage renal disease on peritoneal dialysis. She came in with a hypertensive emergency. The MRI didn't show an acute stroke or PRES but did show chronic areas of amyloid angiopathy. She has very labile blood pressure. The question is does she take all of her medications as prescribed at home because we continued all of her medications and slightly increased the labetalol dose but are now dealing with hypotensive issues. Will back off on the labetalol back to her twice a day dosing and watch her pressure closely. I spoke to her her at length that I think she has asymptomatic bacteriuria. She has a positive UA and urine culture with no fever, no white count and no symptoms that we are watching closely.
[2018-01-02 06:50] VITALS: BP 154/66
--- NOTE | 2018-01-02 07:47 | Cons- Endocrinology ---
General Information and HPI Consulting Request Date of Consult: 01/02/18 Requested By: medical team Reason for Consult: Elevated TSH Source of Information: patient, old records Exam Limitations: no limitations History of Present Illness: This 67-year-old woman came to the hospital because of a severe headache. She has a past history of hypertension hyperlipidemia and a previous stroke as well as migraine headache. She has end-stage renal disease on peritoneal dialysis. She also had some dizziness. The patient's TSH was found to be 22. She has no previous history of thyroid disease. She is not aware of anybody in her family who has thyroid disease. The patient does feel cold a lot and has a lot of fatigue. She has lost quite a bit of hair from her scalp. Allergies/Medications Allergies: Coded Allergies: Penicillins (Intermediate, HIVES 01/04/16) Home Med List: Calcium Acetate 667 MG TABLET 1 TAB PO 4 TIMES/DAY supplement (Reported) Cinacalcet HCl (Sensipar) 30 MG TABLET 1 TAB PO DAILY hypocalcemia (Reported) Furosemide 80 MG TABLET 1 TAB PO DAILY WATER RETENTION (Reported) Hydralazine HCl 25 MG TABLET 1 TAB PO BID HEART (Reported) Labetalol HCl 200 MG TABLET 1 TAB PO BID htn (Reported) Levothyroxine Sodium (Synthroid) 50 MCG TABLET 0.05 MG PO DAILY AC hypothyroid Lisinopril 20 MG TABLET 1 TAB PO QPM BP (Reported) Omeprazole 40 MG CAPSULE.DR 1 CAP PO DAILY GI (Reported) Sevelamer Carbonate (Renvela) 800 MG TABLET 1 TAB PO TID UNKNOWN (Reported) Simvastatin (Simvastatin*) 20 MG TABLET 1 TAB PO QPM CHOLESTEROL (Reported) Review of Systems Review of Systems Constitutional: Denies: chills. Cardiovascular: Denies: chest pain. Respiratory: Denies: short of breath. GI: Reports: abdominal pain, nausea. Skin: Reports: dryness. 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 no Functional Ability ADLs Independent: dressing, eating, toileting, bathing. Ambulation: independent IADLs Independent: housework, food prep, telephone, medication admin. Needs Assist: shopping, finances, transportation. ECHO Results (as available) EF% 65 Exam & Diagnostic Data Last 24 Hrs of Vital Signs/I&O Vital Signs Date Time Temp Pulse Resp B/P B/P Pulse O2 O2 Flow FiO2 Mean Ox Delivery Rate 01/02 0650 97.7 70 18 154/66 97 Room Air 01/03 620 62 154/66 01/01 2126 98.1 62 18 152/78 96 Room Air 01/01 2115 62 152/78 01/01 2115 62 152/78 01/01 2115 62 152/78 01/01 1519 178/80 01/01 1440 97.7 71 20 80 95 Room Air 01/01 1230 69 194/80 01/01 1230 69 194/80 01/01 0823 168/70 Intake & Output 01/02 0800 01/02 0000 01/01 1600 Intake Total 400 Output Total 500 250 250 Balance -500 -250 150 Intake, Oral 400 Output, 300 Dialysate Output, Urine 200 250 250 Patient 207 lb 208 lb Weight Weight Bed scale Measurement Method Vital Signs Date Time Temp Pulse Resp B/P B/P Pulse O2 O2 Flow FiO2 Mean Ox Delivery Rate 01/02 0650 97.7 70 18 154/66 97 Room Air 01/03 620 62 154/66 01/01 2126 98.1 62 18 152/78 96 Room Air 01/01 2115 62 152/78 01/01 2115 62 152/78 01/01 2115 62 152/78 01/01 1519 178/80 01/01 1440 97.7 71 20 17880 95 Room Air 01/01 1230 69 194/80 01/01 1230 69 194/80 01/01 0823 168/70 Intake & Output 01/02 0800 01/02 0000 01/01 1600 Intake Total 400 Output Total 500 250 250 Balance -500 -250 150 Intake, Oral 400 Output, 300 Dialysate Output, Urine 200 250 250 Patient 207 lb 208 lb Weight Weight Bed scale Measurement Method Physical Exam General Appearance: alert, awake Head: normal appearance Eyes: Bilateral: normal appearance. Respiratory: normal breath sounds Cardiovascular: regular rate/rhythm Gastrointestinal: normal bowel sounds Extremities: normal inspection Labs/Carlos Results: Laboratory Tests 01/02 01/01 01/01 12/31 12/31 0605 1230 0325 2131 2030 Chemistry Sodium (137 - 145 mmol/L) Pending 137 Potassium (3.5 - 5.1 mmol/L) Pending 4.4 Chloride (98 - 107 mmol/L) Pending 102 Carbon Dioxide (22 - 30 mmol/L) Pending 22 Anion Gap (5 - 16) Pending 13 BUN (7 - 17 mg/dL) Pending 61 H Creatinine (0.5 - 1.0 mg/dL) Pending 9.9 *H Estimated GFR (>60 ml/min) 4 L BUN/Creatinine Ratio (7 - 25 %) Pending 6.2 L Hemoglobin A1c Pending Phosphorus (2.5 - 4.5 mg/dL) 5.7 H Troponin I (< 0.11 ng/ml) 0.05 0.05 Triglycerides Pending Cholesterol Pending LDL Cholesterol, Calc Pending HDL Cholesterol Pending Cholesterol/HDL Ratio Pending TSH (0.270 - 4.200 uIU/mL) 22.800 H Free T4 (0.78 - 2.44 ng/dL) 1.23 Hematology Lymphocytes (%) 31 % Normal PMNs (%) 4 Misc Hematology Test (%) Other Body Source Fluid WBC (0 - 5 /CUMM) 10 H Fld Total RBCs Counted (0 /CUMM) 7 H 12/31 12/31 1130 1030 Chemistry Sodium (137 - 145 mmol/L) 140 Potassium (3.5 - 5.1 mmol/L) 5.1 Chloride (98 - 107 mmol/L) 104 Carbon Dioxide (22 - 30 mmol/L) 19 L Anion Gap (5 - 16) 17 H BUN (7 - 17 mg/dL) 69 H Creatinine (0.5 - 1.0 mg/dL) 10.1 *H Estimated GFR (>60 ml/min) 4 L BUN/Creatinine Ratio (7 - 25 %) 6.8 L Glucose (65 - 99 mg/dL) 122 H Calcium (8.4 - 10.2 mg/dL) 9.0 Total Bilirubin (0.2 - 1.3 mg/dL) 0.7 AST (14 - 36 U/L) 16 ALT (9 - 52 U/L) 22 Alkaline Phosphatase (<127 U/L) 92 Troponin I (< 0.11 ng/ml) 0.04 Total Protein (6.3 - 8.2 g/dL) 5.5 L Albumin (3.5 - 5.0 g/dL) 3.2 L Globulin (1.9 - 4.2 gm/dL) 2.3 Albumin/Globulin Ratio (1.1 - 2.2 %) 1.4 Lipase (23 - 300 U/L) 61 Coagulation PT (9.4 - 12.5 SEC) 10.8 INR (0.90 - 1.19) 0.99 Hematology CBC w Diff NO MAN DIFF REQ WBC (4.8 - 10.8 /CUMM) 7.4 RBC (4.20 - 5.40 /CUMM) 3.95 L Hgb (12.0 - 16.0 G/DL) 11.8 L Hct (37 - 47 %) 35.8 L MCV (81.0 - 99.0 FL) 90.8 MCH (27.0 - 31.0 PG) 30.0 MCHC (33.0 - 37.0 G/DL) 33.0 RDW (11.5 - 14.5 %) 13.7 Plt Count (130 - 400 /CUMM) 213 MPV (7.4 - 10.4 FL) 9.5 Gran % (42.2 - 75.2 %) 75.6 H Lymphocytes % (20.5 - 51.1 %) 18.3 L Monocytes % (1.7 - 9.3 %) 4.5 Eosinophils % (0 - 5 %) 1.3 Basophils % (0.0 - 2.0 %) 0.3 Absolute Granulocytes (1.4 - 6.5 /CUMM) 5.6 Absolute Lymphocytes (1.2 - 3.4 /CUMM) 1.4 Absolute Monocytes (0.10 - 0.60 /CUMM) 0.3 Absolute Eosinophils (0.0 - 0.7 /CUMM) 0.1 Absolute Basophils (0.0 - 0.2 /CUMM) 0 Urines Urine Color (YEL,AMB,STR) YEL Urine Clarity (CLEAR) HAZY H Urine pH (5.0 - 8.0) 7.5 Ur Specific [place] (1.001 - 1.035) 1.020 Urine Protein (NEG,<30 MG/DL) 100 H Urine Ketones (NEG) NEG Urine Nitrite (NEG) NEG Urine Bilirubin (NEG) NEG Urine Urobilinogen (0.1 - 1.0 EU/dl) 0.2 Ur Leukocyte Esterase (NEG) TRACE H Ur Microscopic SEDIMENT EXAMINED Urine RBC (0 - 5 /HPF) 3-5 Urine WBC (0 - 2 /HPF) 15-25 H Ur Epithelial Cells (NONE,FEW) FEW Urine Hemoglobin (NEG) MOD H Urine Glucose (N MG/DL) 100 H Assessment/Plan Assessment/Plan The patient has evidence of hypothyroidism. Her TSH is 22.8 with a free T4 of 1.23. She does have some symptoms including fatigue and feeling cold all the time. The patient deserves further evaluation. We should check her thyroid antibodies including antithyroglobulin and antithyroid peroxidase. We should repeat her TSH and free T4. The patient would also benefit from an ultrasound of her thyroid to check the size and shape of her thyroid gland. We can begin the patient on on levothyroxine 50 mcg once a day and repeat her thyroid tests in 4-6 weeks. Consult Acknowledgment - Thank you for your consult request.
--- NOTE | 2018-01-02 08:27 | Discharge Summary ---
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 No focal neurological symptoms on exam initially, given Enalaprilat and Labetalol in ED with improvement in BP and rapid improvement in symptoms. Allergies: Coded Allergies: Penicillins (Intermediate, HIVES 01/04/16) Discharge Instructions Medications at Discharge Discharge Medications: Continue taking these medications: Omeprazole (Omeprazole) 40 MG CAPSULE.DR 1 Capsule ORAL DAILY Qty = 30 Comments: PER PT MED LIST Lisinopril (Lisinopril) 20 MG TABLET 1 Tablet ORAL Every night Qty = 90 Comments: PER PT Furosemide (Furosemide) 80 MG TABLET 1 Tablet ORAL DAILY Sevelamer Carbonate (Renvela) 800 MG TABLET 1 Tablet ORAL THREE TIMES DAILY Simvastatin (Simvastatin*) 20 MG TABLET 1 Tablet ORAL Every night Hydralazine HCl (Hydralazine HCl) 25 MG TABLET 1 Tablet ORAL TWICE DAILY Qty = 60 Calcium Acetate (Calcium Acetate) 667 MG TABLET 1 Tablet ORAL 4 TIMES A DAY Qty = 30
--- NOTE | 2018-01-02 11:12 | PN- Nephrology ---
Assessment/Plan Nephrology Assessment: ESRD - Has been resistant to further reductions in dry weight despite mild LE edema. Will plan to continue 4 green (2.5% dianeal) and 1 red (4.25% dianeal) exchanges. No evidence of peritonitis or other PD issues. Bacteriuria - asymptomatic - decision not to treat. HTN - Uptitration of labetalol limited by HR. OK to go back to BID dosing. Monitor BP - may go up on hydralazine in future. Anemia - Hg above goal - no need for YSABEL here. Suggestion: -Cont current PD script -Decrease labetalol frequency back to BID -Hold off on YSABEL Please call [phone] with ?'s Subjective Subjective: Pt seen and examined on PD Episode of hand tingling; calcium 9.0 (corrected 9.7) BP 150's-160's/60's-70's HR as low as 54 No PD issues Objective Vital Signs and I&Os Vital Signs Date Time Temp Pulse Resp B/P B/P Pulse O2 O2 Flow FiO2 Mean Ox Delivery Rate 01/02 0808 54 150/60 01/02 0808 54 150/60 01/02 0650 97.7 70 18 154/66 97 Room Air 01/02 0620 62 154/66 01/01 2126 98.1 62 18 152/78 96 Room Air 01/01 2115 62 152/78 01/01 2115 62 152/78 01/01 2115 62 152/78 01/01 1519 178/80 01/01 1440 97.7 71 20 178/80 95 Room Air 01/01 1230 69 194/80 01/01 1230 69 194/80 Intake & Output 01/02 1600 01/02 0400 01/01 1600 01/01 0400 12/31 1600 12/31 0400 Intake Total 4460 Output Total 300 450 500 350 50 Balance -300 -450 3960 -350 -50 Intake, 4000 Dialysate Intake, Oral 460 Number 0 Bowel Movements Output, 100 200 100 100 Dialysate Output, Urine 200 250 400 250 50 Patient 207 lb 208 lb 214 lb 230 lb Weight Weight Bed scale Bed scale Estimated Measurement Method Physical Exam: Gen - NAD HEENT - supple CV - RRR, no m/r/g Chest - clear, no w/r/r Abd - soft, NTND Ext - b/l trace edema Neuro - AOX3, grossly nonfocal Current Medications: Current Medications Sig/Rich Start time Last Medication Dose Route Stop Time Status Admin Aspirin 81 MG DAILY 01/01 0900 AC 01/01 PO 0823 Atorvastatin Calcium 10 MG 1700 01/01 1700 AC 01/01 PO 1609 Calcium Acetate 667 MG WM 01/01 1200 AC 01/02 PO 0809 Furosemide 80 MG DAILY 01/01 0900 AC 01/02 PO 0807 Heparin Sodium 5,000 UNIT Q8 12/31 2200 AC 01/02 (Porcine) SC 0620 Hydralazine HCl 25 MG BID 01/01 0900 AC 01/02 PO 0808 Labetalol HCl 200 MG Q8 01/01 1400 AC 01/02 PO 0620 Labetalol HCl 100 MG BID 01/01 0900 DC 01/01 PO 0823 Levothyroxine Sodium 0.05 MG DAILY AC 01/02 0845 AC PO Lisinopril 20 MG BID 01/01 0900 AC 01/02 PO 0808 Omeprazole 40 MG DAILY AC PRN 12/31 2100 AC PO Ondansetron HCl 4 MG ONCE ONE 01/02 0830 DC 01/02 IV 01/02 0831 0841 Sevelamer Carbonate 800 MG 12/31 2100 AC 01/02 PO 0809 Results Pertinent Lab Results: Laboratory Tests 01/02 01/01 01/01 12/31 12/31 0605 1230 0325 2135 2038 Chemistry Sodium (137 - 145 mmol/L) 137 137 Potassium (3.5 - 5.1 mmol/L) 4.5 4.4 Chloride (98 - 107 mmol/L) 101 102 Carbon Dioxide (22 - 30 mmol/L) 26 22 Anion Gap (5 - 16) 10 13 BUN (7 - 17 mg/dL) 56 H 61 H Creatinine (0.5 - 1.0 mg/dL) 9.7 *H 9.9 *H Estimated GFR (>60 ml/min) 4 L 4 L BUN/Creatinine Ratio (7 - 25 %) 5.8 L 6.2 L Hemoglobin A1c (4.2 - 5.8 %) 4.8 Phosphorus (2.5 - 4.5 mg/dL) 5.7 H Troponin I (< 0.11 ng/ml) 0.05 0.05 Triglycerides (<150 mg/dL) 89 Cholesterol (<200 MG/DL) 122 LDL Cholesterol, Calc (65 - 129 mg/dL) 71 HDL Cholesterol (40 - 60 mg/dL) 34 L Cholesterol/HDL Ratio (0.00 - 4.23 %) 4 TSH (0.270 - 4.200 uIU/mL) 22.800 H Free T4 (0.78 - 2.44 ng/dL) 1.23 Hematology Lymphocytes (%) 31 % Normal PMNs (%) 4 Misc Hematology Test (%) Immunology Thyroglobulin Antibody (< 61 U/mL) Pending Thyroid Peroxidase Ab (< 61 U/mL) Pending Other Body Source Fluid WBC (0 - 5 /CUMM) 10 H Fld Total RBCs Counted (0 /CUMM) 7 H 12/31 12/31 1130 1030 Chemistry Sodium (137 - 145 mmol/L) 140 Potassium (3.5 - 5.1 mmol/L) 5.1 Chloride (98 - 107 mmol/L) 104 Carbon Dioxide (22 - 30 mmol/L) 19 L Anion Gap (5 - 16) 17 H BUN (7 - 17 mg/dL) 69 H Creatinine (0.5 - 1.0 mg/dL) 10.1 *H Estimated GFR (>60 ml/min) 4 L BUN/Creatinine Ratio (7 - 25 %) 6.8 L Glucose (65 - 99 mg/dL) 122 H Calcium (8.4 - 10.2 mg/dL) 9.0 Total Bilirubin (0.2 - 1.3 mg/dL) 0.7 AST (14 - 36 U/L) 16 ALT (9 - 52 U/L) 22 Alkaline Phosphatase (<127 U/L) 92 Troponin I (< 0.11 ng/ml) 0.04 Total Protein (6.3 - 8.2 g/dL) 5.5 L Albumin (3.5 - 5.0 g/dL) 3.2 L Globulin (1.9 - 4.2 gm/dL) 2.3 Albumin/Globulin Ratio (1.1 - 2.2 %) 1.4 Lipase (23 - 300 U/L) 61 Coagulation PT (9.4 - 12.5 SEC) 10.8 INR (0.90 - 1.19) 0.99 Hematology CBC w Diff NO MAN DIFF REQ WBC (4.8 - 10.8 /CUMM) 7.4 RBC (4.20 - 5.40 /CUMM) 3.95 L Hgb (12.0 - 16.0 G/DL) 11.8 L Hct (37 - 47 %) 35.8 L MCV (81.0 - 99.0 FL) 90.8 MCH (27.0 - 31.0 PG) 30.0 MCHC (33.0 - 37.0 G/DL) 33.0 RDW (11.5 - 14.5 %) 13.7 Plt Count (130 - 400 /CUMM) 213 MPV (7.4 - 10.4 FL) 9.5 Gran % (42.2 - 75.2 %) 75.6 H Lymphocytes % (20.5 - 51.1 %) 18.3 L Monocytes % (1.7 - 9.3 %) 4.5 Eosinophils % (0 - 5 %) 1.3 Basophils % (0.0 - 2.0 %) 0.3 Absolute Granulocytes (1.4 - 6.5 /CUMM) 5.6 Absolute Lymphocytes (1.2 - 3.4 /CUMM) 1.4 Absolute Monocytes (0.10 - 0.60 /CUMM) 0.3 Absolute Eosinophils (0.0 - 0.7 /CUMM) 0.1 Absolute Basophils (0.0 - 0.2 /CUMM) 0 Urines Urine Color (YEL,AMB,STR) YEL Urine Clarity (CLEAR) HAZY H Urine pH (5.0 - 8.0) 7.5 Ur Specific [place] (1.001 - 1.035) 1.020 Urine Protein (NEG,<30 MG/DL) 100 H Urine Ketones (NEG) NEG Urine Nitrite (NEG) NEG Urine Bilirubin (NEG) NEG Urine Urobilinogen (0.1 - 1.0 EU/dl) 0.2 Ur Leukocyte Esterase (NEG) TRACE H Ur Microscopic SEDIMENT EXAMINED Urine RBC (0 - 5 /HPF) 3-5 Urine WBC (0 - 2 /HPF) 15-25 H Ur Epithelial Cells (NONE,FEW) FEW Urine Hemoglobin (NEG) MOD H Urine Glucose (N MG/DL) 100 H Imaging/Other Studies: MRI Head IMPRESSION: 1. There are no acute bleeds or infarcts. No masses are demonstrated. 2. There are gliotic and encephalomalacia changes in multiple areas consistent with sequelae of chronic infarcts. Chronic hemorrhagic changes are noted as described above. 3. There is extensive fluid signal in the bilateral mastoid air cells.
--- NOTE | 2018-01-02 13:34 | CT SCAN REPORT ---
EXAMINATION: CT HEAD WITHOUT CONTRAST CLINICAL INFORMATION: Tingling and word finding difficulty. COMPARISON: CT head 12/31/2017. MRI brain 01/01/2018. CT head 01/04/2016 TECHNIQUE: Contiguous axial imaging was performed from the skull base to vertex without intravenous administration of contrast. DLP: 596 mGy-cm FINDINGS: Focal encephalomalacia is present in the right occipital lobe and to a lesser degree the left occipital lobe consistent with chronic infarcts as noted on the comparison examinations. Focal cortical encephalomalacia is present in the anterior right frontal lobe consistent with a chronic infarct is noted on the comparison exams. Focal prominence of the extra-axial space is present along the anterior left frontal lobe and may represent the presence of an arachnoid cyst grossly unchanged compared with 01/04/2016. Focal insufflation consistent with a chronic infarct is present in the posterior left superior frontal lobe gyrus unchanged compared with 01/04/2016. No intracranial hemorrhage, tumors or acute appearing infarcts are visualized. Mild nonspecific opacification of scattered right mastoid tip air cells is noted. The visualized paranasal sinuses are clear. IMPRESSION: 1. No acute abnormalities identified. 2. Multifocal chronic infarcts including infarcts within the left and right parietal lobes, posterior left frontal lobe and anterior right frontal lobe.
[2018-01-02 14:00] VITALS: BP 156/70
--- NOTE | 2018-01-02 14:20 | Cons- Neurology ---
See Addendum General Information and HPI Consulting Request Date of Consult: 01/02/18 Requested By: Janiya SHARP,Donna Espitia History of Present Illness: 67-year-old female with history of hypertension, hyperlipidemia, migraine and chronic kidney disease on peritoneal dialysis who has been relatively noncompliant with her treatment regimen, having stopped her statin of her own accord and maintained on no antiplatelet agents, who was admitted 2 days ago with headache, nausea, abdominal pain and dizziness. Her blood pressure was uncontrolled and this is being addressed. CAT scan of the brain on admission showed no acute abnormalities however there was evidence of multifocal, chronic infarcts involving the occipital lobes bilaterally, right greater than left, the right centrum semiovale in the left frontoparietal region. This morning she called out to her nurse due to numbness and either incoordination or weakness of the right hand. There may have been some blurry vision. There was no significant headache afterward. Although the patient did not offer this complaint, nursing said that there was some evidence this morning of transient speech difficulty. There was no reported facial droop or symptoms involving the right leg. Symptoms resolved within minutes. She is now back to baseline. She denies any palpitations or heightened stressors as of late. A CAT scan was repeated which showed no change. Allergies/Medications Allergies: Coded Allergies: Penicillins (Intermediate, HIVES 01/04/16) Home Med List: Calcium Acetate 667 MG TABLET 1 TAB PO 4 TIMES/DAY supplement (Reported) Cinacalcet HCl (Sensipar) 30 MG TABLET 1 TAB PO DAILY hypocalcemia (Reported) Furosemide 80 MG TABLET 1 TAB PO DAILY WATER RETENTION (Reported) Hydralazine HCl 25 MG TABLET 1 TAB PO BID HEART (Reported) Labetalol HCl 200 MG TABLET 1 TAB PO BID htn (Reported) Lisinopril 20 MG TABLET 1 TAB PO QPM BP (Reported) Omeprazole 40 MG CAPSULE.DR 1 CAP PO DAILY GI (Reported) Sevelamer Carbonate (Renvela) 800 MG TABLET 1 TAB PO TID UNKNOWN (Reported) Simvastatin (Simvastatin*) 20 MG TABLET 1 TAB PO QPM CHOLESTEROL (Reported) Review of Systems Review of Systems: Notable for recent dizziness, frequent headaches abdominal discomfort and nausea. 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 no Functional Ability ADLs Independent: dressing, eating, toileting, bathing. Ambulation: independent IADLs Independent: housework, food prep, telephone, medication admin. Needs Assist: shopping, finances, transportation. ECHO Results (as available) EF% 65 Exam & Diagnostic Data Vital Signs and I&O Vital Signs Date Time Temp Pulse Resp B/P B/P Pulse O2 O2 Flow FiO2 Mean Ox Delivery Rate 01/02 0808 54 150/60 01/02 0808 54 150/60 01/02 0650 97.7 70 18 154/66 97 Room Air 01/02 0620 62 154/66 01/01 2126 98.1 62 18 152/78 96 Room Air 01/01 2115 62 152/78 01/01 2115 62 152/78 01/01 2115 62 152/78 01/01 1519 178/80 01/01 1440 97.7 71 20 178/80 95 Room Air Intake & Output 01/02 1600 01/02 0800 01/02 0000 Intake Total Output Total 450 500 250 Balance -450 -500 -250 Output, 450 300 Dialysate Output, Urine 200 250 Patient 207 lb 208 lb Weight Weight Bed scale Measurement Method Pleasant middle-aged female in no acute distress. The head was normocephalic and atraumatic. Higher cortical function was intact. Speech was fluent. Pupils were equal and reactive. Extraocular movements were full. There was no nystagmus. There was no gross field cut. Face was symmetric. Hearing was grossly normal. Tongue was midline. Motor examination showed no drift of the upper extremities. There was no focal or lateralizing weakness. Deep tendon reflexes were brisk at the knees bilaterally. Plantar responses were flexor. Fine finger movements and rapid alternating movements performed normally. There was no ataxia on [id number] testing. Joint position sense was intact. The gait was untested. Assessment/Plan Assessment: By history, Renata's presentation this morning suggests TIA. She is now back to baseline. Her imaging shows multifocal, old strokes due to which embolic disease must be questioned. Recommendations: We would recommend that she be started back on a statin such as Lipitor. I would also suggest starting Plavix 75 mg per day. In order to best image her cerebral vasculature without exposing her to contrast agents, I would obtain a carotid ultrasound and a non-enhanced MRA of the head (not the neck). The patient is known to Dr. Peng. One might consider prolonged monitoring for cryptogenic atrial fibrillation. If this were the case, she would be a candidate for warfarin or a novel anticoagulant. Please feel free to call with any further questions. Consult Acknowledgment - Thank you for your consult request.
--- NOTE | 2018-01-02 15:52 | PN- Cardiology ---
Subjective Subjective: Ms. Hinojosa had 3 "episodes" earlier today. While ambulating with physical therapy at ~8:30 a.m. she became nauseated and bradycardic w/ heart rates as low as the high 40 bpm range. She received IV Zofran 4 mg 1 following which the nausea and bradycardia resolved after approximately one half hour. At ~9:30 a.m. she developed right hand numbness and weakness with an associated inability to recognize the buttons on her remote control that lasted a few minutes before spontaneously resolving. Finally, at ~11:45 a.m. she became transiently "aphasic" w/ delayed responses, according to nursing, that lasted ~5 minutes before spontaneously resolving. Other than the bradycardia, documented during the first episode, there were no dysrhythmias observed during the second 2 episodes. A "stat" head CT was performed at ~1:30 p.m. that revealed no significant changes from her prior study. Objective Vital Signs and I&Os Vital Signs Date Time Temp Pulse Resp B/P B/P Pulse O2 O2 Flow FiO2 Mean Ox Delivery Rate 01/02 1400 97.8 79 20 156/70 96 01/02 0808 54 150/60 01/02 0808 54 150/60 01/02 0650 97.7 70 18 154/66 97 Room Air 01/02 0620 62 154/66 01/01 2126 98.1 62 18 152/78 96 Room Air 01/01 2115 62 152/78 01/01 2115 62 152/78 01/01 211 62 152/78 Intake & Output 01/02 1600 01/02 0800 01/02 0000 01/01 1600 01/01 0800 01/01 0000 Intake Total 489 081 1071 Output Total 1550 500 250 250 350 250 Balance -1040 -500 -861 878 6144 -250 Intake, 4000 Dialysate Intake, IV 10 Intake, Oral 500 400 60 Number 0 Bowel Movements Output, 900 300 200 Dialysate Output, Urine 650 200 250 250 150 250 Patient 207 lb 208 lb 214 lb Weight Weight Bed scale Bed scale Measurement Method Physical Exam: Well-developed, obese elderly female in no acute distress. HEENT: Normocephalic, atraumatic, EOMI, ABD, no bruits. Lungs: Clear to auscultation bilaterally. Heart: S1, S2 grade 1-2/6 systolic murmur. No gallop or rub. PMI not well felt. Abdomen: Soft, nontender, positive bowel sounds. Extremities: No edema. Current Medications: Current Medications Sig/Rich Start time Last Medication Dose Route Stop Time Status Admin Aspirin 81 MG DAILY 01/01 0900 AC 01/01 PO 0823 Atorvastatin Calcium 10 MG 1700 01/01 1700 AC 01/01 PO 1609 Calcium Acetate 667 MG WM 01/01 1200 AC 01/02 PO 1140 Clopidogrel Bisulfate 75 MG DAILY 01/02 1430 CAN PO Furosemide 80 MG DAILY 01/01 0900 AC 01/02 PO 0807 Heparin Sodium 5,000 UNIT Q8 12/31 2200 AC 01/02 (Porcine) SC 1328 Hydralazine HCl 25 MG BID 01/01 0900 AC 01/02 PO 0808 Labetalol HCl 200 MG BID 01/02 2100 AC PO Labetalol HCl 200 MG Q8 01/01 1400 DC 01/02 PO 0620 Levothyroxine Sodium 0.05 MG DAILY AC 01/02 0845 AC 01/02 PO 1140 Lisinopril 20 MG BID 01/01 0900 AC 01/02 PO 0808 Omeprazole 40 MG DAILY AC PRN 12/31 2100 AC PO Ondansetron HCl 4 MG ONCE ONE 01/02 0830 DC 01/02 IV 01/02 0831 0841 Sevelamer Carbonate 800 MG WM 12/31 2100 AC 01/02 PO 1140 Results Last 48 Hrs of Labs/Mics: Laboratory Tests 01/02/18 0605: Anion Gap 10, Estimated GFR 4 L, BUN/Creatinine Ratio 5.8 L, Hemoglobin A1c 4.8, Triglycerides 89, Cholesterol 122, LDL Cholesterol, Calc 71, HDL Cholesterol 34 L, Cholesterol/HDL Ratio 4, Thyroglobulin Antibody < 15, Thyroid Peroxidase Ab < 28 01/01/18 1230: Anion Gap 13, Estimated GFR 4 L, BUN/Creatinine Ratio 6.2 L, TSH 22.800 H, Free T4 1.23 01/01/18 0325: Phosphorus 5.7 H, Troponin I 0.05 12/31/17 2135: Troponin I 0.05 12/31/17 2038: Lymphocytes 31, % Normal PMNs 4, Misc Hematology Test , Fluid WBC 10 H, Fld Total RBCs Counted 7 H Recent Imaging Studies: Head CT 01/02/2018: 1. No acute abnormalities identified. 2. Multifocal chronic infarcts including infarcts within the left and right parietal lobes, posterior left frontal lobe and anterior right frontal lobe. Assessment/Plan Assessment/Plan [id number] w/ hx of obesity, HTN, HLD, CKD, 2/2 microscopic polyangiitis Rx'd w/ pulse steroids & plasmapheresis w/o recovery of renal function for which she is on chronic PD (2012), & stroke (2014) who presented to the ED on 12/31/2017 a.m. w/ c/o severe KENDRICK, dizziness, "floaters", abd discomfort, nausea, an episode of vomiting after taking her meds, & transient tremors which resolved while she was in the ED whose blood pressure has improved, but who had 3 worrisome episodes earlier today w/ the second 2 c/w probable TIAs. The initial episode sounded vasovagal. While TIAs can certainly be associated w/ paroxysms of AF, the pt was on telemetry during the episodes that sounded c/w TIAs and there was no evidence of atrial fibrillation. We will review her echocardiogram to assess for a cardioembolic source for her TIAs. It may be necessary to perform a "bubble study" and/or LEONORA. This was discussed with Ms. Hinojosa. Present antihypertensive regimen includes: labetalol 200 mg teice times daily, lisinopril 20 mg twice daily, hydralazine 25 mg twice daily, and furosemide 80 mg daily. Her systolic blood pressure is presently 156/70 mmHg. Recommendations: * Continue statin and antiplatelet therapy. * Review echocardiogram for cardioembolic source the last 2 episodes she experienced today. * Given today's episodes, would avoid too tightly controlled hypertension. Would discuss optimal blood pressure parameters with neurology. * Continue DVT prophylaxis. Continue telemetry? Yes
--- NOTE | 2018-01-02 16:59 | PN- Student ---
Subjective Subjective: Patient complained today of dizziness, nausea and blurry vision while she was walking this morning. Blood pressure was checked (manually) at the moment and it was 104/50mmHg. She doesn't have any other complaints. Objective Objective: Vital Signs Date Time Temp Pulse Resp B/P B/P Pulse O2 O2 Flow FiO2 Mean Ox Delivery Rate 01/02 1400 97.8 79 20 156/70 96 01/02 0808 54 150/60 01/02 0808 54 150/60 01/02 0650 97.7 70 18 154/66 97 Room Air 01/02 0620 62 154/66 01/01 2126 98.1 62 18 152/78 96 Room Air 01/01 2115 62 152/78 01/01 2115 62 152/78 01/01 2115 62 152/78 ED Intake and Output 01/02 0000 01/01 1200 Intake Total 400 4060 Output Total 500 350 Balance -100 3710 Intake, 4000 Dialysate Intake, Oral 400 60 Number 0 Bowel Movements Output, 200 Dialysate Output, Urine 500 150 Patient 208 lb Weight Weight Bed scale Measurement Method Laboratory Tests 01/02 0605 Chemistry Sodium (137 - 145 mmol/L) 137 Potassium (3.5 - 5.1 mmol/L) 4.5 Chloride (98 - 107 mmol/L) 101 Carbon Dioxide (22 - 30 mmol/L) 26 Anion Gap (5 - 16) 10 BUN (7 - 17 mg/dL) 56 H Creatinine (0.5 - 1.0 mg/dL) 9.7 *H Estimated GFR (>60 ml/min) 4 L BUN/Creatinine Ratio (7 - 25 %) 5.8 L Hemoglobin A1c (4.2 - 5.8 %) 4.8 Triglycerides (<150 mg/dL) 89 Cholesterol (<200 MG/DL) 122 LDL Cholesterol, Calc (65 - 129 mg/dL) 71 HDL Cholesterol (40 - 60 mg/dL) 34 L Cholesterol/HDL Ratio (0.00 - 4.23 %) 4 Immunology Thyroglobulin Antibody (< 61 U/mL) < 15 Thyroid Peroxidase Ab (< 61 U/mL) < 28 PE: Patient is an amiable lady, alert, oriented x3 and in no acute distress. Skin looks dry, but normal for ethnicity. Normal S1 & S2 were heard with no additional murmurs or gallops. On lung auscultation vesicular sounds were heard. Abdomen was soft and nontender, with no rebound or guarding and normal bowel sounds were heard. Peritoneal catheter was seen and no tumor, dolor, calor or rubor was noted. Neck was supple, no JVD was seen and no thyromegaly was noted when asked to swallow. Lower extremities had trace BL edema up to her knees. On neurological exam, CN III-XII were normal, and so was the strenght in her 4 extremities (5/5) although a slight intention tremor was noted bilaterally on both hands Results Results: Laboratory Tests 01/02/18 0605: Anion Gap 10, Estimated GFR 4 L, BUN/Creatinine Ratio 5.8 L, Hemoglobin A1c 4.8, Triglycerides 89, Cholesterol 122, LDL Cholesterol, Calc 71, HDL Cholesterol 34 L, Cholesterol/HDL Ratio 4, Thyroglobulin Antibody < 15, Thyroid Peroxidase Ab < 28 01/01/18 1230: Anion Gap 13, Estimated GFR 4 L, BUN/Creatinine Ratio 6.2 L, TSH 22.800 H, Free T4 1.23 01/01/18 0325: Phosphorus 5.7 H, Troponin I 0.05 12/31/17 2135: Troponin I 0.05 12/31/17 2038: Lymphocytes 31, % Normal PMNs 4, Misc Hematology Test , Fluid WBC 10 H, Fld Total RBCs Counted 7 H 12/31/17 1130: Urine Color YEL, Urine Clarity HAZY H, Urine pH 7.5, Ur Specific Center 1.020, Urine Protein 100 H, Urine Ketones NEG, Urine Nitrite NEG, Urine Bilirubin NEG, Urine Urobilinogen 0.2, Ur Leukocyte Esterase TRACE H, Ur Microscopic SEDIMENT EXAMINED, Urine RBC 3-5, Urine WBC 15-25 H, Ur Epithelial Cells FEW, Urine Hemoglobin MOD H, Urine Glucose 100 H 12/31/17 1030: Anion Gap 17 H, Estimated GFR 4 L, BUN/Creatinine Ratio 6.8 L, Glucose 122 H , Calcium 9.0, Total Bilirubin 0.7, AST 16, ALT 22, Alkaline Phosphatase 92, Troponin I 0.04, Total Protein 5.5 L, Albumin 3.2 L, Globulin 2.3, Albumin/ Globulin Ratio 1.4, Lipase 61, PT 10.8, INR 0.99, CBC w Diff NO MAN DIFF REQ, RBC 3.95 L, MCV 90.8, MCH 30.0, MCHC 33.0, RDW 13.7, MPV 9.5, Gran % 75.6 H, Lymphocytes % 18.3 L, Monocytes % 4.5, Eosinophils % 1.3, Basophils % 0.3, Absolute Granulocytes 5.6, Absolute Lymphocytes 1.4, Absolute Monocytes 0.3, Absolute Eosinophils 0.1, Absolute Basophils 0 Microbiology 12/31 1901 BODY FLUID: Body Fluid Culture - CAN Cancelled: SPECIMEN NOT RECEIVED IN LABORATORY 12/31 1901 BODY FLUID: Gram Stain - CAN Cancelled: SPECIMEN NOT RECEIVED IN LABORATORY 12/31 1130 URINE ROUT: Urine Culture - COMP PROTEUS MIRABILIS Imaging: Head MRI: IMPRESSION: 1. There are no acute bleeds or infarcts. No masses are demonstrated. 2. There are gliotic and encephalomalacia changes in multiple areas consistent with sequelae of chronic infarcts. Chronic hemorrhagic changes are noted as described above. 3. There is extensive fluid signal in the bilateral mastoid air cells. Head CT: IMPRESSION: 1. No acute abnormalities identified. 2. Multifocal chronic infarcts including infarcts within the left and right parietal lobes, posterior left frontal lobe and anterior right frontal lobe. Echocardiogram: CONCLUSIONS 1. Normal EF of 55%. 2. Trace mitral regurgitation. 3. Trace tricuspid regurgitation. Assessment/Plan Assessment: Ms. 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 On arrival, her BP was 197/110 so Enalaprilat and Labetalol were administered with improvement in BP and rapid improvement of symptoms. MRI was ordered and it showed gliotic and encephalomalacia changes in multiple areas consistent with sequelae of chronic infarcts. Problem list and plan: 1. Hypertensive encephalopathy: Patient has symptoms suggesting hypertensive encephalopathy (headaches, nausea, vomiting, AMS, BP up to 210/110mmHg) that resolved as soon as her BP was lowered. Other differentials were excluded as imaging didn't show any bledding or new infarcts, nor did her history suggest any other etiology. Patient has HTN resistant to medication, so she went from taking Labetalol 100mg BID to 200mg BID. She is also using lasix 80mg daily and hydralazine 25mg BID (which was switched recently from Amlodipine), but her BP is still increasing. Her nephew should be contacted to ask about patient's compliance with medications and dialysis. Cardiology suggested increasing hydralazine to 25mg 3 times daily if the labetalol wasn't controlling her HTN ( Dr. Dotson suggested the same). 2. ESRD on peritoneal dialysis: Dr. Dotson suggested dialysing 4 times a day, the same way she used to do it at home. The first drain fluid was collected and peritonitis was ruled out. 3. HFpEF: Her condition seems stable. Echocardiogram showed preserved EF and trace mitral & tricuspid regurgitation. Cardiology also suggested a repeat imaging stress test as an outpatient and for blood work to be done to check her Mg, HgA1c and fasting lipid panel. 4. Hypothyroidism: Patient's TSH is 22.8 with a free T4 of 1.23. Dr. Bahena suggested that thyroid Abs (including antithyroglobulin and antithyroid peroxidase) should be checked and that a thyroid US should also be performed to see the size and shape of the gland. Furthermore, levothyroxine 50 mcg once a day should be started. 5. Chronic infarcts: This morning, the patient complained of numbness and either incoordination or weakness of the right hand and a possible change in vision. The nurse stated that she noted some transient speech difficulty as well in the morning. Neurology consult was placed and examination was WNL, so a TIA is suspected, as repeated CT didn't show any acute changes. Patient's MRI from yesterday did show several chronic infarcts whose etiologies are unknown, so an embolic disease is being questioned. As patient has a history of HLD, and HTN, carotid artery stenosis is possible and it could explain this morning's episode, the weakness, numbness, garbled speech, the sudden vision problems in her eyes and the dizziness. Neurologist's recommendation is to start Lipitor and to obtain a carotid US & a non-enhanced MRA of the head. Antiplatelet agents and anticoagulants are going to be held as hemorrhagic transformation of her multiple ischemic strokes can't be entirely ruled out. 6. Other chronic conditions: Continue home medications.
[2018-01-02 22:59] VITALS: BP 118/60
--- NOTE | 2018-01-02 23:21 | ULTRASOUND REPORT ---
EXAMINATION: US DUPLEX CAROTID AND VERTEBRAL CLINICAL INFORMATION: Tingling, headache and vomiting. COMPARISON: None TECHNIQUE: Real-time ultrasound and Doppler techniques (integrating B-mode 2D vascular images, Doppler spectral analysis and color flow Doppler imaging) were utilized to interrogate the extracranial carotid and vertebral arteries bilaterally. The degree of stenosis determined by criteria similar to NASCET. FINDINGS: RIGHT VESSELS - There is normal antegrade flow within the carotid and vertebral arteries. No atherosclerotic plaque is identified. Doppler derived peak systolic velocity measurements (cm/sec) were as follows: Distal CCA: 54 ICA: 67 (with end diastolic of 21) ECA: 160 Vertebral: 64 ICA/CCA ratio is 1.24 LEFT VESSELS - There is normal antegrade flow within the carotid and vertebral arteries. Mild atherosclerotic plaque of the carotid bulb. Doppler derived peak systolic velocity measurements (cm/sec) were as follows: Distal CCA: 99 ICA: 114 (with end diastolic of 35) ECA: 166 Vertebral: 71 ICA/CCA ratio is 1.15 IMPRESSION: Mild atherosclerotic plaque of the left carotid bulb produces < 50% stenosis of the proximal ICA. No hemodynamically significant carotid artery stenosis.
[2018-01-03] VITALS: BP 120/68
[2018-01-03 06:46] VITALS: BP 126/60
--- NOTE | 2018-01-03 06:59 | PN- Housestaff ---
Rl SHARP,Ami 01/03/18 0658: Subjective Follow-up For: HYPERTENSIVE ENCEPHALOPATHY Complaints: no complaints Tele-Events Since Last Visit: NSR- 80s Subjective: Patient seen and examined at bedside. Patient had an episode of numbness right hand lasting for few minutes. Full neuro examination was normal then. Patient denies any numbness, tingling sensation, chest pain, palpitations. Review of Systems Constitutional: Reports: no symptoms. Objective Last 24 Hrs of Vital Signs/I&O Vital Signs Date Time Temp Pulse Resp B/P B/P Pulse O2 O2 Flow FiO2 Mean Ox Delivery Rate 01/03 0646 98.3 76 20 126/60 95 Room Air 01/03 0000 120/68 01/02 2259 98.6 76 16 118/60 94 Room Air 01/02 2100 76 118/62 01/02 2100 76 118/62 01/02 2100 76 118/62 01/02 1400 97.8 79 20 156/70 96 Intake & Output 01/03 1600 01/03 0800 01/03 0000 Intake Total Output Total 1900 600 Balance -1900 -600 Output, 1800 400 Dialysate Output, Urine 100 200 Patient 208 lb Weight Physical Exam General Appearance: Alert, Oriented X3, Cooperative, No Acute Distress Cardiovascular: Regular Rate, Normal S1, Normal S2, No Murmurs Lungs: Clear to Auscultation Abdomen: Soft, No Tenderness, No Hepatospenomegaly Neurological: Normal Speech, Strength at 5/5 X4 Ext, Normal Tone, Sensation Intact Extremities: No Cyanosis, No Edema, Normal Pulses Current Medications: Current Medications Sig/Rich Start time Last Medication Dose Route Stop Time Status Admin Aspirin 81 MG DAILY 01/01 09 AC 01/03 PO 0845 Atorvastatin Calcium 10 MG 1700 01/01 1700 AC 01/02 PO 1708 Calcium Acetate 667 MG WM 01/01 1200 AC 01/03 PO 0845 Clopidogrel Bisulfate 75 MG DAILY 01/02 1430 CAN PO Erythromycin 1 LEXY ONCE PRN 01/03 06 AC OPH Furosemide 80 MG DAILY 01/01 0900 AC 01/03 PO 0845 Heparin Sodium 5,000 UNIT Q8 12/31 2200 AC 01/03 (Porcine) SC 0652 Hydralazine HCl 25 MG BID 01/01 09 AC 01/02 PO 0808 Labetalol HCl 200 MG BID 01/02 2100 AC PO Labetalol HCl 200 MG Q8 01/01 1400 DC 01/02 PO 0620 Levothyroxine Sodium 0.05 MG DAILY AC 01/02 0845 AC 01/03 PO 0652 Lisinopril 20 MG BID 01/01 0900 AC 01/02 PO 0808 Omeprazole 40 MG DAILY AC PRN 12/31 2100 AC PO Sevelamer Carbonate 800 MG WM 12/31 2100 AC 01/03 PO 0845 Last 24 Hrs of Lab/Carlos Results Last 24 Hrs of Labs/Mics: Laboratory Tests 01/03/18 0750: TSH Cancelled, Free T4 Cancelled 01/03/18 0623: Sodium Pending, Potassium Pending, Chloride Pending, Carbon Dioxide Pending, Anion Gap Pending, BUN Pending, Creatinine Pending, BUN/Creatinine Ratio Pending , Magnesium Pending, TSH Pending, Free T4 Pending Assessment/Plan Assessment: 67-year-old female with past medical history of hypertension, stroke, hyperlipidemia, migraine headache, GERD, heart failure with preserved ejection fraction, CKD on peritoneal dialysis [ Rapidly proliferative glomerulonephritis, pauciimmune], came with complaints of dizziness and vomiting. assessment and plan: 1. Hypertensive encephalopathy Patient admitted for hypertensive encephalopathy. Her blood pressure is controlled with Lasix, labetalol 200 twice a day, lisinopril, hydralazine 25. We maintained to decrease her blood pressure not more than 20% in view of potential stroke. Patient had few episodes of borderline blood pressure 100/70. Her blood pressure medications was adjusted accordingly. During the hospital course patient had 2 episodes of numbness and tingling of the right hand with word finding difficulty. In view of the high suspicion for TIA start CAT scan of the head was done which was negative. She was seen by neurologist who suggested to continue the current management and decided not to use aspirin/ Plavix given that she had previous hemorrhagic stroke. Patient also had ultrasound of her neck and MRA head which was negative. 2. End-stage renal disease on peritoneal dialysis-patient initially came in with nausea and abdominal pain and hence there was a doubt about peritonitis but this was ruled out given her cell count was 10. Nephrology on board who suggested to continue the current home dose of paternal diet peritoneal dialysis 4 times a day. 3. Stroke-patient had stroke in 2015. Follows Dr. Cline at [facility]. Patient will follow Dr. Sari as outpatient. 4. HFpEF-stable. Cardiology on board patient might need outpatient stress test. We will continue all her home medications. 5. Patient was seen by physical therapy who suggested home PT. We will send her home with the current blood pressure medications, with follow- up with cardiology, nephrology, neurology. Update-at around 2 PM today patient had an episode of weakness and shaking and eventually had a fall with no loss of consciousness or head injury. Patient was completely oriented throughout the whole episode. She is alert, oriented 3. Stat vitals-blood pressure 120/50, heart rate 77, random blood sugar 136. Troponin 0.05. Pending prolactin, EKG showed T-wave inversion in lead 1.Her episode of fall can be due to gait instability, orthostatic hypotension, seizures. We will get cardiology follow-up and monitor her for 1 more day. Problem List: 1. Hypertensive encephalopathy Pain Ratin Pain Location: NONE Pain Goal: Remain pain free Pain Plan: TYLENOL Tomorrow's Labs & Rationales: NONE Janiya SHARP,Donna 01/03/18 0956: Attending MD Review Statement Attending Statement Attending MD Statement: examined this patient, discuss w/resident/PA/POLE INSPECTOR, agreed w/resident/PA/POLE INSPECTOR, reviewed EMR data (avail), discussed with nursing, discussed with case mgmt, reviewed images Attending Assessment/Plan: Events yesterday noted. Pt had multiple episodes of arm tingling, nausea. Each episode was brief, no speech disturbances, no motor weakness and resolved spontaneously. We had a long talk with the patient and the neurologist. Patient has had intracranial hemorrhage from amyloid angiopathy and even her most recent MRI on this admission shows chronic hemorrhages. Given that, the risks of an antiplatelet agent and the risks of bleeding outweigh the benefits. Her ultrasound is negative for any carotid occlusion and she had MRA which is negative for any obvious cause of cerebral ischemia. At this point we are going to continue her antihypertensive regimen exactly the way is at home with the labetalol, lisinopril, hydralazine and Lasix but will carefully stagger the medications. The patient is keen on going home today. We'll set her up with visiting nurse service and home PT. If her pressure stays stable today and she has no more episodes than she can likely be discharged later today with outpatient follow-up. She has underlying microscopic polyangiitis with glomerulonephritis from the same and is on peritoneal dialysis. She also has labile hypertension and came in with a hypertensive emergency.
--- NOTE | 2018-01-03 07:42 | PN- Diabetes ---
Assessment/Plan Diabetes Assessment: The patient feels a little better. Her blood pressure is under better control. The patient was begun on levothyroxine 50 mcg daily. Her thyroid antibodies which were done yesterday are negative. Thyroid ultrasound was not done. Plan: Suggest repeat the patient's free T4 and TSH today. Drugs like Savella and calcium can interfere with the absorption of thyroid hormone. She needs to take her thyroid pills first thing in the morning on empty stomach and out from her other pills by at least 1 hour. Subjective Subjective: Feels okay Review of Systems Constitutional: Denies: chills, fever. Cardiovascular: Reports: no symptoms. Respiratory: Denies: short of breath. Gastrointestinal: Denies: nausea, vomiting. Skin: Reports: no symptoms. Objective Last 24 Hrs of Vital Signs/I&O Vital Signs Date Time Temp Pulse Resp B/P B/P Pulse O2 O2 Flow FiO2 Mean Ox Delivery Rate 01/03 0646 98.3 76 20 126/60 95 Room Air 01/03 0000 120/68 01/02 2259 98.6 76 16 118/60 94 Room Air 01/02 2100 76 118/62 01/02 2100 76 118/62 01/02 2100 76 118/62 01/02 1400 97.8 79 20 156/70 96 01/02 0808 54 150/60 01/02 0808 54 150/60 Intake & Output 01/03 0800 01/03 0000 01/02 1600 Intake Total 510 Output Total 9358 335 8644 Balance -1900 -600 -1040 Intake, IV 10 Intake, Oral 500 Output, 1800 400 900 Dialysate Output, Urine 100 200 650 Patient 208 lb Weight Vital Signs Date Time Temp Pulse Resp B/P B/P Pulse O2 O2 Flow FiO2 Mean Ox Delivery Rate 01/03 0646 98.3 76 20 126/60 95 Room Air 01/03 0000 120/68 01/02 2259 98.6 76 16 118/60 94 Room Air 01/02 2100 76 118/62 01/02 2100 76 118/62 01/02 2100 76 118/62 01/02 1400 97.8 79 20 156/70 96 01/02 0808 54 150/60 01/02 0808 54 150/60 Intake & Output 01/03 0800 01/03 0000 01/02 1600 Intake Total 510 Output Total 6637 706 1182 Balance -1900 -600 -1040 Intake, IV 10 Intake, Oral 500 Output, 1800 400 900 Dialysate Output, Urine 100 200 650 Patient 208 lb Weight Physical Exam General Appearance: alert, awake, comfortable Head: normal appearance Neck: normal inspection Respiratory: normal breath sounds Cardiovascular: regular rate/rhythm Extremities: normal inspection Current Medications: Current Medications Sig/Rich Start time Last Medication Dose Route Stop Time Status Admin Aspirin 81 MG DAILY 01/01 0900 AC 01/01 PO 0823 Atorvastatin Calcium 10 MG 1700 01/01 1700 AC 01/02 PO 1708 Calcium Acetate 667 MG WM 01/01 1200 AC 01/02 PO 1708 Clopidogrel Bisulfate 75 MG DAILY 01/02 1430 CAN PO Erythromycin 1 LEXY ONCE PRN 01/03 0600 AC OPH Furosemide 80 MG DAILY 01/01 0900 AC 01/02 PO 0807 Heparin Sodium 5,000 UNIT Q8 12/31 2200 AC 01/03 (Porcine) SC 0652 Hydralazine HCl 25 MG BID 01/01 0900 AC 01/02 PO 0808 Labetalol HCl 200 MG BID 01/02 2100 AC PO Labetalol HCl 200 MG Q8 01/01 1400 DC 01/02 PO 0620 Levothyroxine Sodium 0.05 MG DAILY AC 01/02 0845 AC 01/03 PO 0652 Lisinopril 20 MG BID 01/01 0900 AC 01/02 PO 0808 Omeprazole 40 MG DAILY AC PRN 12/31 2100 AC PO Ondansetron HCl 4 MG ONCE ONE 01/02 0830 DC 01/02 IV 01/02 0831 0841 Sevelamer Carbonate 800 MG WM 12/31 2100 AC 01/02 PO 1708 Findings Pertinent Lab/Carlos Results: Laboratory Tests 01/03 01/02 01/01 0623 0605 1230 Chemistry Sodium (137 - 145 mmol/L) Pending 137 137 Potassium (3.5 - 5.1 mmol/L) Pending 4.5 4.4 Chloride (98 - 107 mmol/L) Pending 101 102 Carbon Dioxide (22 - 30 mmol/L) Pending 26 22 Anion Gap (5 - 16) Pending 10 13 BUN (7 - 17 mg/dL) Pending 56 H 61 H Creatinine (0.5 - 1.0 mg/dL) Pending 9.7 *H 9.9 *H Estimated GFR (>60 ml/min) 4 L 4 L BUN/Creatinine Ratio (7 - 25 %) Pending 5.8 L 6.2 L Hemoglobin A1c (4.2 - 5.8 %) 4.8 Magnesium Pending Triglycerides (<150 mg/dL) 89 Cholesterol (<200 MG/DL) 122 LDL Cholesterol, Calc (65 - 129 mg/dL) 71 HDL Cholesterol (40 - 60 mg/dL) 34 L Cholesterol/HDL Ratio (0.00 - 4.23 %) 4 TSH (0.270 - 4.200 uIU/mL) 22.800 H Free T4 (0.78 - 2.44 ng/dL) 1.23 Immunology Thyroglobulin Antibody (< 61 U/mL) < 15 Thyroid Peroxidase Ab (< 61 U/mL) < 28
--- NOTE | 2018-01-03 08:31 | ECHOCARDIOGRAM REPORT ---
ALE MCDERMOTT Age: 67 : 1950 Gender: F Exam Date: 01/02/2018 10:55 Exam Location: [address] Ht (in): 64 Wt (lb): 214 BSA: 2.14 BP: 168 / 70 Ordering Physician: Ami Shine MD Referring Physician: Ami Shine MD Technologist: Brodie Menezes [facility] Room Number: 171-1 Indications: LIGHTHEADEDNESS Rhythm: Sinus Technical Quality: good FINDINGS Left Ventricle Normal left ventricular size, wall thickness and systolic function with no obvious regional wall motion abnormalities. Normal left ventricular diastolic filling pattern for age. The ejection fraction is visually estimated at 55%. Right Ventricle The right ventricle is normal in size and function. Right Atrium The right atrium is normal in size. Left Atrium The left atrium is normal in size. The interatrial septum is intact. Mitral Valve The mitral valve demonstrates mild annular calcification with normal function. There is trace mitral regurgitation. Aortic Valve Structurally normal aortic valve without significant sclerosis or stenosis. There is no aortic regurgitation. Tricuspid Valve The tricuspid valve is normal in structure and function. There is trace tricuspid regurgitation. Pulmonary artery systolic pressure is normal. Pulmonic Valve Structurally normal pulmonic valve. There is no pulmonic regurgitation. Pericardium Normal pericardium without effusion. No pleural effusion. Great Vessels Normal aortic root dimension. The aortic arch and great vessels are well seen and are normal. CONCLUSIONS 1. Normal EF of 55%. 2. Trace mitral regurgitation. 3. Trace tricuspid regurgitation. Pankaj Lawrence M.D. (Electronically Signed) Final Date: 03 January 2018 08:31 MEASUREMENTS (Male / Female) Normal Values 2D ECHO LV Diastolic Diameter PLAX 5.6 cm 4.2 - 5.9 / 3.9 - 5.3 cm LV Systolic Diameter PLAX 4.0 cm 2.1 - 4.0 cm LV Fractional Shortening PLAX 28.6 % 25 - 46 % LV Ejection Fraction 2D Teich 54.4 % IVS Diastolic Thickness 1.2 cm LVPW Diastolic Thickness 1.1 cm LV Relative Wall Thickness 0.4 LVOT Diameter 2.0 cm Aortic Root Diameter 2.7 cm LA Systolic Diameter LX 3.6 cm 3.0 - 4.0 / 2.7 - 3.8 cm LA Volume 65.0 cm 18 - 58 / 22 - 52 cm Ascending Aorta Diameter 3.1 cm DOPPLER AV Peak Velocity 153.0 cm/s AV Peak Gradient 9.4 mmHg AV Mean Velocity 107.0 cm/s AV Mean Gradient 5.0 mmHg AV Velocity Time Integral 41.0 cm LVOT Peak Velocity 111.0 cm/s LVOT Peak Gradient 4.9 mmHg LVOT Mean Velocity 70.5 cm/s LVOT Mean Gradient 2.0 mmHg LVOT Velocity Time Integral 30.7 cm LVOT Stroke Volume 96.4 cm AV Area Cont Eq vti 2.4 cm AV Area Cont Eq pk 2.3 cm MV Peak Velocity 124.0 cm/s MV Peak Gradient 6.2 mmHg MV Mean Velocity 84.0 cm/s MV Mean Gradient 3.0 mmHg Mitral E Point Velocity 102.0 cm/s Mitral A Point Velocity 127.0 cm/s Mitral E to A Ratio 0.8 MV PHT Velocity 135.0 cm/s MV Deceleration [place] 304.0 cm/s MV Pressure Half Time 133.2 ms MV Area PHT 1.7 cm MV Deceleration Time 461.0 ms TR Peak Velocity 269.0 cm/s TR Peak Gradient 28.9 mmHg Right Atrial Pressure 5.0 mmHg Pulmonary Artery Systolic Pressu 33.9 mmHg Right Ventricular Systolic Press 33.9 mmHg PV Peak Velocity 127.0 cm/s PV Peak Gradient 6.5 mmHg PV Mean Velocity 79.8 cm/s PV Mean Gradient 3.0 mmHg PV Velocity Time Integral 30.2 cm LV E' Lateral Velocity 4.9 cm/s Mitral E to LV E' Lateral Ratio 20.9 LV E' Septal Velocity 5.0 cm/s Mitral E to LV E' Septal Ratio 20.5
--- NOTE | 2018-01-03 08:43 | MRI REPORT ---
EXAMINATION: MRA HEAD CLINICAL INFORMATION: TIA. Tingling. COMPARISON: Head CT 01/02/2018. TECHNIQUE: MRA of the head was performed without intravenous contrast using [id number] technique. FINDINGS: There are atheromatous changes at the bilateral carotid siphons without significant stenosis of the intracranial internal carotid arteries. The proximal MCA and ACAs are patent. The visualized intradural vertebral arteries and basilar artery are patent. The proximal film loader are patent. The posterior communicating arteries are not well seen. There is no proximal vessel occlusion or intracranial aneurysm. Review of the source images demonstrates encephalomalacia in the high right frontal lobe an additional encephalomalacia in the right occipital pole. There are bilateral mastoid effusions. IMPRESSION: - No proximal vessel occlusion or significant stenosis within the proximal intracranial circulation. If there is concern for acute ischemia consider brain MRI for further evaluation. - Redemonstration of encephalomalacic changes in the right frontal lobe and right occipital lobe.
--- NOTE | 2018-01-03 10:00 | PN- Student ---
Subjective Subjective: No acute events overnight. Patient states that she is feeling better and is ready to go home. Objective Objective: Vital Signs Date Time Temp Pulse Resp B/P B/P Pulse O2 O2 Flow FiO2 Mean Ox Delivery Rate 01/03 0646 98.3 76 20 126/60 95 Room Air 01/03 0000 120/68 01/02 2259 98.6 76 16 118/60 94 Room Air 01/02 2100 76 118/62 01/02 2100 76 118/62 01/02 2100 76 118/62 01/02 1400 97.8 79 20 156/70 96 ED Intake and Output 01/03 0000 01/02 1200 Intake Total 510 Output Total 2150 500 Balance -1640 -500 Intake, IV 10 Intake, Oral 500 Output, 1300 300 Dialysate Output, Urine 850 200 Patient 208 lb 207 lb Weight Laboratory Tests 01/03 01/03 0750 0623 Chemistry Sodium (137 - 145 mmol/L) 134 L Potassium (3.5 - 5.1 mmol/L) 3.8 Chloride (98 - 107 mmol/L) 99 Carbon Dioxide (22 - 30 mmol/L) 26 Anion Gap (5 - 16) 9 BUN (7 - 17 mg/dL) 53 H Creatinine (0.5 - 1.0 mg/dL) 9.1 *H Estimated GFR (>60 ml/min) 4 L BUN/Creatinine Ratio (7 - 25 %) 5.8 L Magnesium (1.6 - 2.3 mg/dL) 1.6 TSH (0.270 - 4.200 uIU/mL) Cancelled Pending Free T4 (0.78 - 2.44 ng/dL) Cancelled 1.22 PE: Patient is an amiable lady, alert, oriented x3 and in no acute distress. Skin looks dry, but normal for ethnicity. Normal S1 & S2 were heard with no additional murmurs or gallops. On lung auscultation vesicular sounds were heard. Abdomen was soft and nontender, with no rebound or guarding and normal bowel sounds were heard. Peritoneal catheter was seen and no tumor, dolor, calor or rubor was noted. Neck was supple, no JVD was seen and no thyromegaly was noted when asked to swallow. Lower extremities had trace BL edema up to her knees. On neurological exam, CN III-XII were normal, and so was the strenght in her 4 extremities (5/5). Results Results: Laboratory Tests 01/03/18 0750: TSH Cancelled, Free T4 Cancelled 01/03/18 0623: Anion Gap 9, Estimated GFR 4 L, BUN/Creatinine Ratio 5.8 L, Magnesium 1.6, TSH Pending, Free T4 1.22 01/02/18 0605: Anion Gap 10, Estimated GFR 4 L, BUN/Creatinine Ratio 5.8 L, Hemoglobin A1c 4.8, Triglycerides 89, Cholesterol 122, LDL Cholesterol, Calc 71, HDL Cholesterol 34 L, Cholesterol/HDL Ratio 4, Thyroglobulin Antibody < 15, Thyroid Peroxidase Ab < 28 01/01/18 1230: Anion Gap 13, Estimated GFR 4 L, BUN/Creatinine Ratio 6.2 L, TSH 22.800 H, Free T4 1.23 01/01/18 0325: Phosphorus 5.7 H, Troponin I 0.05 12/31/17 2135: Troponin I 0.05 12/31/17 2038: Lymphocytes 31, % Normal PMNs 4, Misc Hematology Test , Fluid WBC 10 H, Fld Total RBCs Counted 7 H 12/31/17 1130: Urine Color YEL, Urine Clarity HAZY H, Urine pH 7.5, Ur Specific [place] 1.020, Urine Protein 100 H, Urine Ketones NEG, Urine Nitrite NEG, Urine Bilirubin NEG, Urine Urobilinogen 0.2, Ur Leukocyte Esterase TRACE H, Ur Microscopic SEDIMENT EXAMINED, Urine RBC 3-5, Urine WBC 15-25 H, Ur Epithelial Cells FEW, Urine Hemoglobin MOD H, Urine Glucose 100 H 12/31/17 1030: Anion Gap 17 H, Estimated GFR 4 L, BUN/Creatinine Ratio 6.8 L, Glucose 122 H , Calcium 9.0, Total Bilirubin 0.7, AST 16, ALT 22, Alkaline Phosphatase 92, Troponin I 0.04, Total Protein 5.5 L, Albumin 3.2 L, Globulin 2.3, Albumin/ Globulin Ratio 1.4, Lipase 61, PT 10.8, INR 0.99, CBC w Diff NO MAN DIFF REQ, RBC 3.95 L, MCV 90.8, MCH 30.0, MCHC 33.0, RDW 13.7, MPV 9.5, Gran % 75.6 H, Lymphocytes % 18.3 L, Monocytes % 4.5, Eosinophils % 1.3, Basophils % 0.3, Absolute Granulocytes 5.6, Absolute Lymphocytes 1.4, Absolute Monocytes 0.3, Absolute Eosinophils 0.1, Absolute Basophils 0 Microbiology 12/31 1901 BODY FLUID: Body Fluid Culture - CAN Cancelled: SPECIMEN NOT RECEIVED IN LABORATORY 12/31 1901 BODY FLUID: Gram Stain - CAN Cancelled: SPECIMEN NOT RECEIVED IN LABORATORY 12/31 1130 URINE ROUT: Urine Culture - COMP PROTEUS MIRABILIS Imaging: Head MRI/Neck MRA: IMPRESSION: - No proximal vessel occlusion or significant stenosis within the proximal intracranial circulation. If there is concern for acute ischemia consider brain MRI for further evaluation. - Redemonstration of encephalomalacic changes in the right frontal lobe and right occipital lobe. Assessment/Plan Assessment: Ms. 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 On arrival, her BP was 197/110 so Enalaprilat and Labetalol were administered with improvement in BP and rapid improvement of symptoms. MRI was ordered and it showed gliotic and encephalomalacia changes in multiple areas consistent with sequelae of chronic infarcts. Patient is being discharged today. Problem list and plan: 1. Hypertensive encephalopathy: Patient has symptoms suggesting hypertensive encephalopathy (headaches, nausea, vomiting, AMS, BP up to 210/110mmHg) that resolved as soon as her BP was lowered. Other differentials were excluded as imaging didn't show any bledding or new infarcts, nor did her history suggest any other etiology. Patient is presenting with hypotension in the mornings. Medications will be spread out in order to prevent further hypotensive episodes. Current BP regimen include: lasix 80mg daily, hydralazine 25mg BID, lisinopril 20mg BID. Patient should follow up with PCP to assess the future efficacy of the HTN meds. 2. ESRD on peritoneal dialysis: Dr. Dotson suggested continuation of her regular home dialysis regimen. The first drain fluid was collected and peritonitis was ruled out. Patient's status is stable at the moment, with creatinine slowly decreasing. Patient should follow up with Dr. Dotson. 3. HFpEF: Her condition seems stable. Echocardiogram showed preserved EF and trace mitral & tricuspid regurgitation. Cardiology also suggested a repeat imaging stress test as an outpatient. Patient should follow up with her business objects developer. 4. Hypothyroidism: Patient's TSH is 22.8 with a free T4 of 1.23. Antithyroglobulin and antithyroid peroxidase Abs were negative. A thyroid US should be performed as an outpatient to see the size and shape of the gland. Furthermore, levothyroxine 50 mcg once a day has been started. Patient should follow up with an procedure manager. 5. Chronic infarcts: Yesterday, the patient complained of numbness and either incoordination or weakness of the right hand and a possible change in vision. The nurse stated that she noted some transient speech difficulty as well in the morning. Neurology consult was placed and examination was WNL, so a TIA was suspected, as repeated CT didn't show any acute changes. Head MRI/Neck MRA didn' t show proximal vessel occlusion or significant stenosis. As patient has a history of small vessel vasculitis, the question arising now is if it is affecting her cerebral arteries and contributing to her current presentation. It could present with nerve problems (numbness, weakness, pain) which is what she complained of yesterday morning. It would't explain her dizziness. Patient should follow up with her PCP and a neurologist. Antiplatelet agents and anticoagulants are going to be held as hemorrhagic transformation of her multiple ischemic strokes can't be entirely ruled out. 6. Other chronic conditions: Continue home medications. anticoagulants are going to be held as hemorrhagic transformation of her multiple ischemic strokes can't be entirely ruled out. 6. Other chronic conditions: Continue home medications.
--- NOTE | 2018-01-03 11:18 | PN- Nephrology ---
Assessment/Plan Nephrology Assessment: ESRD - Has been resistant to further reductions in dry weight despite mild LE edema. Unable to come to any logical conclusion with current system of bed weights. I's/O's not recorded. Anectdotally, trace b/l LE edema appears the same. BP is better but not clear to me that this is from more aggressive UF. I think it'd be reasonable to continue the same script. HTN - ?Improved BP from compliance. Certain meds being held. I think it'd be reasonable to discharge her on the current active regimen although I would be careful with holding her labetalol on discharge given how elevated her BP had been. Anemia - Hg above goal - no need for YSABEL here. Suggestion: -Cont current PD script -Cont current regimen - will need to closely monitor BP at home and likely will need to add back labetalol -Hold off on YSABEL Please call [phone] with ?'s Subjective Subjective: Pt seen and examined on PD c/o second episode of hand tingling/numbness Repeat Head CT neg Head/Neck MRA neg Carotid US neg for significant stenosis BP 110's-120's/60's; HR 70's - noted to drop BP to 100/70 (not documented in VS sheet) - current BP regimen lasix 80mg daily, hydralazine 25mg BID, lisinopril 20mg BID Objective Vital Signs and I&Os Vital Signs Date Time Temp Pulse Resp B/P B/P Pulse O2 O2 Flow FiO2 Mean Ox Delivery Rate 01/03 1054 128/66 01/03 0646 98.3 76 20 126/60 95 Room Air 01/03 0000 120/68 01/02 2259 98.6 76 16 118/60 94 Room Air 01/02 2100 76 118/62 01/02 2100 76 118/62 01/02 2100 76 118/62 01/02 1400 97.8 79 20 156/70 96 Intake & Output 01/03 1600 01/03 0400 01/02 1600 01/02 0400 01/01 1600 01/01 0400 Intake Total 510 4460 Output Total 1300 1200 1850 450 500 350 Balance -1300 -1200 -1340 -450 3960 -350 Intake, 4000 Dialysate Intake, IV 10 Intake, Oral 500 460 Number 0 Bowel Movements Output, 1200 1000 1000 200 100 100 Dialysate Output, Urine 100 200 850 250 400 250 Patient 208 lb 207 lb 208 lb 214 lb Weight Weight Bed scale Bed scale Measurement Method Physical Exam: Gen - NAD HEENT - supple CV - RRR, no m/r/g Chest - clear, no w/r/r Abd - soft, NTND Ext - trace edema Neuro - AOX3, grossly nonfocal Current Medications: Current Medications Sig/Rich Start time Last Medication Dose Route Stop Time Status Admin Aspirin 81 MG DAILY 01/01 0900 AC 01/03 PO 0845 Atorvastatin Calcium 10 MG 1700 01/01 1700 AC 01/02 PO 1708 Calcium Acetate 667 MG WM 01/01 1200 AC 01/03 PO 0845 Clopidogrel Bisulfate 75 MG DAILY 01/02 1430 CAN PO Erythromycin 1 LEXY ONCE PRN 01/03 0600 AC OPH Furosemide 80 MG DAILY 01/01 0900 AC 01/03 PO 0845 Heparin Sodium 5,000 UNIT Q8 12/31 2200 AC 01/03 (Porcine) SC 0652 Hydralazine HCl 25 MG BID 01/01 0900 AC 01/03 PO 1054 Labetalol HCl 200 MG BID 01/02 2100 AC PO Labetalol HCl 200 MG Q8 01/01 1400 DC 01/02 PO 0620 Levothyroxine Sodium 0.05 MG DAILY AC 01/02 0845 AC 01/03 PO 0652 Lisinopril 20 MG BID 01/01 0900 AC 01/02 PO 0808 Omeprazole 40 MG DAILY AC PRN 12/31 2100 AC PO Sevelamer Carbonate 800 MG WM 12/31 2100 AC 01/03 PO 0845 Results Pertinent Lab Results: Laboratory Tests 01/03 01/03 01/02 01/01 0750 0623 0605 1230 Chemistry Sodium (137 - 145 mmol/L) 134 L 137 137 Potassium (3.5 - 5.1 mmol/L) 3.8 4.5 4.4 Chloride (98 - 107 mmol/L) 99 101 102 Carbon Dioxide (22 - 30 mmol/L) 26 26 22 Anion Gap (5 - 16) 9 10 13 BUN (7 - 17 mg/dL) 53 H 56 H 61 H Creatinine (0.5 - 1.0 mg/dL) 9.1 *H 9.7 *H 9.9 *H Estimated GFR (>60 ml/min) 4 L 4 L 4 L BUN/Creatinine Ratio (7 - 25 %) 5.8 L 5.8 L 6.2 L Hemoglobin A1c (4.2 - 5.8 %) 4.8 Magnesium (1.6 - 2.3 mg/dL) 1.6 Triglycerides (<150 mg/dL) 89 Cholesterol (<200 MG/DL) 122 LDL Cholesterol, Calc (65 - 129 mg/dL) 71 HDL Cholesterol (40 - 60 mg/dL) 34 L Cholesterol/HDL Ratio (0.00 - 4.23 %) 4 TSH (0.270 - 4.200 uIU/mL) Cancelled 16.000 H 22.800 H Free T4 (0.78 - 2.44 ng/dL) Cancelled 1.22 1.23 Immunology Thyroglobulin Antibody (< 61 U/mL) < 15 Thyroid Peroxidase Ab (< 61 U/mL) < 28 01/01 12/31 12/31 12/31 0325 2135 2038 1130 Chemistry Phosphorus (2.5 - 4.5 mg/dL) 5.7 H Troponin I (< 0.11 ng/ml) 0.05 0.05 Hematology Lymphocytes (%) 31 % Normal PMNs (%) 4 Misc Hematology Test (%) Other Body Source Fluid WBC (0 - 5 /CUMM) 10 H Fld Total RBCs Counted (0 /CUMM) 7 H Urines Urine Color (YEL,AMB,STR) YEL Urine Clarity (CLEAR) HAZY H Urine pH (5.0 - 8.0) 7.5 Ur Specific [place] (1.001 - 1.035) 1.020 Urine Protein (NEG,<30 MG/DL) 100 H Urine Ketones (NEG) NEG Urine Nitrite (NEG) NEG Urine Bilirubin (NEG) NEG Urine Urobilinogen (0.1 - 1.0 EU/dl) 0.2 Ur Leukocyte Esterase (NEG) TRACE H Ur Microscopic SEDIMENT EXAMINED Urine RBC (0 - 5 /HPF) 3-5 Urine WBC (0 - 2 /HPF) 15-25 H Ur Epithelial Cells (NONE,FEW) FEW Urine Hemoglobin (NEG) MOD H Urine Glucose (N MG/DL) 100 H Imaging/Other Studies: Head/Neck MRA IMPRESSION: - No proximal vessel occlusion or significant stenosis within the proximal intracranial circulation. If there is concern for acute ischemia consider brain MRI for further evaluation. - Redemonstration of encephalomalacic changes in the right frontal lobe and right occipital lobe. TTE CONCLUSIONS 1. Normal EF of 55%. 2. Trace mitral regurgitation. 3. Trace tricuspid regurgitation.
[2018-01-03] MEDS ORDERED: SYNTHROID50 MCG PO (13:12)
--- NOTE | 2018-01-03 14:08 | Event Note ---
Event Note Event Note: Situation Rapid response was called, patient felt dizzy upon standing up to go to the bathroom, take was in the room, take help the patient lowered herself to the floor. No loss of consciousness, seizures, stool or urine incontinence. Patient denied chest pain, palpitation or shortness of breath. Background 67-year-old female with past medical history of hypertension, stroke, hyperlipidemia, migraine headache, GERD, heart failure with preserved ejection fraction, CKD on peritoneal dialysis was admitted to telemetry floor for hypertensive encephalopathy. Patient today received peritoneal dialysis. Patient reportedly had multiple attacks of dizziness, numbness and tingling sensation 2 days. Negative workup including CAT scan head, MRI and MRA head and neck. Assessment Patient alert oriented 3, no prodormal symptoms were reported. Vital signs temperature 96.3, blood pressure 120/50, heart rate 77 regular, respiratory rate 20 saturating 92% on room air, blood sugar 136 Patient was lying on the floor on her right side, pillow was put in to support her head. She was lowered slowly to the floor, no fall, no head strike, no hip pain. Patient reported dizziness upon getting up to the bed which she did herself with support 2. Patient is not in acute distress and responding appropriately to questions Cardiovascular exam S1, S2 regular, no murmur Chest clear Abdomen soft bowel sounds positive Neuro exam sensory, motor, cranial nerves are intact Hip joint right side no tenderness and normal range of motion Recommendation Orthostatic measurement Hold off next blood pressure medication lisinopril Tropes and EKG Review the telemetry strip during the incident BEP in setting of peritoneal dialysis today Attending was informed We will continue to follow
[2018-01-03 14:15] VITALS: BP 120/50
[2018-01-03 14:16] VITALS: BP 134/70
--- NOTE | 2018-01-03 15:18 | PN- Neurology ---
Subjective Subjective: right upper extremity weakness Review of Systems: No further weakness right upper extremity No headache No difficulty with speech Objective Vital Signs and I&Os Vital Signs Date Time Temp Pulse Resp B/P B/P Pulse O2 O2 Flow FiO2 Mean Ox Delivery Rate 01/03 1416 98.3 74 20 134/70 98 Room Air 01/03 1415 97.8 68 20 120/50 96 Room Air 01/03 1237 120/62 01/03 1054 128/66 01/03 0646 98.3 76 20 126/60 95 Room Air 01/03 0000 120/68 01/02 2259 98.6 76 16 118/60 94 Room Air 01/02 2100 76 118/62 01/02 2100 76 118/62 01/02 2100 76 118/62 Intake & Output 01/03 1600 01/03 0800 01/03 0000 01/02 1600 01/02 0800 01/02 0000 Intake Total 400 510 Output Total 300 6485 221 8611 500 250 Balance 100 -1900 -600 -1040 -500 -250 Intake, IV 10 Intake, Oral 400 500 Output, 1800 400 900 300 Dialysate Output, Urine 300 100 200 650 200 250 Patient 208 lb 207 lb 208 lb Weight Weight Bed scale Measurement Method Extraocular movements full No facial weakness No dysarthria Normal tone and strength both upper extremities No sensory loss Current Medications: Current Medications Sig/Rich Start time Last Medication Dose Route Stop Time Status Admin Aspirin 81 MG DAILY 01/01 09 AC 01/03 PO 0845 Atorvastatin Calcium 10 MG 1700 01/01 1700 AC 01/02 PO 1708 Calcium Acetate 667 MG WM 01/01 1200 AC 01/03 PO 1236 Erythromycin 1 LEXY ONCE PRN 01/03 06 AC OPH Furosemide 80 MG DAILY 01/01 0900 AC 01/03 PO 0845 Heparin Sodium 5,000 UNIT Q8 12/31 2200 AC 01/03 (Porcine) SC 1437 Hydralazine HCl 25 MG BID 01/01 0900 AC 01/03 PO 1054 Labetalol HCl 200 MG BID 01/02 2100 AC 01/03 PO 1237 Levothyroxine Sodium 0.05 MG DAILY AC 01/02 0845 AC 01/03 PO 0652 Lisinopril 20 MG BID 01/01 09 AC 01/02 PO 0808 Magnesium Oxide 400 MG ONE ONE 01/03 1315 DC 01/03 PO 01/03 1316 1436 Omeprazole 40 MG DAILY AC PRN 12/31 2100 AC PO Sevelamer Carbonate 800 MG WM 12/31 2100 AC 01/03 PO 1236 Results Last 24 Hours of Lab Results: Laboratory Tests 01/03 01/03 01/03 01/03 1415 1410 1409 0750 Chemistry Sodium (137 - 145 mmol/L) 134 L Cancelled Potassium (3.5 - 5.1 mmol/L) 3.7 Cancelled Chloride (98 - 107 mmol/L) 98 Cancelled Carbon Dioxide (22 - 30 mmol/L) 24 Cancelled Anion Gap (5 - 16) 11 Cancelled BUN (7 - 17 mg/dL) 53 H Cancelled Creatinine (0.5 - 1.0 mg/dL) 8.7 *H Cancelled Estimated GFR (>60 ml/min) 5 L BUN/Creatinine Ratio (7 - 25 %) 6.1 L Cancelled Magnesium (1.6 - 2.3 mg/dL) 1.5 L Troponin I (< 0.11 ng/ml) 0.05 Cancelled TSH Cancelled Free T4 Cancelled Prolactin (3.0 - 18.6 ng/mL) Pending 01/03 06 Chemistry Sodium (137 - 145 mmol/L) 134 L Potassium (3.5 - 5.1 mmol/L) 3.8 Chloride (98 - 107 mmol/L) 99 Carbon Dioxide (22 - 30 mmol/L) 26 Anion Gap (5 - 16) 9 BUN (7 - 17 mg/dL) 53 H Creatinine (0.5 - 1.0 mg/dL) 9.1 *H Estimated GFR (>60 ml/min) 4 L BUN/Creatinine Ratio (7 - 25 %) 5.8 L Magnesium (1.6 - 2.3 mg/dL) 1.6 TSH (0.270 - 4.200 uIU/mL) 16.000 H Free T4 (0.78 - 2.44 ng/dL) 1.22 Recent Imaging Studies: MRA brain MPRESSION: - No proximal vessel occlusion or significant stenosis within the proximal intracranial circulation. If there is concern for acute ischemia consider brain MRI for further evaluation. - Redemonstration of encephalomalacic changes in the right frontal lobe and right occipital lobe. Assessment/Plan Assessment: Transient right-sided weakness MRA scan brain did not show any intracranial stenosis Previous MRI did not show any acute stroke Patient had a gentle fall today while walking with walker and a nurse at her side No loss of consciousness Patient felt a generalized weakness Plan: Long-term aspirin to be reviewed by her treating neurologist at [facility] due to history of microbleed's Check for orthostatic blood pressure change
--- NOTE | 2018-01-03 16:22 | PN- Cardiology ---
Subjective Subjective: A "rapid response" was called for Ms. Hinojosa today after she had gotten up to go to the bathroom and while ambulating with a walker ~1:30 p.m.. She became weak and her "legs gave out" and was eased to the floor without any loss of consciousness, incontinence, or significant trauma. She did admit to some associated bilateral upper and lower extremity "shakiness". Objective Vital Signs and I&Os Vital Signs Date Time Temp Pulse Resp B/P B/P Pulse O2 O2 Flow FiO2 Mean Ox Delivery Rate 01/03 1416 98.3 74 20 134/70 98 Room Air 01/03 1415 97.8 68 20 120/50 96 Room Air 01/03 1237 120/62 01/03 1054 128/66 01/03 0646 98.3 76 20 126/60 95 Room Air 01/03 0000 120/68 01/02 2259 98.6 76 16 118/60 94 Room Air 01/02 2100 76 118/62 01/02 2100 76 118/62 01/02 2100 76 118/62 Intake & Output 01/03 1600 01/03 0800 01/03 0000 01/02 1600 01/02 0800 01/02 0000 Intake Total 400 510 Output Total 300 6118 616 7021 500 250 Balance 100 -1900 -600 -1040 -500 -250 Intake, IV 10 Intake, Oral 400 500 Output, 1800 400 900 300 Dialysate Output, Urine 300 100 200 650 200 250 Patient 208 lb 207 lb 208 lb Weight Weight Bed scale Measurement Method Physical Exam: Well developed, obese elderly female in no acute distress. HEENT: Normocephalic, atraumatic, EOMI, moist mucous membranes. Neck: No JVD, no bruits. Lungs: Clear to auscultation bilaterally. Heart: S1, S2 grade 1-2/6 systolic murmur. No gallop or rub. PMI not well felt. Abdomen: Soft, nontender, positive bowel sounds. Extremities: No edema. Current Medications: Current Medications Sig/Rich Start time Last Medication Dose Route Stop Time Status Admin Aspirin 81 MG DAILY 01/01 0900 AC 01/03 PO 0845 Atorvastatin Calcium 10 MG 1700 01/01 1700 AC 01/03 PO 1605 Calcium Acetate 667 MG WM 01/01 1200 AC 01/03 PO 1606 Erythromycin 1 LEXY ONCE PRN 01/03 0600 AC OPH Furosemide 80 MG DAILY 01/01 0900 AC 01/03 PO 0845 Heparin Sodium 5,000 UNIT Q8 12/31 2200 AC 01/03 (Porcine) SC 1437 Hydralazine HCl 25 MG BID 01/01 0900 AC 01/03 PO 1054 Labetalol HCl 200 MG BID 01/02 2100 AC 01/03 PO 1237 Levothyroxine Sodium 0.05 MG DAILY AC 01/02 0845 AC 01/03 PO 0652 Lisinopril 20 MG BID 01/01 0900 AC 01/02 PO 0808 Magnesium Oxide 400 MG ONE ONE 01/03 1315 DC 01/03 PO 01/03 1316 1436 Magnesium Sulfate 1 GM ONCE ONE 01/03 1530 AC 01/03 Dextrose/Water 100 ML IV 01/03 1929 1606 Omeprazole 40 MG DAILY AC PRN 12/31 2100 AC PO Sevelamer Carbonate 800 MG WM 12/31 2100 AC 01/03 PO 1606 Results Last 48 Hrs of Labs/Mics: Laboratory Tests 01/03/18 1415: Anion Gap 11, Estimated GFR 5 L, BUN/Creatinine Ratio 6.1 L, Magnesium 1.5 L, Troponin I 0.05, Prolactin 26.7 H 01/03/18 1410: Sodium Cancelled, Potassium Cancelled, Chloride Cancelled, Carbon Dioxide Cancelled, Anion Gap Cancelled, BUN Cancelled, Creatinine Cancelled, BUN/ Creatinine Ratio Cancelled 01/03/18 1409: Troponin I Cancelled 01/03/18 0750: TSH Cancelled, Free T4 Cancelled 01/03/18 0623: Anion Gap 9, Estimated GFR 4 L, BUN/Creatinine Ratio 5.8 L, Magnesium 1.6, TSH 16.000 H, Free T4 1.22 01/02/18 0605: Anion Gap 10, Estimated GFR 4 L, BUN/Creatinine Ratio 5.8 L, Hemoglobin A1c 4.8, Triglycerides 89, Cholesterol 122, LDL Cholesterol, Calc 71, HDL Cholesterol 34 L, Cholesterol/HDL Ratio 4, Thyroglobulin Antibody < 15, Thyroid Peroxidase Ab < 28 Recent Imaging Studies: Echocardiogram 01/01/2018: 1. Normal EF of 55%. 2. Trace mitral regurgitation. 3. Trace tricuspid regurgitation. Carotid ultrasound 01/02/2018: 1. Mild atherosclerotic plaque of the left carotid bulb produces <50% stenosis of the proximal ICA. 2. No hemodynamically significant carotid artery stenosis. Head CT 01/02/2018: 1. No acute abnormalities identified. 2. Multifocal chronic infarcts including infarcts within the left and right parietal lobes, posterior left frontal lobe and anterior right frontal lobe. MRI head/MRA neck 01/03/2018: 1. No proximal vessel occlusion or significant stenosis within the proximal intracranial circulation. If there is concern for acute ischemia consider brain MRI for further evaluation. 2. Redemonstration of encephalomalacic changes in the right frontal lobe and right occipital lobe. Assessment/Plan Assessment/Plan [id number] w/ hx of obesity, HTN, HLD, CKD, 2/2 microscopic polyangiitis Rx'd w/ pulse steroids & plasmapheresis w/o recovery of renal function for which she is on chronic PD (2012), & stroke (2014) who presented to the ED on 12/31/2017 a.m. w/ c/o severe KENDRICK, dizziness, "floaters", abd discomfort, nausea, an episode of vomiting after taking her meds, & transient tremors which resolved while she was in the ED whose blood pressure has improved, but who had 3 worrisome episodes on 01/02/2018 w/ the second 2 c/w probable TIAs. The initial episode sounded vasovagal. While TIAs can certainly be associated w/ paroxysms of AF, the pt was on telemetry during the episodes, that sounded c/w TIAs, and there was no evidence of atrial fibrillation or other dysrhythmias. Her echocardiogram did not reveal any obvious potential cardioembolic sources for yesterday's events. Today's episode sounded orthostatic. Recommendations: * Orthostatic blood pressure checks. * Gentle hydration. * Follow-up potassium and replete magnesium. * DVT prophylaxis. Recommendations: Continue telemetry? Yes
[2018-01-03 23:10] VITALS: BP 114/72
[2018-01-04 07:00] VITALS: BP 136/64
--- NOTE | 2018-01-04 09:02 | PN- Housestaff ---
See Addendum Subjective Follow-up For: HYPERTENSIVE ENCEPHALOPATHY Tele-Events Since Last Visit: NSR 70s Subjective: Seen and examined. Resting comfortably. Had a rapid response yesterday most likely secondary to orthostatic hypotension. I have consulted cardiology to readjust the medication. That night was uneventful. Denies any fevers chills nausea vomiting Review of Systems Constitutional: Reports: see HPI. Objective Last 24 Hrs of Vital Signs/I&O Vital Signs Date Time Temp Pulse Resp B/P B/P Pulse O2 O2 Flow FiO2 Mean Ox Delivery Rate 01/04 1158 73 130/66 01/04 0933 134/66 01/04 0700 97.3 63 18 136/64 97 Room Air 01/04 0029 66 128/60 01/03 2310 97.7 73 18 114/72 96 01/03 2100 62 114/70 Intake & Output 01/04 1600 01/04 0800 01/04 0000 Intake Total 240 400 Output Total 800 Balance -560 400 Intake, Oral 240 400 Output, 800 Dialysate Patient 203 lb Weight Weight Bed scale Measurement Method Physical Exam General Appearance: Alert Cardiovascular: Normal S1, Normal S2 Lungs: Clear to Auscultation Abdomen: Soft Neurological: Normal Speech Current Medications: Current Medications Sig/Rich Start time Last Medication Dose Route Stop Time Status Admin Aspirin 81 MG DAILY 01/01 0900 AC 01/04 PO 0933 Atorvastatin Calcium 10 MG 1700 01/01 1700 AC 01/03 PO 1605 Calcium Acetate 667 MG WM 01/01 1200 AC 01/04 PO 1158 Erythromycin 1 LEXY ONCE PRN 01/03 0600 AC OPH Furosemide 80 MG DAILY 01/05 0900 AC PO Furosemide 80 MG DAILY 01/01 0900 DC 01/04 PO 0933 Heparin Sodium 5,000 UNIT Q8 12/31 2200 AC 01/04 (Porcine) SC 1331 Hydralazine HCl 25 MG BID 01/01 0900 DC 01/04 PO 0933 Labetalol HCl 200 MG BID 01/04 1200 AC 01/04 PO 1158 Labetalol HCl 200 MG BID 01/02 2100 DC 01/03 PO 1237 Levothyroxine Sodium 0.05 MG DAILY AC 01/02 0845 AC 01/04 PO 0633 Lisinopril 20 MG BID 01/01 0900 DC 01/02 PO 0808 Magnesium Sulfate 1 GM Q2H 01/04 0915 DC 01/04 Dextrose/Water 100 ML IV 01/04 1314 1159 Magnesium Sulfate 1 GM ONCE ONE 01/04 0330 CAN Dextrose/Water 100 ML IV 01/04 0729 Magnesium Sulfate 1 GM ONCE ONE 01/03 1530 DC 01/03 Dextrose/Water 100 ML IV 01/03 1929 1606 Omeprazole 40 MG DAILY AC PRN 12/31 2100 AC PO Polyethylene Glycol 17 GM DAILY PRN 01/04 0730 AC 01/04 PO 0932 Potassium Chloride 40 MEQ ONCE ONE 01/04 0915 DC 01/04 PO 01/04 0916 0932 Senna 187 MG AT BEDTIME PRN 01/04 0730 AC PO Sevelamer Carbonate 800 MG WM 12/31 2100 AC 01/04 PO 1158 Assessment/Plan Assessment: 67-year-old female with past medical history of hypertension, stroke, hyperlipidemia, migraine headache, GERD, heart failure with preserved ejection fraction, CKD on peritoneal dialysis [ Rapidly proliferative glomerulonephritis, pauciimmune], came with complaints of dizziness and vomiting. Aassessment and plan: 1. Hypertensive encephalopathy Patient admitted for hypertensive encephalopathy. Her blood pressure is controlled with Lasix, labetalol 200 twice a day, lisinopril, hydralazine 25. We maintained to decrease her blood pressure not more than 20% in view of potential stroke. Patient had few episodes of borderline blood pressure 100/70. Her blood pressure medications was adjusted accordingly. During the hospital course patient had 2 episodes of numbness and tingling of the right hand with word finding difficulty. In view of the high suspicion for TIA start CAT scan of the head was done which was negative. She was seen by neurologist who suggested to continue the current management and decided not to use aspirin/ Plavix given that she had previous hemorrhagic stroke. Patient also had ultrasound of her neck and MRA head which was negative. * Continue labetalol * Hold hydralazine and lisinopril unless blood pressure becomes elevated * Continue Lasix * Monitor orthostatics 2. End-stage renal disease on peritoneal dialysis-patient initially came in with nausea and abdominal pain and hence there was a doubt about peritonitis but this was ruled out given her cell count was 10. Nephrology on board who suggested to continue the current home dose of paternal diet peritoneal dialysis 4 times a day. 3. Stroke-patient had stroke in 2015. Follows Dr. Cline at [facility]. Patient will follow Dr. Guo as outpatient. 4. HFpEF-stable. Cardiology on board patient might need outpatient stress test. We will continue all her home medications. 5. Patient was seen by physical therapy who suggested home PT. Problem List: 1. Hypertensive encephalopathy Pain Ratin Pain Location: na Pain Goal: Pain 4 or less Pain Plan: prn Tomorrow's Labs & Rationales: bep
--- NOTE | 2018-01-04 09:49 | PN- Nephrology ---
Assessment/Plan Nephrology Assessment: Stable on current dialysis regimen of 4 exchanges a day, alternating 2.5% and 4.25% dextrose. Suggestion: No changes. Subjective Subjective: Patient apparently fell yesteday so discharge cancelled. Details unclear but looks good toay. Objective Vital Signs and I&Os Vital Signs Date Time Temp Pulse Resp B/P B/P Pulse O2 O2 Flow FiO2 Mean Ox Delivery Rate 01/04 0933 134/66 01/04 0700 97.3 63 18 136/64 97 Room Air 01/04 0029 66 128/60 01/03 2310 97.7 73 18 114/72 96 01/03 2100 62 114/70 01/03 1416 98.3 74 20 134/70 98 Room Air 01/03 1415 97.8 68 20 120/50 96 Room Air 01/03 1237 120/62 01/03 1054 128/66 Intake & Output 01/04 1600 01/04 0400 01/03 1600 01/03 0400 01/02 1600 01/02 0400 Intake Total 240 400 400 510 Output Total 516 468 9531 1200 1850 450 Balance -60 -100 -1200 -1200 -1340 -450 Intake, IV 10 Intake, Oral 240 400 400 500 Output, 418 460 6649 1000 1000 200 Dialysate Output, Urine 400 200 850 250 Patient 203 lb 208 lb 207 lb 208 lb Weight Weight Bed scale Bed scale Measurement Method Physical Exam: NAD VS as above Lungs: clear CV: no rub Abd: non-tender Exts: no edema Neuro A&O Current Medications: Current Medications Sig/Rich Start time Last Medication Dose Route Stop Time Status Admin Aspirin 81 MG DAILY 01/01 09 AC 01/04 PO 0933 Atorvastatin Calcium 10 MG 1700 01/01 1700 AC 01/03 PO 1605 Calcium Acetate 667 MG WM 01/01 1200 AC 01/04 PO 0852 Erythromycin 1 LEXY ONCE PRN 01/03 06 AC OPH Furosemide 80 MG DAILY 01/01 09 AC 01/04 PO 0933 Heparin Sodium 5,000 UNIT Q8 12/31 2200 AC 01/04 (Porcine) SC 0625 Hydralazine HCl 25 MG BID 01/01 0900 AC 01/04 PO 0933 Labetalol HCl 200 MG BID 01/02 2100 DC 01/03 PO 1237 Levothyroxine Sodium 0.05 MG DAILY AC 01/02 0845 AC 06/23 PO 0633 Lisinopril 20 MG BID 01/01 0900 DC 01/02 PO 0808 Magnesium Oxide 400 MG ONE ONE 01/03 1315 DC 01/03 PO 01/03 1316 1436 Magnesium Sulfate 1 GM Q2H 01/04 0915 AC 01/04 Dextrose/Water 100 ML IV 01/04 1314 0934 Magnesium Sulfate 1 GM ONCE ONE 01/04 0330 CAN Dextrose/Water 100 ML IV 01/04 0729 Magnesium Sulfate 1 GM ONCE ONE 01/03 1530 DC 01/03 Dextrose/Water 100 ML IV 01/03 1929 1606 Omeprazole 40 MG DAILY AC PRN 12/31 2100 AC PO Polyethylene Glycol 17 GM DAILY PRN 01/04 0730 AC 01/04 PO 0932 Potassium Chloride 40 MEQ ONCE ONE 01/04 09 DC 01/04 PO 01/04 0916 0932 Senna 187 MG AT BEDTIME PRN 01/04 0730 AC PO Sevelamer Carbonate 800 MG WM 12/31 2100 AC 01/04 PO 0852 Results Pertinent Lab Results: Laboratory Tests 01/03 01/03 01/03 01/03 1415 1410 1409 0750 Chemistry Sodium (137 - 145 mmol/L) 134 L Cancelled Potassium (3.5 - 5.1 mmol/L) 3.7 Cancelled Chloride (98 - 107 mmol/L) 98 Cancelled Carbon Dioxide (22 - 30 mmol/L) 24 Cancelled Anion Gap (5 - 16) 11 Cancelled BUN (7 - 17 mg/dL) 53 H Cancelled Creatinine (0.5 - 1.0 mg/dL) 8.7 *H Cancelled Estimated GFR (>60 ml/min) 5 L BUN/Creatinine Ratio (7 - 25 %) 6.1 L Cancelled Magnesium (1.6 - 2.3 mg/dL) 1.5 L Troponin I (< 0.11 ng/ml) 0.05 Cancelled TSH Cancelled Free T4 Cancelled Prolactin (3.0 - 18.6 ng/mL) 26.7 H 01/03 01/02 01/01 06 0605 1230 Chemistry Sodium (137 - 145 mmol/L) 134 L 137 137 Potassium (3.5 - 5.1 mmol/L) 3.8 4.5 4.4 Chloride (98 - 107 mmol/L) 99 101 102 Carbon Dioxide (22 - 30 mmol/L) 26 26 22 Anion Gap (5 - 16) 9 10 13 BUN (7 - 17 mg/dL) 53 H 56 H 61 H Creatinine (0.5 - 1.0 mg/dL) 9.1 *H 9.7 *H 9.9 *H Estimated GFR (>60 ml/min) 4 L 4 L 4 L BUN/Creatinine Ratio (7 - 25 %) 5.8 L 5.8 L 6.2 L Hemoglobin A1c (4.2 - 5.8 %) 4.8 Magnesium (1.6 - 2.3 mg/dL) 1.6 Triglycerides (<150 mg/dL) 89 Cholesterol (<200 MG/DL) 122 LDL Cholesterol, Calc (65 - 129 mg/dL) 71 HDL Cholesterol (40 - 60 mg/dL) 34 L Cholesterol/HDL Ratio (0.00 - 4.23 %) 4 TSH (0.270 - 4.200 uIU/mL) 16.000 H 22.800 H Free T4 (0.78 - 2.44 ng/dL) 1.22 1.23 Immunology Thyroglobulin Antibody (< 61 U/mL) < 15 Thyroid Peroxidase Ab (< 61 U/mL) < 28
--- NOTE | 2018-01-04 11:51 | PN- Cardiology ---
Subjective Subjective: The patient had a rapid response called yesterday for lightheadedness with orthostatic hypotension. Hypertension medications have been placed on hold. This morning she was noted to have nonsustained ventricular tachycardia. No chest pain. No palpitations. No diaphoresis. No nausea or vomiting. Objective Vital Signs and I&Os Vital Signs Date Time Temp Pulse Resp B/P B/P Pulse O2 O2 Flow FiO2 Mean Ox Delivery Rate 01/04 0933 134/66 01/04 0700 97.3 63 18 136/64 97 Room Air 01/04 0029 66 128/60 01/03 2310 97.7 73 18 114/72 96 01/03 2100 62 114/70 01/03 1416 98.3 74 20 134/70 98 Room Air 01/03 1415 97.8 68 20 120/50 96 Room Air 01/03 1237 120/62 Intake & Output 01/04 1600 01/04 0800 01/04 0000 01/03 1600 01/03 0800 01/03 0000 Intake Total 240 400 400 Output Total 785 547 0758 600 Balance -560 400 100 -1900 -600 Intake, Oral 240 400 400 Output, 800 1800 400 Dialysate Output, Urine 300 100 200 Patient 203 lb 208 lb Weight Weight Bed scale Measurement Method Physical Exam: Gen: NAD HEENT: normal Lungs: clear to auscultation, normal resp. effort Heart: RRR, S1, S2, 1/6 systolic murmur Abdomen: Soft, nontender, no masses Extremities: No clubbing, cyanosis, or edema. Neuro: Alert and oriented x 3, cranial nerves intact Current Medications: Current Medications Sig/Rich Start time Last Medication Dose Route Stop Time Status Admin Aspirin 81 MG DAILY 01/01 09 AC 01/04 PO 0933 Atorvastatin Calcium 10 MG 1700 01/01 1700 AC 01/03 PO 1605 Calcium Acetate 667 MG WM 01/01 1200 AC 01/04 PO 0852 Erythromycin 1 LEXY ONCE PRN 01/03 600 AC OPH Furosemide 80 MG DAILY 01/05 900 UNVr PO Furosemide 80 MG DAILY 01/01 09 DC 01/04 PO 0933 Heparin Sodium 5,000 UNIT Q8 12/31 2200 AC 01/04 (Porcine) SC 0625 Hydralazine HCl 25 MG BID 01/01 09 DC 01/04 PO 0933 Labetalol HCl 200 MG BID 01/04 1200 UNVr PO Labetalol HCl 200 MG BID 01/02 2100 DC 01/03 PO 1237 Levothyroxine Sodium 0.05 MG DAILY AC 01/02 0845 AC 01/04 PO 0633 Lisinopril 20 MG BID 01/01 0900 DC 01/02 PO 0808 Magnesium Oxide 400 MG ONE ONE 01/03 1315 DC 01/03 PO 01/03 1316 1436 Magnesium Sulfate 1 GM Q2H 01/04 0915 AC 01/04 Dextrose/Water 100 ML IV 01/04 1314 0934 Magnesium Sulfate 1 GM ONCE ONE 01/04 0330 CAN Dextrose/Water 100 ML IV 01/04 0729 Magnesium Sulfate 1 GM ONCE ONE 01/03 1530 DC 01/03 Dextrose/Water 100 ML IV 01/03 1929 1606 Omeprazole 40 MG DAILY AC PRN 12/31 2100 AC PO Polyethylene Glycol 17 GM DAILY PRN 01/04 0730 AC 01/04 PO 0932 Potassium Chloride 40 MEQ ONCE ONE 01/04 0915 DC 01/04 PO 01/04 0916 0932 Senna 187 MG AT BEDTIME PRN 01/04 0730 AC PO Sevelamer Carbonate 800 MG WM 12/31 2100 AC 01/04 PO 0852 Results Last 48 Hrs of Labs/Mics: Laboratory Tests 01/03/18 1415: Anion Gap 11, Estimated GFR 5 L, BUN/Creatinine Ratio 6.1 L, Magnesium 1.5 L, Troponin I 0.05, Prolactin 26.7 H 01/03/18 1410: Sodium Cancelled, Potassium Cancelled, Chloride Cancelled, Carbon Dioxide Cancelled, Anion Gap Cancelled, BUN Cancelled, Creatinine Cancelled, BUN/ Creatinine Ratio Cancelled 01/03/18 1409: Troponin I Cancelled 01/03/18 0750: TSH Cancelled, Free T4 Cancelled 01/03/18 0623: Anion Gap 9, Estimated GFR 4 L, BUN/Creatinine Ratio 5.8 L, Magnesium 1.6, TSH 16.000 H, Free T4 1.22 Assessment/Plan Assessment/Plan 1. End-stage renal disease on peritoneal dialysis 2. Heart failure with preserved ejection fraction 3. Hypertensive encephalopathy on admission, improved 4. Orthostatic hypotension 5. Nonsustained ventricular tachycardia Plan: * Continue labetalol * Hold hydralazine and lisinopril unless blood pressure becomes elevated * Continue Lasix * Monitor orthostatics * Supplement magnesium Continue telemetry? Yes
[2018-01-04 14:00] VITALS: BP 92/60
[2018-01-04 20:15] VITALS: BP 68/00
[2018-01-04 21:00] VITALS: BP 98/56
[2018-01-04 21:44] VITALS: BP 106/58
[2018-01-05 06:30] VITALS: BP 116/68
--- NOTE | 2018-01-05 08:26 | PN- Housestaff ---
Mj SHARP,Gerard 01/05/18 0826: Subjective Follow-up For: Hypertension encephalopathy Subjective: Seen and examined at [facility]. She reports dizziness when she stands up, no chest pain,palpitations or sob. She remians orthostatic postive. Denies any new focal neurological deficits. No acute o/n telemetry event. Review of Systems Constitutional: Reports: see HPI. Objective Last 24 Hrs of Vital Signs/I&O Vital Signs Date Time Temp Pulse Resp B/P B/P Pulse O2 O2 Flow FiO2 Mean Ox Delivery Rate 01/05 0835 74 120/62 01/05 0630 97.0 58 18 116/68 95 01/04 2144 97.2 64 106/58 97 Room Air 01/04 2100 57 98/56 01/04 2021 57 98/56 01/04 2015 57 68/00 01/04 1400 97.6 66 20 92/60 98 Intake & Output 01/05 1600 01/05 0800 01/05 0000 Intake Total 120 240 Output Total 600 300 Balance -480 -60 Intake, Oral 120 240 Output, 600 100 Dialysate Output, Urine 200 Patient 92.334 kg Weight Weight Bed scale Measurement Method Physical Exam General Appearance: Alert, Oriented X3, Cooperative Cardiovascular: Regular Rate, Normal S1, Normal S2 Lungs: Clear to Auscultation, Normal Air Movement Abdomen: Normal Bowel Sounds, Soft, No Tenderness, PD tube intact with no exit site infection appearance. Neurological: Normal Speech, Normal Tone, Sensation Intact Extremities: No Edema Current Medications: Current Medications Sig/Rich Start time Last Medication Dose Route Stop Time Status Admin Aspirin 81 MG DAILY 01/01 0900 AC 01/05 PO 0834 Atorvastatin Calcium 10 MG 1700 01/01 1700 AC 01/04 PO 1703 Calcium Acetate 667 MG WM 01/01 1200 AC 01/05 PO 1131 Erythromycin 1 LEXY ONCE PRN 01/03 0600 AC OPH Furosemide 80 MG DAILY 01/05 0900 CAN PO Heparin Sodium 5,000 UNIT Q8 12/31 2200 AC 01/05 (Porcine) SC 1131 Labetalol HCl 200 MG BID 01/04 1200 AC 01/05 PO 0835 Levothyroxine Sodium 0.05 MG DAILY AC 01/02 0845 AC 01/05 PO 0542 Magnesium Sulfate 1 GM Q2H 01/04 0915 DC 01/04 Dextrose/Water 100 ML IV 01/04 1314 1159 Omeprazole 40 MG DAILY AC PRN 12/31 2100 AC PO Polyethylene Glycol 17 GM DAILY PRN 01/04 0730 AC 01/04 PO 0932 Senna 187 MG AT BEDTIME PRN 01/04 0730 AC 01/05 PO 0835 Sevelamer Carbonate 800 MG WM 12/31 2100 AC 01/05 PO 1131 Sodium Chloride 1,000 ML Q13H 01/05 0845 AC 01/05 IV 01/05 2144 0843 Sodium Chloride 1,000 ML ONCE ONE 01/05 0830 CAN IV 01/05 0831 Last 24 Hrs of Lab/Carlos Results Last 24 Hrs of Labs/Mics: Laboratory Tests 01/05/18 0605: Anion Gap 11, Estimated GFR 4 L, BUN/Creatinine Ratio 5.4 L Assessment/Plan Assessment: 57-year-old very pleasant lady with a past medical history of hypertension, recent hemorrhagic stroke, hyperlipidemia, migraine headaches, end-stage renal disease secondary to microscopic polyangiitis now on peritoneal dialysis, presented with symptoms consistent with hypertensive encephalopathy (elevated systolic pressures of 220 and altered mental status). Press syndrome and posterior stroke was considered but ruled out through MRI. On day 2 patient had transient episode of focal neurological deficit including tingling in difficulty in speech, a stat CT was obtained which ruled out any acute intracranial bleed, as was followed by an MRA and carotid Dopplers which did not show any new acute pathology. On day 3 of admission patient had a rapid response secondary to a mechanical fall which was witnessed with no trauma to the head. She was orthostatic positive with no focal neurological deficit. Subsequently her Lasix , lisinopril and hydralazine were withheld and patient given IV fluids in the context of orthostatic hypotension. Impression * Orthostatic hypotension. Most likely iatrogenic in the context of increased dialysate, and increased BP meds due to uncontrolled elevated BP with symptoms of encephalopathy. * Hypertensive encephalopathy. Resolved * Chronic medical condition: End-stage renal disease on peritoneal dialysis, heart failure with preserved ejection fraction, history of hemorrhagic CVA, and migraine headaches. Plan Continue to obtain orthostatics every shift. Dialysate concentration has been decreased, Lasix lisinopril, hydralazine also temporarily stopped. All these measures are in the context of patient having symptomatic orthostatic hypotension due to volume depletion. Will continue to monitor patients clinical status and high blood pressure. Will continue to follow nephrology and cardiac recommendation regarding fluid status. Will reassess tomorrow morning, if patient is hemodynamically stable will start anticipating discharge. We'll need to coordinate with cardiac and nephrology to obtain an optimal balance between preventing uncontrolled hypertension/encephalopathy and iatrogenic volume depletion. Problem List: 1. Hypertensive encephalopathy 2. 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 No focal neurological symptoms on exam initially, given Enalaprilat and Labetalol in ED with improvement in BP and rapid improvement in symptoms. She currently complaints only of weakness but dizziness has improved. Neuro exam normal. She offers no other complaints. Labs show elevated creatinine consistent with ESRD, normal electrolytes and CBC. CT head shows new small indeterminate age areas of hypoattenuation within the right and left parietal lobes at the high convexity that are nonspecific. MRI was done which showed micro- hemorrhages. Patient feels well at rest but becomes lightheaded and unstable when trying to stand. She was hypotensive overnight 68/palp, improved with IV fluids. Lasix has been stopped. 1. Cerebral amyloid angiopathy 2. Labile essential hypertension 3. ESRD on PD secondary to mciroscopic polyangiitis Plan - Continue on telemetry - Discontinue Lasix - Continue Labetalol as sole anti-hypertensive - Follow nephrology and cardiology recommendations - Continue remaining home medications - PT eval - DVT PPx
--- NOTE | 2018-01-05 08:42 | PN- Nephrology ---
Assessment/Plan Nephrology Assessment: Hypotension, probably driven by volume depletion Suggestion: Have changed to all 1.5% dextrose, low calcium dialysate to minimize UF. Discontine Lasix. Will give one liter of NS over 13 hrs. Subjective Subjective: Patient still dizzy when standing, quite low BPs last night. I think she is getting volume depleted as has been removing almost 2 liters of fluid with PD, not sure I/O accurate. Objective Vital Signs and I&Os Vital Signs Date Time Temp Pulse Resp B/P B/P Pulse O2 O2 Flow FiO2 Mean Ox Delivery Rate 01/05 0835 74 120/62 01/05 0630 97.0 58 18 116/68 95 01/04 2144 97.2 64 106/58 97 Room Air 01/04 2100 57 98/56 01/04 2021 57 98/56 01/04 2015 57 68/00 01/04 1400 97.6 66 20 92/60 98 01/04 1158 73 130/66 01/04 0933 134/66 Intake & Output 01/05 1600 01/05 0400 01/04 1600 01/04 0400 01/03 1600 01/03 0400 Intake Total 120 240 840 400 400 Output Total 600 300 756 378 1832 1200 Balance -480 -60 540 -100 -1200 -1200 Intake, IV 200 Intake, Oral 120 240 640 400 400 Output, 600 100 692 187 8541 1000 Dialysate Output, Urine 200 400 200 Patient 204 lb 203 lb 208 lb Weight Weight Bed scale Bed scale Measurement Method Physical Exam: NAD VS as above Lungs: clear CV: no rub Abd: nontender Exts: no edema Neuro : A&O Current Medications: Current Medications Sig/Rich Start time Last Medication Dose Route Stop Time Status Admin Aspirin 81 MG DAILY 01/01 09 AC 01/05 PO 0834 Atorvastatin Calcium 10 MG 1700 01/01 1700 AC 01/04 PO 1703 Calcium Acetate 667 MG WM 01/01 1200 AC 01/05 PO 0834 Erythromycin 1 LEXY ONCE PRN 01/03 06 AC OPH Furosemide 80 MG DAILY 01/05 0900 CAN PO Furosemide 80 MG DAILY 01/01 09 DC 01/04 PO 0933 Heparin Sodium 5,000 UNIT Q8 12/31 2200 AC 01/05 (Porcine) SC 0543 Hydralazine HCl 25 MG BID 01/01 09 DC 01/04 PO 0933 Labetalol HCl 200 MG BID 01/04 1200 AC 01/05 PO 0835 Labetalol HCl 200 MG BID 01/02 2100 DC 01/03 PO 1237 Levothyroxine Sodium 0.05 MG DAILY AC 01/02 0845 AC 01/05 PO 0542 Lisinopril 20 MG BID 01/01 0900 DC 01/02 PO 0808 Magnesium Sulfate 1 GM Q2H 01/04 0915 DC 01/04 Dextrose/Water 100 ML IV 01/04 1314 1159 Omeprazole 40 MG DAILY AC PRN 12/31 2100 AC PO Polyethylene Glycol 17 GM DAILY PRN 01/04 0730 AC 01/04 PO 0932 Potassium Chloride 40 MEQ ONCE ONE 01/04 0915 DC 01/04 PO 01/04 0916 0932 Senna 187 MG AT BEDTIME PRN 01/04 0730 AC 01/05 PO 0835 Sevelamer Carbonate 800 MG WM 12/31 2100 AC 01/05 PO 0834 Sodium Chloride 1,000 ML Q13H 01/05 0845 AC IV 01/05 2144 Sodium Chloride 1,000 ML ONCE ONE 01/05 0830 CAN IV 01/05 0831 Results Pertinent Lab Results: Laboratory Tests 01/05 01/03 01/03 01/03 01/03 0605 1415 1410 1409 0750 Chemistry Sodium (137 - 145 mmol/L) Pending 134 L Cancelled Potassium (3.5 - 5.1 mmol/L) Pending 3.7 Cancelled Chloride (98 - 107 mmol/L) Pending 98 Cancelled Carbon Dioxide (22 - 30 mmol/L) Pending 24 Cancelled Anion Gap (5 - 16) Pending 11 Cancelled BUN (7 - 17 mg/dL) Pending 53 H Cancelled Creatinine (0.5 - 1.0 mg/dL) Pending 8.7 *H Cancelled Estimated GFR (>60 ml/min) 5 L BUN/Creatinine Ratio (7 - 25 %) Pending 6.1 L Cancelled Magnesium (1.6 - 2.3 mg/dL) 1.5 L Troponin I (< 0.11 ng/ml) 0.05 Cancelled TSH Cancelled Free T4 Cancelled Prolactin (3.0 - 18.6 ng/mL) 26.7 H 01/03 0623 Chemistry Sodium (137 - 145 mmol/L) 134 L Potassium (3.5 - 5.1 mmol/L) 3.8 Chloride (98 - 107 mmol/L) 99 Carbon Dioxide (22 - 30 mmol/L) 26 Anion Gap (5 - 16) 9 BUN (7 - 17 mg/dL) 53 H Creatinine (0.5 - 1.0 mg/dL) 9.1 *H Estimated GFR (>60 ml/min) 4 L BUN/Creatinine Ratio (7 - 25 %) 5.8 L Magnesium (1.6 - 2.3 mg/dL) 1.6 TSH (0.270 - 4.200 uIU/mL) 16.000 H Free T4 (0.78 - 2.44 ng/dL) 1.22
--- NOTE | 2018-01-05 10:47 | PN- Cardiology ---
Subjective Subjective: Feeling well. Hypotension has improved. No chest pain. No palpitations. No diaphoresis. Lasix has been discontinued, and peritoneal dialysis adjusted by nephrology. Objective Vital Signs and I&Os Vital Signs Date Time Temp Pulse Resp B/P B/P Pulse O2 O2 Flow FiO2 Mean Ox Delivery Rate 01/05 0835 74 120/62 01/05 0630 97.0 58 18 116/68 95 01/04 2144 97.2 64 106/58 97 Room Air 01/04 2100 57 98/56 01/04 2021 57 98/56 01/04 2015 57 68/00 01/04 1400 97.6 66 20 92/60 98 01/04 1158 73 130/66 Intake & Output 01/05 1600 01/05 0800 01/05 0000 01/04 1600 01/04 0800 01/04 0000 Intake Total 120 240 600 240 400 Output Total 600 300 800 Balance -480 -60 600 -560 400 Intake, IV 200 Intake, Oral 120 240 400 240 400 Output, 600 100 800 Dialysate Output, Urine 200 Patient 204 lb 203 lb Weight Weight Bed scale Bed scale Measurement Method Physical Exam: Gen: NAD HEENT: normal Lungs: clear to auscultation, normal resp. effort Heart: RRR, S1, S2, 1/6 systolic murmur Abdomen: Soft, nontender, no masses Extremities: No clubbing, cyanosis, or edema. Neuro: Alert and oriented x 3, cranial nerves intact Current Medications: Current Medications Sig/Rich Start time Last Medication Dose Route Stop Time Status Admin Aspirin 81 MG DAILY 01/01 0900 AC 01/05 PO 0834 Atorvastatin Calcium 10 MG 1700 01/01 1700 AC 01/04 PO 1703 Calcium Acetate 667 MG WM 01/01 1200 AC 01/05 PO 0834 Erythromycin 1 LEXY ONCE PRN 01/03 06 AC OPH Furosemide 80 MG DAILY 01/05 0900 CAN PO Furosemide 80 MG DAILY 01/01 0900 DC 01/04 PO 0933 Heparin Sodium 5,000 UNIT Q8 12/31 2200 AC 01/05 (Porcine) SC 0543 Hydralazine HCl 25 MG BID 01/01 0900 DC 01/04 PO 0933 Labetalol HCl 200 MG BID 01/04 1200 AC 01/05 PO 0835 Levothyroxine Sodium 0.05 MG DAILY AC 01/02 0845 AC 01/05 PO 0542 Magnesium Sulfate 1 GM Q2H 01/04 0915 DC 01/04 Dextrose/Water 100 ML IV 01/04 1314 1159 Omeprazole 40 MG DAILY AC PRN 12/31 2100 AC PO Polyethylene Glycol 17 GM DAILY PRN 01/04 0730 AC 01/04 PO 0932 Senna 187 MG AT BEDTIME PRN 01/04 0730 AC 01/05 PO 0835 Sevelamer Carbonate 800 MG WM 12/31 2100 AC 01/05 PO 0834 Sodium Chloride 1,000 ML Q13H 01/05 0845 AC 01/05 IV 01/05 2144 0843 Sodium Chloride 1,000 ML ONCE ONE 01/05 0830 CAN IV 01/05 0831 Results Last 48 Hrs of Labs/Mics: Laboratory Tests 01/05/18 0605: Anion Gap 11, Estimated GFR 4 L, BUN/Creatinine Ratio 5.4 L 01/03/18 1415: Anion Gap 11, Estimated GFR 5 L, BUN/Creatinine Ratio 6.1 L, Magnesium 1.5 L, Troponin I 0.05, Prolactin 26.7 H 01/03/18 1410: Sodium Cancelled, Potassium Cancelled, Chloride Cancelled, Carbon Dioxide Cancelled, Anion Gap Cancelled, BUN Cancelled, Creatinine Cancelled, BUN/ Creatinine Ratio Cancelled 01/03/18 1409: Troponin I Cancelled Assessment/Plan Assessment/Plan 1. End-stage renal disease on peritoneal dialysis 2. Heart failure with preserved ejection fraction 3. Hypertensive encephalopathy on admission, improved 4. Orthostatic hypotension 5. Nonsustained ventricular tachycardia Plan: * Continue labetalol * Hold hydralazine and lisinopril unless blood pressure becomes elevated * Discontinue Lasix as recommended by nephrology * Monitor orthostatics * Recheck magnesium level in the morning Continue telemetry? Yes
[2018-01-05 14:00] VITALS: BP 96/56
[2018-01-05 22:02] VITALS: BP 110/58
[2018-01-06 06:47] VITALS: BP 122/60
--- NOTE | 2018-01-06 07:02 | PN- Housestaff ---
Rl SHARP,Ami 01/06/18 0702: Subjective Follow-up For: HYPERTENSIVE ENCEPHALOPATHY Complaints: no complaints Tele-Events Since Last Visit: Normal sinus rhythm with a heart rate of 64 Subjective: Patient seen and examined at bedside. No overnight events. Patient denies further episodes of fall, dizziness, nausea, vomiting, abdominal pain, chest pain. Review of Systems Constitutional: Reports: no symptoms. Objective Last 24 Hrs of Vital Signs/I&O Vital Signs Date Time Temp Pulse Resp B/P B/P Pulse O2 O2 Flow FiO2 Mean Ox Delivery Rate 01/06 0746 62 120/64 01/06 0647 97.7 64 18 122/60 96 Room Air 01/05 2202 97.5 88 18 110/58 96 Room Air 01/05 2149 70 110/56 01/05 1400 97.7 67 20 96/56 97 01/05 0835 74 120/62 Intake & Output 01/06 1600 01/06 0800 01/06 0000 Intake Total 200 200 Output Total 100 0 Balance 100 200 Intake, Oral 200 200 Number 2 Bowel Movements Output, 100 0 Dialysate Patient 206 lb Weight Weight Bed scale Measurement Method Physical Exam General Appearance: Alert, Oriented X3, Cooperative, No Acute Distress Cardiovascular: Regular Rate, Normal S1, Normal S2 Lungs: Normal Air Movement Abdomen: Soft, No Tenderness, No Hepatospenomegaly Neurological: Strength at 5/5 X4 Ext Extremities: No Cyanosis, No Edema, Normal Pulses Current Medications: Current Medications Sig/Rich Start time Last Medication Dose Route Stop Time Status Admin Aspirin 81 MG DAILY 01/01 0900 AC 01/06 PO 0746 Atorvastatin Calcium 10 MG 1700 01/01 1700 AC 01/05 PO 1614 Bisacodyl 10 MG ONCE ONE 01/06 2000 DC 01/05 AR 01/05 Calcium Acetate 667 MG WM 01/01 1200 AC 01/06 PO 0746 Erythromycin 1 LEXY ONCE PRN 01/03 0600 AC 01/05 OPH 2149 Heparin Sodium 5,000 UNIT Q8 12/31 2200 AC 01/06 (Porcine) SC 0603 Labetalol HCl 200 MG BID 01/04 1200 AC 01/06 PO 0746 Levothyroxine Sodium 0.05 MG DAILY AC 01/02 0845 AC 01/06 PO 0603 Omeprazole 40 MG DAILY AC PRN 12/31 2100 AC PO Polyethylene Glycol 17 GM DAILY PRN 01/04 0730 AC 01/04 PO 0932 Senna 187 MG AT BEDTIME PRN 01/04 0730 AC 01/05 PO 0835 Sevelamer Carbonate 800 MG WM 12/31 2100 AC 01/06 PO 0746 Sodium Chloride 1,000 ML Q13H 01/05 0845 DC 01/05 IV 01/05 5452 0871 Last 24 Hrs of Lab/Carlos Results Last 24 Hrs of Labs/Mics: Laboratory Tests 01/06/18 0606: Anion Gap 8, Estimated GFR 5 L, BUN/Creatinine Ratio 6.0 L, Magnesium 2.2, CBC w Diff NO MAN DIFF REQ, RBC 3.18 L, MCV 92.8, MCH 29.5, MCHC 31.9 L, RDW 14.3, MPV 10.0, Gran % 65.2, Lymphocytes % 20.4 L, Monocytes % 7.8, Eosinophils % 5.8 H, Basophils % 0.8, Absolute Granulocytes 3.6, Absolute Lymphocytes 1.1 L, Absolute Monocytes 0.4, Absolute Eosinophils 0.3, Absolute Basophils 0 Assessment/Plan Assessment: 67-year-old female with past medical history of hypertension, stroke, hyperlipidemia, migraine headache, GERD, heart failure with preserved ejection fraction, CKD on peritoneal dialysis [ Rapidly proliferative glomerulonephritis, pauciimmune], came with complaints of dizziness and vomiting. assessment and plan: 1. Hypertensive encephalopathy Patient admitted for hypertensive encephalopathy. Her blood pressure was managed with Lasix, labetalol 200 twice a day, lisinopril, hydralazine 25. We maintained to decrease her blood pressure not more than 20% in view of potential stroke. Patient had few episodes of borderline blood pressure 100/70. Her blood pressure medications was adjusted accordingly. rochelle currentlt only on LABETELOL 200 bid. During the hospital course patient had 2 episodes of numbness and tingling of the right hand with word finding difficulty. In view of the high suspicion for TIA stat CAT scan of the head was done which was negative. She was seen by neurologist who suggested to continue the current management and decided not to use aspirin/Plavix given that she had previous hemorrhagic stroke. Patient also had ultrasound of her neck and MRA head which was negative. We will do orthostats. 2. End-stage renal disease on peritoneal dialysis-patient initially came in with nausea and abdominal pain and hence there was a doubt about peritonitis but this was ruled out given her cell count was 10. Nephrology on board who suggested to continue the current home dose of peritoneal dialysis 4 times a day. 3. Stroke-patient had stroke in 2015. Follows Dr. Cline at [facility]. Patient will follow Dr. Guo as outpatient. 4. HFpEF-stable. Cardiology on board patient might need outpatient stress test. We will continue all her home medications. 5. Pt c/o left leg pain and swelling- we will take US doppler to r/o DVT. 6. Patient was seen by physical therapy who suggested home PT. plan for today:F/U us DOPPLER, PT, ORTHOSTATS- if dvt ruled out with no neg orthostat we will send her home. Problem List: 1. Hypertensive encephalopathy Pain Ratin Pain Location: left leg Pain Goal: Remain pain free Pain Plan: tylenol Tomorrow's Labs & Rationales: cbc,bep Anila Choe 01/06/18 1131: Attending MD Review Statement Attending Statement Attending MD Statement: examined this patient, discuss w/resident/PA/DUST SAMPLER, agreed w/resident/PA/DUST SAMPLER, reviewed EMR data (avail), discussed with nursing, discussed with case mgmt Attending Assessment/Plan: Left leg pain - Pt complaining of some left leg pain in the medial aspect of thigh which on exam reveals an area of edematous area which is tender to touch. Will get ultrasound of the left leg to r/o DVT. Hypertensive emergency-Her bp is much better controlled now and currently she is only on labetatolo. pt was instructed to be complaint with her meds. ESRD on peritoneal dialysis- stable.Nephrology following. Cont to hold lasix. d/w pt the care plan. Reviewed labs and vitals.
[2018-01-06 07:59] LABS: ABSOLUTE BASOPHIL COUNT 0 /CUMM (0.0-0.2); ABSOLUTE EOSINOPHIL COUNT 0.3 /CUMM (0.0-0.7); ABSOLUTE GRANULOCYTE CT 3.6 /CUMM (1.4-6.5); ABSOLUTE LYMPH COUNT 1.1 /CUMM (1.2-3.4); ABSOLUTE MONOCYTE COUNT 0.4 /CUMM (0.10-0.60); MEAN CORPUSCULAR VOLUME 92.8 FL (81.0-99.0); RED BLOOD CELL CT 3.18 /CUMM (4.20-5.40); WHITE BLOOD CELL COUNT 5.5 /CUMM (4.8-10.8)
[2018-01-06 08:20] LABS: BASOPHIL % 0.8 % (0.0-2.0); EOSINOPHIL % 5.8 % (0-5); GRANULOCYTE % 65.2 % (42.2-75.2); MEAN CORPUSCULAR HGB 29.5 PG (27.0-31.0); MEAN CORPUSCULAR HGB CONC 31.9 G/DL (33.0-37.0); PLATELET COUNT 183 /CUMM (130-400); RBC DISTRIBUTION WIDTH 14.3 % (11.5-14.5)
[2018-01-06 08:31] LABS: HEMATOCRIT 29.5 % (37-47)
--- NOTE | 2018-01-06 09:33 | PN- Nephrology ---
Assessment/Plan Nephrology Assessment: 1. ESRD: due to chronic GN - on chronic PD 2. Orthostasis: need to recheck standing BP 3. thigh pain: needs Doppler to exclude DVT 4. HTN: controlled 5. anemia: needs YSABEL restarted Suggestion: 1. continue 1.5% dextrose PD to limit UF 2. orthostatic BPs 3. Doppler L leg 4. EPO 20,000 units sc q week Subjective Subjective: No further dizziness but at bedrest On all 1.5% Dextrose PD to limit UF Has L inner thigh pain Objective Vital Signs and I&Os Vital Signs Date Time Temp Pulse Resp B/P B/P Pulse O2 O2 Flow FiO2 Mean Ox Delivery Rate 01/06 0746 62 120/64 01/06 0647 97.7 64 18 122/60 96 Room Air 01/05 2202 97.5 88 18 110/58 96 Room Air 01/05 2149 70 110/56 01/05 1400 97.7 67 20 96/56 97 Intake & Output 01/06 1600 01/06 0400 01/05 1600 01/05 0400 01/04 1600 01/04 0400 Intake Total 730 344 0229 240 840 400 Output Total 100 0 700 300 300 500 Balance 100 200 370 -60 540 -100 Intake, IV 550 200 Intake, Oral 200 200 520 240 640 400 Number 2 Bowel Movements Output, 100 0 600 100 300 500 Dialysate Output, Urine 100 200 Patient 206 lb 204 lb 203 lb Weight Weight Bed scale Bed scale Bed scale Measurement Method Physical Exam General Appearance: well developed/nourished, no apparent distress, alert Head: atraumatic, normal appearance Ears, Nose, Throat: normal ENT inspection Neck: normal inspection Respiratory: normal breath sounds, no respiratory distress, quiet respiration, lungs clear Cardiovascular: regular rate/rhythm Abdomen: soft, non-tender Extremities: tender & indurated L inner thigh Neurologic/Psychiatric: awake, alert Lymphatic: no anterior cervical pattie Current Medications: Current Medications Sig/Rich Start time Last Medication Dose Route Stop Time Status Admin Aspirin 81 MG DAILY 01/01 0900 AC 01/06 PO 0746 Atorvastatin Calcium 10 MG 1700 01/01 1700 AC 01/05 PO 1614 Bisacodyl 10 MG ONCE ONE 01/06 2000 DC 01/05 FL 01/05 Calcium Acetate 667 MG WM 01/01 1200 AC 01/06 PO 0746 Erythromycin 1 LEXY ONCE PRN 01/03 0600 AC 01/05 OPH 2149 Heparin Sodium 5,000 UNIT Q8 12/31 2200 AC 01/06 (Porcine) SC 0603 Labetalol HCl 200 MG BID 01/04 1200 AC 01/06 PO 0746 Levothyroxine Sodium 0.05 MG DAILY AC 01/02 0845 AC 01/06 PO 0603 Omeprazole 40 MG DAILY AC PRN 12/31 2100 AC PO Polyethylene Glycol 17 GM DAILY PRN 01/04 0730 AC 01/04 PO 0932 Senna 187 MG AT BEDTIME PRN 01/04 0730 AC 01/05 PO 0835 Sevelamer Carbonate 800 MG WM 12/31 2100 AC 01/06 PO 0746 Sodium Chloride 1,000 ML Q13H 01/05 0845 DC 01/05 IV 01/05 2144 0843 Results Pertinent Lab Results: Laboratory Tests 01/06 01/05 01/03 0606 0605 1415 Chemistry Sodium (137 - 145 mmol/L) 134 L 135 L 134 L Potassium (3.5 - 5.1 mmol/L) 4.3 4.4 3.7 Chloride (98 - 107 mmol/L) 97 L 96 L 98 Carbon Dioxide (22 - 30 mmol/L) 28 28 24 Anion Gap (5 - 16) 8 11 11 BUN (7 - 17 mg/dL) 50 H 49 H 53 H Creatinine (0.5 - 1.0 mg/dL) 8.3 *H 9.0 *H 8.7 *H Estimated GFR (>60 ml/min) 5 L 4 L 5 L BUN/Creatinine Ratio (7 - 25 %) 6.0 L 5.4 L 6.1 L Magnesium (1.6 - 2.3 mg/dL) 2.2 2.3 1.5 L Troponin I (< 0.11 ng/ml) 0.05 Prolactin (3.0 - 18.6 ng/mL) 26.7 H Hematology CBC w Diff NO MAN DIFF REQ WBC (4.8 - 10.8 /CUMM) 5.5 RBC (4.20 - 5.40 /CUMM) 3.18 L Hgb (12.0 - 16.0 G/DL) 9.4 L Hct (37 - 47 %) 29.5 L MCV (81.0 - 99.0 FL) 92.8 MCH (27.0 - 31.0 PG) 29.5 MCHC (33.0 - 37.0 G/DL) 31.9 L RDW (11.5 - 14.5 %) 14.3 Plt Count (130 - 400 /CUMM) 183 MPV (7.4 - 10.4 FL) 10.0 Gran % (42.2 - 75.2 %) 65.2 Lymphocytes % (20.5 - 51.1 %) 20.4 L Monocytes % (1.7 - 9.3 %) 7.8 Eosinophils % (0 - 5 %) 5.8 H Basophils % (0.0 - 2.0 %) 0.8 Absolute Granulocytes (1.4 - 6.5 /CUMM) 3.6 Absolute Lymphocytes (1.2 - 3.4 /CUMM) 1.1 L Absolute Monocytes (0.10 - 0.60 /CUMM) 0.4 Absolute Eosinophils (0.0 - 0.7 /CUMM) 0.3 Absolute Basophils (0.0 - 0.2 /CUMM) 0 01/03 01/03 1410 1409 Chemistry Sodium Cancelled Potassium Cancelled Chloride Cancelled Carbon Dioxide Cancelled Anion Gap Cancelled BUN Cancelled Creatinine Cancelled BUN/Creatinine Ratio Cancelled Troponin I Cancelled Imaging/Other Studies: MR: IMPRESSION: - No proximal vessel occlusion or significant stenosis within the proximal intracranial circulation. If there is concern for acute ischemia consider brain MRI for further evaluation. - Redemonstration of encephalomalacic changes in the right frontal lobe and right occipital lobe.
[2018-01-06 15:00] VITALS: BP 118/58
--- NOTE | 2018-01-06 16:21 | ULTRASOUND REPORT ---
EXAMINATION: US TRIPLEX LOWER EXTREMITY, LEFT CLINICAL INFORMATION: Left thigh pain, tenderness. Rule out DVT. COMPARISON: None TECHNIQUE: Color-flow triplex imaging with spectral analysis and compression Doppler were performed on the lower extremity. FINDINGS: Respiratory variation, normal compression and augmented flow are noted throughout the lower extremity. The visualized common femoral vein, superficial femoral vein, profunda femoral vein, popliteal vein and midcalf peroneal and posterior tibial venous segments show no evidence of deep venous thrombosis. Assessment of portions of the calf veins is somewhat limited by body habitus. There is no Fraire's cyst. IMPRESSION: No evidence of deep venous thrombosis involving the lower extremity.
--- NOTE | 2018-01-06 18:59 | PN- Cardiology ---
Subjective Subjective: Events of the weekend reviewed. Complaining of painful left lower extremity. Orthostatic hypotension. Telemetry reveals sinus rhythm. Objective Vital Signs and I&Os Vital Signs Date Time Temp Pulse Resp B/P B/P Pulse O2 O2 Flow FiO2 Mean Ox Delivery Rate 01/06 1500 97.9 69 18 118/58 97 01/06 0746 62 120/64 01/06 0647 97.7 64 18 122/60 96 Room Air 01/05 2202 97.5 88 18 110/58 96 Room Air 01/05 2149 70 110/56 Intake & Output 01/06 1600 01/06 0800 01/06 0000 01/05 1600 01/05 0800 01/05 0000 Intake Total 400 200 200 950 120 240 Output Total 400 100 700 800 600 300 Balance 0 100 -500 150 -480 -60 Intake, IV 550 Intake, Oral 400 200 200 400 120 240 Number 2 Bowel Movements Output, 100 100 700 700 600 100 Dialysate Output, Urine 300 100 200 Patient 206 lb 204 lb Weight Weight Bed scale Bed scale Measurement Method Physical Exam: well developed, obese elderly female in no acute distress. HEENT: Normocephalic, atraumatic, EOMI, moist mucous membranes. Neck: No JVD, no bruits. Lungs: Clear to auscultation bilaterally. Heart: S1, S2 grade 1-2/6 systolic murmur. No gallop or rub. PMI not well felt. Abdomen: Soft, nontender, positive bowel sounds. Extremities: No edema. Current Medications: Current Medications Sig/Rich Start time Last Medication Dose Route Stop Time Status Admin Aspirin 81 MG DAILY 01/01 0900 AC 01/06 PO 0746 Atorvastatin Calcium 10 MG 1700 01/01 1700 AC 01/06 PO 1616 Bisacodyl 10 MG ONCE ONE 01/05 2000 DC 01/05 SD 01/05 Calcium Acetate 667 MG WM 01/01 1200 AC 01/06 PO 1616 Epoetin Clifford 20,000 UNIT ONCE A WEEK 01/06 1000 AC 01/06 SC 1048 Erythromycin 1 LEXY ONCE PRN 01/03 0600 AC 01/05 OPH 2149 Heparin Sodium 5,000 UNIT Q8 12/31 2200 AC 01/06 (Porcine) SC 1323 Labetalol HCl 200 MG BID 01/04 1200 AC 01/06 PO 0746 Levothyroxine Sodium 0.05 MG DAILY AC 01/02 0845 AC 01/06 PO 0603 Omeprazole 40 MG DAILY AC PRN 12/31 2100 AC PO Polyethylene Glycol 17 GM DAILY PRN 01/04 0730 AC 01/04 PO 0932 Senna 187 MG AT BEDTIME PRN 01/04 0730 AC 01/05 PO 0835 Sevelamer Carbonate 800 MG WM 12/31 2100 AC 01/06 PO 1616 Sodium Chloride 1,000 ML Q13H 01/05 0845 DC 01/05 IV 01/05 2144 0843 Results Last 48 Hrs of Labs/Mics: Laboratory Tests 01/06/18 0606: Anion Gap 8, Estimated GFR 5 L, BUN/Creatinine Ratio 6.0 L, Magnesium 2.2, CBC w Diff NO MAN DIFF REQ, RBC 3.18 L, MCV 92.8, MCH 29.5, MCHC 31.9 L, RDW 14.3, MPV 10.0, Gran % 65.2, Lymphocytes % 20.4 L, Monocytes % 7.8, Eosinophils % 5.8 H, Basophils % 0.8, Absolute Granulocytes 3.6, Absolute Lymphocytes 1.1 L, Absolute Monocytes 0.4, Absolute Eosinophils 0.3, Absolute Basophils 0 01/05/18 0605: Anion Gap 11, Estimated GFR 4 L, BUN/Creatinine Ratio 5.4 L, Magnesium 2.3 Recent Imaging Studies: Left lower extremity ultrasound 01/06/2018: No evidence of deep venous thrombosis involving the lower extremity. Assessment/Plan Assessment/Plan 67-[id number]-o-w-f w/ hx of obesity, HTN, HLD, CKD, 2/2 microscopic polyangiitis Rx'd w/ pulse steroids & plasmapheresis w/o recovery of renal function for which she is on chronic PD (2012), & stroke (2014) who presented to the ED on 12/31/2017 a.m. w/ c/o severe KENDRICK, dizziness, "floaters", abd discomfort, nausea, an episode of vomiting after taking her meds, & transient tremors which resolved while she was in the ED whose blood pressure has improved, but who has had some "episodes ". One episode sounded vasovagal, others sounded like orthostatic hypotension, and anothers that sounded c/w possible TIAs. Fortunately, no evidence of DVT by LLE US. The goal at present is to manage her orthostatic hypotension. Her peritoneal dialysis regimen has been changed, her diuretics held, and her antihypertensive regimen modified. According to nursing, she is not orthostatic today. For now will continue with her present antihypertensive regimen and modify things as necessary. Continue telemetry? Yes
[2018-01-06 21:40] VITALS: BP 114/56
[2018-01-07 06:23] VITALS: BP 116/64
--- NOTE | 2018-01-07 06:39 | PN- Housestaff ---
Rl SHARP,Ami 01/07/18 0638: Subjective Follow-up For: Hypertensive encephalopathy Complaints: no complaints Tele-Events Since Last Visit: Normal sinus rhythm with a heart rate of 80 Subjective: Patient seen and examined at bedside no overnight events. Denies dizziness, fall, chest pain, palpitation, nausea, vomiting. Review of Systems Constitutional: Reports: no symptoms. Objective Last 24 Hrs of Vital Signs/I&O Vital Signs Date Time Temp Pulse Resp B/P B/P Pulse O2 O2 Flow FiO2 Mean Ox Delivery Rate 01/07 1514 98.3 69 20 118/52 99 Room Air 01/07 0740 62 116/60 01/07 0623 98.1 61 18 116/64 98 Room Air 01/06 2140 97.9 69 18 114/56 95 Room Air 01/06 2138 68 114/56 Intake & Output 01/07 1600 01/07 0800 01/07 0000 Intake Total 400 Output Total 350 -100 400 Balance 50 100 -400 Intake, Oral 400 Output, 100 -100 200 Dialysate Output, Urine 250 200 Patient 190 lb 206 lb Weight Weight Chair scale Measurement Method Physical Exam General Appearance: Alert, Oriented X3, Cooperative, No Acute Distress Cardiovascular: Regular Rate, Normal S1, Normal S2 Lungs: Clear to Auscultation Abdomen: Soft, No Tenderness, No Hepatospenomegaly Neurological: Normal Speech, Strength at 5/5 X4 Ext, Normal Tone, Sensation Intact, Cranial Nerves 3-12 NL Extremities: No Cyanosis, No Edema, Normal Pulses Current Medications: Current Medications Sig/Rich Start time Last Medication Dose Route Stop Time Status Admin Aspirin 81 MG DAILY 01/01 0900 AC 01/07 PO 0738 Atorvastatin Calcium 10 MG 1700 01/01 1700 AC 01/07 PO 1538 Calcium Acetate 667 MG WM 01/01 1200 AC 01/07 PO 1538 Epoetin Clifford 20,000 UNIT ONCE A WEEK 01/06 1000 AC 01/06 SC 1048 Erythromycin 1 LEXY ONCE PRN 01/03 0600 AC 01/05 OPH 2149 Heparin Sodium 5,000 UNIT Q8 12/31 2200 AC 01/07 (Porcine) SC 1308 Labetalol HCl 200 MG BID 01/04 1200 AC 01/07 PO 0740 Levothyroxine Sodium 0.05 MG DAILY AC 01/02 0845 AC 01/07 PO 0601 Omeprazole 40 MG DAILY AC PRN 12/31 2100 AC PO Polyethylene Glycol 17 GM DAILY PRN 01/04 0730 AC 01/04 PO 0932 Senna 187 MG AT BEDTIME PRN 01/04 0730 AC 01/05 PO 0835 Sevelamer Carbonate 800 MG WM 12/31 2100 AC 01/07 PO 1538 Last 24 Hrs of Lab/Carlos Results Last 24 Hrs of Labs/Mics: Laboratory Tests 01/07/18 06: Anion Gap 4 L, Estimated GFR 5 L, BUN/Creatinine Ratio 6.3 L, CBC w Diff NO MAN DIFF REQ, RBC 3.05 L, MCV 92.2, MCH 29.9, MCHC 32.5 L, RDW 14.0, MPV 9.8, Gran % 62.3, Lymphocytes % 22.7, Monocytes % 9.1, Eosinophils % 5.2 H, Basophils % 0.7, Absolute Granulocytes 3.5, Absolute Lymphocytes 1.3, Absolute Monocytes 0.5, Absolute Eosinophils 0.3, Absolute Basophils 0 Assessment/Plan Assessment: 67-year-old female with past medical history of hypertension, stroke, hyperlipidemia, migraine headache, GERD, heart failure with preserved ejection fraction, CKD on peritoneal dialysis [ Rapidly proliferative glomerulonephritis, pauciimmune], came with complaints of dizziness and vomiting. assessment and plan: 1. Hypertensive encephalopathy Patient admitted for hypertensive encephalopathy. Her blood pressure was managed with Lasix, labetalol 200 twice a day, lisinopril, hydralazine 25. We maintained to decrease her blood pressure not more than 20% in view of potential stroke. Patient had few episodes of borderline blood pressure 100/70. Her blood pressure medications was adjusted accordingly. rochelle currentlt only on LABETELOL 200 bid. During the hospital course patient had 2 episodes of numbness and tingling of the right hand with word finding difficulty. In view of the high suspicion for TIA stat CAT scan of the head was done which was negative. She was seen by neurologist who suggested to continue the current management and decided not to use aspirin/Plavix given that she had previous hemorrhagic stroke. Patient also had ultrasound of her neck and MRA head which was negative. 2. End-stage renal disease on peritoneal dialysis-patient initially came in with nausea and abdominal pain and hence there was a doubt about peritonitis but this was ruled out given her cell count was 10. Nephrology on board who suggested to continue the current home dose of peritoneal dialysis 4 times a day. 3. Stroke-patient had stroke in 2015. Follows Dr. Cline at [facility]. Patient will follow Dr. Guo as outpatient. 4. HFpEF-stable. Cardiology on board patient might need outpatient stress test. We will continue all her home medications. 5. Pt c/o left leg pain and swelling-DVT ruled out. 6. Patient was seen by physical therapy who suggested term rehab. Patient is not willing to go to short-term rehab. We will keep her one more day and she will work with physical therapy tomorrow. We will follow. Problem List: 1. 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 No focal neurological symptoms on exam initially, given Enalaprilat and Labetalol in ED with improvement in BP and rapid improvement in symptoms. She currently complaints only of weakness but dizziness has improved. Neuro exam normal. She offers no other complaints. Labs show elevated creatinine consistent with ESRD, normal electrolytes and CBC. CT head shows new small indeterminate age areas of hypoattenuation within the right and left parietal lobes at the high convexity that are nonspecific. MRI was done which showed micro- hemorrhages. BP improved, patient feels better. She still requires physical therapy, and it is thought that with another day of treatment, will be able to be discharged home rather than going to short term rehab. 1. Cerebral amyloid angiopathy 2. Labile essential hypertension 3. ESRD on PD secondary to mciroscopic polyangiitis Plan - Continue on telemetry - Continue Labetalol as sole anti-hypertensive - Follow nephrology and cardiology recommendations - Continue remaining home medications - PT eval - DVT PPx - Anticipated discharge tomorrow
[2018-01-07 07:39] LABS: ABSOLUTE BASOPHIL COUNT 0 /CUMM (0.0-0.2); ABSOLUTE EOSINOPHIL COUNT 0.3 /CUMM (0.0-0.7); ABSOLUTE GRANULOCYTE CT 3.5 /CUMM (1.4-6.5); ABSOLUTE LYMPH COUNT 1.3 /CUMM (1.2-3.4); ABSOLUTE MONOCYTE COUNT 0.5 /CUMM (0.10-0.60); BASOPHIL % 0.7 % (0.0-2.0); EOSINOPHIL % 5.2 % (0-5); GRANULOCYTE % 62.3 % (42.2-75.2); HEMATOCRIT 28.1 % (37-47); MEAN CORPUSCULAR HGB 29.9 PG (27.0-31.0); MEAN CORPUSCULAR HGB CONC 32.5 G/DL (33.0-37.0); MEAN CORPUSCULAR VOLUME 92.2 FL (81.0-99.0); MEAN PLATELET VOLUME 9.8 FL (7.4-10.4); PLATELET COUNT 186 /CUMM (130-400); RED BLOOD CELL CT 3.05 /CUMM (4.20-5.40); WHITE BLOOD CELL COUNT 5.6 /CUMM (4.8-10.8)
--- NOTE | 2018-01-07 08:47 | PN- Nephrology ---
Assessment/Plan Nephrology Assessment: 1. ESRD: due to chronic GN - no change chronic PD 2. HTN: controlled 3. Anemia: YSABEL restarted 4. L thigh pain: uncertain cause --> no DVT Suggestion: OK for discharge from renal perspective Outpt f/u PD clinic this week Subjective Subjective: Up in chair No SOB No syncopal sx PD w/o problem Stll has L thigh pain Objective Vital Signs and I&Os Vital Signs Date Time Temp Pulse Resp B/P B/P Pulse O2 O2 Flow FiO2 Mean Ox Delivery Rate 01/07 0740 62 116/60 01/07 0623 98.1 61 18 116/64 98 Room Air 01/06 2140 97.9 69 18 114/56 95 Room Air 01/06 2138 68 114/56 01/06 1500 97.9 69 18 118/58 97 Intake & Output 01/07 1600 01/07 0400 01/06 1600 01/06 0400 01/05 1600 01/05 0400 Intake Total 695 234 2607 240 Output Total -100 400 337 331 6919 300 Balance 100 -400 100 -500 -330 -60 Intake, IV 550 Intake, Oral 600 200 520 240 Number 2 Bowel Movements Output, -100 200 253 436 5030 100 Dialysate Output, Urine 200 300 100 200 Patient 206 lb 206 lb 204 lb Weight Weight Bed scale Bed scale Measurement Method Physical Exam General Appearance: well developed/nourished, no apparent distress, alert Head: atraumatic, normal appearance Ears, Nose, Throat: normal ENT inspection Neck: normal inspection Respiratory: normal breath sounds, quiet respiration, lungs clear Cardiovascular: regular rate/rhythm, edema (none) Abdomen: soft, non-tender Extremities: no edema Neurologic/Psychiatric: awake, alert, oriented x 3 Skin: intact, normal color Current Medications: Current Medications Sig/Rich Start time Last Medication Dose Route Stop Time Status Admin Aspirin 81 MG DAILY 01/01 0900 AC 01/07 PO 0738 Atorvastatin Calcium 10 MG 1700 01/01 1700 AC 01/06 PO 1616 Calcium Acetate 667 MG WM 01/01 1200 AC 01/07 PO 0738 Epoetin Clifford 20,000 UNIT ONCE A WEEK 01/06 1000 AC 01/06 SC 1048 Erythromycin 1 LEXY ONCE PRN 01/03 0600 AC 01/05 OPH 2149 Heparin Sodium 5,000 UNIT Q8 12/31 2200 AC 06/26 (Porcine) SC 0601 Labetalol HCl 200 MG BID 01/04 1200 AC 01/07 PO 0740 Levothyroxine Sodium 0.05 MG DAILY AC 01/02 0845 AC 01/07 PO 0601 Omeprazole 40 MG DAILY AC PRN 12/31 2100 AC PO Polyethylene Glycol 17 GM DAILY PRN 01/04 0730 AC 01/04 PO 0932 Senna 187 MG AT BEDTIME PRN 01/04 0730 AC 01/05 PO 0835 Sevelamer Carbonate 800 MG WM 12/31 2100 AC 01/07 PO 0738 Results Pertinent Lab Results: Laboratory Tests 01/07 01/06 0606 0606 Chemistry Sodium (137 - 145 mmol/L) 132 L 134 L Potassium (3.5 - 5.1 mmol/L) 4.3 4.3 Chloride (98 - 107 mmol/L) 96 L 97 L Carbon Dioxide (22 - 30 mmol/L) 32 H 28 Anion Gap (5 - 16) 4 L 8 BUN (7 - 17 mg/dL) 52 H 50 H Creatinine (0.5 - 1.0 mg/dL) 8.2 *H 8.3 *H Estimated GFR (>60 ml/min) 5 L 5 L BUN/Creatinine Ratio (7 - 25 %) 6.3 L 6.0 L Magnesium (1.6 - 2.3 mg/dL) 2.2 Hematology CBC w Diff NO MAN DIFF REQ NO MAN DIFF REQ WBC (4.8 - 10.8 /CUMM) 5.6 5.5 RBC (4.20 - 5.40 /CUMM) 3.05 L 3.18 L Hgb (12.0 - 16.0 G/DL) 9.1 L 9.4 L Hct (37 - 47 %) 28.1 L 29.5 L MCV (81.0 - 99.0 FL) 92.2 92.8 MCH (27.0 - 31.0 PG) 29.9 29.5 MCHC (33.0 - 37.0 G/DL) 32.5 L 31.9 L RDW (11.5 - 14.5 %) 14.0 14.3 Plt Count (130 - 400 /CUMM) 186 183 MPV (7.4 - 10.4 FL) 9.8 10.0 Gran % (42.2 - 75.2 %) 62.3 65.2 Lymphocytes % (20.5 - 51.1 %) 22.7 20.4 L Monocytes % (1.7 - 9.3 %) 9.1 7.8 Eosinophils % (0 - 5 %) 5.2 H 5.8 H Basophils % (0.0 - 2.0 %) 0.7 0.8 Absolute Granulocytes (1.4 - 6.5 /CUMM) 3.5 3.6 Absolute Lymphocytes (1.2 - 3.4 /CUMM) 1.3 1.1 L Absolute Monocytes (0.10 - 0.60 /CUMM) 0.5 0.4 Absolute Eosinophils (0.0 - 0.7 /CUMM) 0.3 0.3 Absolute Basophils (0.0 - 0.2 /CUMM) 0 0 06/24 0605 Chemistry Sodium (137 - 145 mmol/L) 135 L Potassium (3.5 - 5.1 mmol/L) 4.4 Chloride (98 - 107 mmol/L) 96 L Carbon Dioxide (22 - 30 mmol/L) 28 Anion Gap (5 - 16) 11 BUN (7 - 17 mg/dL) 49 H Creatinine (0.5 - 1.0 mg/dL) 9.0 *H Estimated GFR (>60 ml/min) 4 L BUN/Creatinine Ratio (7 - 25 %) 5.4 L Magnesium (1.6 - 2.3 mg/dL) 2.3 Imaging/Other Studies: Doppler: No evidence of deep venous thrombosis involving the lower extremity.
[2018-01-07 15:14] VITALS: BP 118/52
--- NOTE | 2018-01-07 16:00 | PN- Cardiology ---
Subjective Subjective: No complaints. Left lower extremity pain. Objective Vital Signs and I&Os Vital Signs Date Time Temp Pulse Resp B/P B/P Pulse O2 O2 Flow FiO2 Mean Ox Delivery Rate 01/07 1514 98.3 69 20 118/52 99 Room Air 01/07 0740 62 116/60 01/07 0623 98.1 61 18 116/64 98 Room Air 01/06 2140 97.9 69 18 114/56 95 Room Air 01/06 2138 68 114/56 Intake & Output 01/07 1600 01/07 0801/07 0000 01/06 1600 01/06 0800 01/06 0000 Intake Total 400 400 200 200 Output Total 350 -100 400 400 100 700 Balance 50 100 -400 0 100 -500 Intake, Oral 400 400 200 200 Number 2 Bowel Movements Output, 100 -100 200 100 100 700 Dialysate Output, Urine 250 200 300 Patient 190 lb 206 lb 206 lb Weight Weight Chair scale Bed scale Measurement Method Physical Exam: Well developed, obese elderly female in no acute distress. HEENT: Normocephalic, atraumatic, EOMI, moist mucous membranes. Neck: No JVD, no bruits. Lungs: Clear to auscultation bilaterally. Heart: S1, S2 grade 1-2/6 systolic murmur. No gallop or rub. PMI not well felt. Abdomen: Soft, nontender, positive bowel sounds. Extremities: No edema. Current Medications: Current Medications Sig/Rich Start time Last Medication Dose Route Stop Time Status Admin Aspirin 81 MG DAILY 01/01 0900 AC 01/07 PO 0738 Atorvastatin Calcium 10 MG 1700 01/01 1700 AC 01/07 PO 1538 Calcium Acetate 667 MG WM 01/01 1200 AC 01/07 PO 1538 Epoetin Clifford 20,000 UNIT ONCE A WEEK 01/06 1000 AC 01/06 SC 1048 Erythromycin 1 LEXY ONCE PRN 01/03 0600 AC 01/05 OPH 2149 Heparin Sodium 5,000 UNIT Q8 12/31 2200 AC 01/07 (Porcine) SC 1308 Labetalol HCl 200 MG BID 01/04 1200 AC 01/07 PO 0740 Levothyroxine Sodium 0.05 MG DAILY AC 01/02 0845 AC 01/07 PO 0601 Omeprazole 40 MG DAILY AC PRN 12/31 2100 AC PO Polyethylene Glycol 17 GM DAILY PRN 01/04 0730 AC 01/04 PO 0932 Senna 187 MG AT BEDTIME PRN 01/04 0730 AC 01/05 PO 0835 Sevelamer Carbonate 800 MG WM 12/31 2100 AC 01/07 PO 1538 Results Last 48 Hrs of Labs/Mics: Laboratory Tests 01/07/18 06: Anion Gap 4 L, Estimated GFR 5 L, BUN/Creatinine Ratio 6.3 L, CBC w Diff NO MAN DIFF REQ, RBC 3.05 L, MCV 92.2, MCH 29.9, MCHC 32.5 L, RDW 14.0, MPV 9.8, Gran % 62.3, Lymphocytes % 22.7, Monocytes % 9.1, Eosinophils % 5.2 H, Basophils % 0.7, Absolute Granulocytes 3.5, Absolute Lymphocytes 1.3, Absolute Monocytes 0.5, Absolute Eosinophils 0.3, Absolute Basophils 0 01/06/18 06: Anion Gap 8, Estimated GFR 5 L, BUN/Creatinine Ratio 6.0 L, Magnesium 2.2, CBC w Diff NO MAN DIFF REQ, RBC 3.18 L, MCV 92.8, MCH 29.5, MCHC 31.9 L, RDW 14.3, MPV 10.0, Gran % 65.2, Lymphocytes % 20.4 L, Monocytes % 7.8, Eosinophils % 5.8 H, Basophils % 0.8, Absolute Granulocytes 3.6, Absolute Lymphocytes 1.1 L, Absolute Monocytes 0.4, Absolute Eosinophils 0.3, Absolute Basophils 0 Assessment/Plan Assessment/Plan [id number]-o-w-f w/ hx of obesity, HTN, HLD, CKD, 2/2 microscopic polyangiitis Rx'd w/ pulse steroids & plasmapheresis w/o recovery of renal function for which she is on chronic PD (2012), & stroke (2014) who presented to the ED on 12/31/2017 a.m. w/ c/o severe KENDRICK, dizziness, "floaters", abd discomfort, nausea, an episode of vomiting after taking her meds, & transient tremors which resolved while she was in the ED whose blood pressure has improved, but who has had some "episodes ". One episode sounded vasovagal, others sounded like orthostatic hypotension, and anothers that sounded c/w possible TIAs. Fortunately, no evidence of DVT by LLE US. The goal at present is to manage her orthostatic hypotension. Her peritoneal dialysis regimen has been changed, her diuretics held, and her antihypertensive regimen modified. According to nursing, she is not orthostatic today. For now will continue with her present antihypertensive regimen and modify things as necessary. Continue telemetry? Yes
[2018-01-07 21:44] VITALS: BP 110/64
[2018-01-08 06:31] VITALS: BP 100/52
--- NOTE | 2018-01-08 07:05 | PN- Housestaff ---
Rl SHARP,Ami 01/08/18 0705: Subjective Follow-up For: Hypertensive encephalopathy Complaints: pt unable to provide hx, no complaints Tele-Events Since Last Visit: Normal sinus rhythm heart rate 80s Subjective: Patient seen and examined at bedside no overnight events. Patient denies dizziness, fall, chest pain, nausea and vomiting Review of Systems Constitutional: Reports: no symptoms. Objective Last 24 Hrs of Vital Signs/I&O Vital Signs Date Time Temp Pulse Resp B/P B/P Pulse O2 O2 Flow FiO2 Mean Ox Delivery Rate 01/08 0950 Room Air 01/08 0745 59 114/62 01/08 0631 98.3 64 20 100/52 96 Room Air 01/07 2214 65 110/64 01/07 2144 97.8 67 20 110/64 95 Room Air 01/07 1514 98.3 69 20 118/52 99 Room Air Intake & Output 01/08 1600 01/08 0800 01/08 0000 Intake Total Output Total 400 -100 800 Balance -400 100 -800 Output, 100 -100 400 Dialysate Output, Urine 300 400 Patient 210 lb Weight Weight Bed scale Measurement Method Physical Exam General Appearance: Alert, Oriented X3, Cooperative, No Acute Distress Cardiovascular: Regular Rate, Normal S1, Normal S2, No Murmurs Lungs: Clear to Auscultation Abdomen: Soft, No Tenderness, No Hepatospenomegaly Neurological: Strength at 5/5 X4 Ext, Normal Tone, Sensation Intact Extremities: No Cyanosis, No Edema, Normal Pulses Current Medications: Current Medications Sig/Rich Start time Last Medication Dose Route Stop Time Status Admin Aspirin 81 MG DAILY 01/01 09 AC 01/08 PO 0744 Atorvastatin Calcium 10 MG 1700 01/01 1700 AC 01/07 PO 1538 Calcium Acetate 667 MG WM 01/01 1200 AC 01/08 PO 1136 Epoetin Clifford 20,000 UNIT ONCE A WEEK 01/06 1000 AC 01/06 SC 1048 Erythromycin 1 LEXY ONCE PRN 01/03 06 AC 01/05 OPH 2149 Heparin Sodium 5,000 UNIT Q8 12/31 2200 AC 01/08 (Porcine) SC 0539 Labetalol HCl 200 MG BID 01/04 1200 AC 01/08 PO 0745 Levothyroxine Sodium 0.05 MG DAILY AC 01/02 0845 AC 01/08 PO 0539 Omeprazole 40 MG DAILY AC PRN 12/31 2100 AC PO Polyethylene Glycol 17 GM DAILY PRN 01/04 0730 AC 01/04 PO 0932 Senna 187 MG AT BEDTIME PRN 01/04 0730 AC 01/05 PO 0835 Sevelamer Carbonate 800 MG WM 12/31 2100 AC 01/08 PO 1136 Last 24 Hrs of Lab/Carlos Results Last 24 Hrs of Labs/Mics: Laboratory Tests 01/08/18 0604: Anion Gap 8, Estimated GFR 5 L, BUN/Creatinine Ratio 6.4 L, Serum Osmolality 298 H Assessment/Plan Assessment: 67-year-old female with past medical history of hypertension, stroke, hyperlipidemia, migraine headache, GERD, heart failure with preserved ejection fraction, CKD on peritoneal dialysis [ Rapidly proliferative glomerulonephritis, pauciimmune], came with complaints of dizziness and vomiting. assessment and plan: 1. Hypertensive encephalopathy Patient admitted for hypertensive encephalopathy. Her blood pressure was managed with Lasix, labetalol 200 twice a day, lisinopril, hydralazine 25. We maintained to decrease her blood pressure not more than 20% in view of potential stroke. Patient had few episodes of borderline blood pressure 100/70. Her blood pressure medications was adjusted accordingly. now currently only on LABETELOL 200 bid. During the hospital course patient had 2 episodes of numbness and tingling of the right hand with word finding difficulty. In view of the high suspicion for TIA stat CAT scan of the head was done which was negative. She was seen by neurologist who suggested to continue the current management and decided not to use aspirin/Plavix given that she had previous hemorrhagic stroke. Patient also had ultrasound of her neck and MRA head which was negative. 2. End-stage renal disease on peritoneal dialysis-patient initially came in with nausea and abdominal pain and hence there was a doubt about peritonitis but this was ruled out given her cell count was 10. Nephrology on board who suggested to continue the current home dose of peritoneal dialysis 4 times a day. 3. Stroke-patient had stroke in 2015. Follows Dr. Cline at [facility]. Patient will follow Dr. Guo as outpatient. 4. HFpEF-stable. Cardiology on board patient might need outpatient stress test. We will continue all her home medications. 5. Pt c/o left leg pain and swelling-DVT ruled out. 6. Patient was seen by physical therapy who suggested term rehab. Problem List: 1. 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 No focal neurological symptoms on exam initially, given Enalaprilat and Labetalol in ED with improvement in BP and rapid improvement in symptoms. She currently complaints only of weakness but dizziness has improved. Neuro exam normal. She offers no other complaints. Labs show elevated creatinine consistent with ESRD, normal electrolytes and CBC. CT head shows new small indeterminate age areas of hypoattenuation within the right and left parietal lobes at the high convexity that are nonspecific. MRI was done which showed micro- hemorrhages. BP improved, patient feels better. She still requires physical therapy, and it is thought that with another day of treatment, will be able to be discharged home rather than going to short term rehab. 1. Cerebral amyloid angiopathy 2. Labile essential hypertension 3. 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
--- NOTE | 2018-01-08 09:32 | PN- Nephrology ---
Assessment/Plan Nephrology Assessment: 1. ESRD: due to chronic GN - continue all 1.5% dextrose PD 2. HTN: controlled 3. Anemia: on YSABEL Suggestion: OK for STR from renal perspective but limited availabilty PD capable facility -- > discussed w d/c [employer] Subjective Subjective: Walking in [place] but needs assistance No SOB No PD issues Considering STR Objective Vital Signs and I&Os Vital Signs Date Time Temp Pulse Resp B/P B/P Pulse O2 O2 Flow FiO2 Mean Ox Delivery Rate 01/08 0745 59 114/62 01/08 0631 98.3 64 20 100/52 96 Room Air 01/07 2214 65 110/64 01/07 2144 97.8 67 20 110/64 95 Room Air 01/07 1514 98.3 69 20 118/52 99 Room Air Intake & Output 01/08 1600 01/08 0400 01/07 1600 01/07 0400 01/06 1600 01/06 0400 Intake Total 400 600 200 Output Total -100 800 250 400 500 700 Balance 100 -800 150 -400 100 -500 Intake, Oral 400 600 200 Number 2 Bowel Movements Output, -100 400 0 200 200 700 Dialysate Output, Urine 400 250 200 300 Patient 210 lb 190 lb 206 lb 206 lb Weight Weight Bed scale Chair scale Bed scale Measurement Method Physical Exam General Appearance: well developed/nourished, no apparent distress, alert Head: atraumatic Ears, Nose, Throat: normal ENT inspection Neck: normal inspection Respiratory: normal breath sounds, no respiratory distress, quiet respiration, lungs clear Cardiovascular: regular rate/rhythm Abdomen: soft, non-tender, no organomegaly Extremities: no edema Neurologic/Psychiatric: awake, alert, oriented x 3 Current Medications: Current Medications Sig/Rich Start time Last Medication Dose Route Stop Time Status Admin Aspirin 81 MG DAILY 01/01 09 AC 01/08 PO 0744 Atorvastatin Calcium 10 MG 1700 01/01 1700 AC 01/07 PO 1538 Calcium Acetate 667 MG WM 01/01 1200 AC 01/08 PO 0744 Epoetin Clifford 20,000 UNIT ONCE A WEEK 01/06 1000 AC 01/06 SC 1048 Erythromycin 1 LEXY ONCE PRN 01/03 0600 AC 01/05 OPH 2149 Heparin Sodium 5,000 UNIT Q8 12/31 2200 AC 01/08 (Porcine) SC 0539 Labetalol HCl 200 MG BID 01/04 1200 AC 01/08 PO 0745 Levothyroxine Sodium 0.05 MG DAILY AC 01/02 0845 AC 01/08 PO 0539 Omeprazole 40 MG DAILY AC PRN 12/31 2100 AC PO Polyethylene Glycol 17 GM DAILY PRN 01/04 0730 AC 01/04 PO 0932 Senna 187 MG AT BEDTIME PRN 01/04 0730 AC 01/05 PO 0835 Sevelamer Carbonate 800 MG WM 12/31 2100 AC 01/08 PO 0744 Results Pertinent Lab Results: Laboratory Tests 01/08 01/07 0604 0606 Chemistry Sodium (137 - 145 mmol/L) 132 L 132 L Potassium (3.5 - 5.1 mmol/L) 4.1 4.3 Chloride (98 - 107 mmol/L) 94 L 96 L Carbon Dioxide (22 - 30 mmol/L) 29 32 H Anion Gap (5 - 16) 8 4 L BUN (7 - 17 mg/dL) 53 H 52 H Creatinine (0.5 - 1.0 mg/dL) 8.3 *H 8.2 *H Estimated GFR (>60 ml/min) 5 L 5 L BUN/Creatinine Ratio (7 - 25 %) 6.4 L 6.3 L Hematology CBC w Diff NO MAN DIFF REQ WBC (4.8 - 10.8 /CUMM) 5.6 RBC (4.20 - 5.40 /CUMM) 3.05 L Hgb (12.0 - 16.0 G/DL) 9.1 L Hct (37 - 47 %) 28.1 L MCV (81.0 - 99.0 FL) 92.2 MCH (27.0 - 31.0 PG) 29.9 MCHC (33.0 - 37.0 G/DL) 32.5 L RDW (11.5 - 14.5 %) 14.0 Plt Count (130 - 400 /CUMM) 186 MPV (7.4 - 10.4 FL) 9.8 Gran % (42.2 - 75.2 %) 62.3 Lymphocytes % (20.5 - 51.1 %) 22.7 Monocytes % (1.7 - 9.3 %) 9.1 Eosinophils % (0 - 5 %) 5.2 H Basophils % (0.0 - 2.0 %) 0.7 Absolute Granulocytes (1.4 - 6.5 /CUMM) 3.5 Absolute Lymphocytes (1.2 - 3.4 /CUMM) 1.3 Absolute Monocytes (0.10 - 0.60 /CUMM) 0.5 Absolute Eosinophils (0.0 - 0.7 /CUMM) 0.3 Absolute Basophils (0.0 - 0.2 /CUMM) 0 01/06 0606 Chemistry Sodium (137 - 145 mmol/L) 134 L Potassium (3.5 - 5.1 mmol/L) 4.3 Chloride (98 - 107 mmol/L) 97 L Carbon Dioxide (22 - 30 mmol/L) 28 Anion Gap (5 - 16) 8 BUN (7 - 17 mg/dL) 50 H Creatinine (0.5 - 1.0 mg/dL) 8.3 *H Estimated GFR (>60 ml/min) 5 L BUN/Creatinine Ratio (7 - 25 %) 6.0 L Magnesium (1.6 - 2.3 mg/dL) 2.2 Hematology CBC w Diff NO MAN DIFF REQ WBC (4.8 - 10.8 /CUMM) 5.5 RBC (4.20 - 5.40 /CUMM) 3.18 L Hgb (12.0 - 16.0 G/DL) 9.4 L Hct (37 - 47 %) 29.5 L MCV (81.0 - 99.0 FL) 92.8 MCH (27.0 - 31.0 PG) 29.5 MCHC (33.0 - 37.0 G/DL) 31.9 L RDW (11.5 - 14.5 %) 14.3 Plt Count (130 - 400 /CUMM) 183 MPV (7.4 - 10.4 FL) 10.0 Gran % (42.2 - 75.2 %) 65.2 Lymphocytes % (20.5 - 51.1 %) 20.4 L Monocytes % (1.7 - 9.3 %) 7.8 Eosinophils % (0 - 5 %) 5.8 H Basophils % (0.0 - 2.0 %) 0.8 Absolute Granulocytes (1.4 - 6.5 /CUMM) 3.6 Absolute Lymphocytes (1.2 - 3.4 /CUMM) 1.1 L Absolute Monocytes (0.10 - 0.60 /CUMM) 0.4 Absolute Eosinophils (0.0 - 0.7 /CUMM) 0.3 Absolute Basophils (0.0 - 0.2 /CUMM) 0 Imaging/Other Studies: Doppler: No evidence of deep venous thrombosis involving the lower extremity.
--- NOTE | 2018-01-08 13:18 | Discharge Summary ---
Hospital Course Allergies: Coded Allergies: Penicillins (Intermediate, HIVES 01/04/16) Discharge Instructions Medications at Discharge Discharge Medications: Stop taking the following medications: Lisinopril (Lisinopril) 20 MG TABLET ORAL Every night Qty = 90 Furosemide (Furosemide) 80 MG TABLET ORAL DAILY Hydralazine HCl (Hydralazine HCl) 25 MG TABLET ORAL TWICE DAILY Qty = 60 Cinacalcet HCl (Sensipar) 30 MG TABLET ORAL DAILY Continue taking these medications: Omeprazole (Omeprazole) 40 MG CAPSULE.DR 1 Capsule ORAL DAILY Qty = 30 Comments: PER PT MED LIST Sevelamer Carbonate (Renvela) 800 MG TABLET 1 Tablet ORAL THREE TIMES DAILY Simvastatin (Simvastatin*) 20 MG TABLET 1 Tablet ORAL Every night Calcium Acetate (Calcium Acetate) 667 MG TABLET 1 Tablet ORAL 4 TIMES A DAY Qty = 30 Labetalol HCl (Labetalol HCl) 200 MG TABLET 1 Tablet ORAL TWICE DAILY Start taking the following new medications: Levothyroxine Sodium (Synthroid) 50 MCG TABLET 0.05 Milligram ORAL DAILY BEFORE BREAKFAST Qty = 30 No Refills
--- NOTE | 2018-01-08 13:20 | PN- Housestaff ---
Subjective Follow-up For: hypertensive emergency Subjective: Pt is seen and exmained at bedside Review of Systems Constitutional: Reports: see HPI. Objective Last 24 Hrs of Vital Signs/I&O Vital Signs Date Time Temp Pulse Resp B/P B/P Pulse O2 O2 Flow FiO2 Mean Ox Delivery Rate 01/08 0950 Room Air 01/08 0745 59 114/62 01/08 0631 98.3 64 20 100/52 96 Room Air 01/07 2214 65 110/64 01/07 2144 97.8 67 20 110/64 95 Room Air 01/07 1514 98.3 69 20 118/52 99 Room Air Intake & Output 01/08 1600 01/08 0800 01/08 0000 Intake Total Output Total 400 -100 800 Balance -400 100 -800 Output, 100 -100 400 Dialysate Output, Urine 300 400 Patient 210 lb Weight Weight Bed scale Measurement Method Physical Exam General Appearance: Alert, Oriented X3, Cooperative Other Physical Findings: Cardiovascular: Regular Rate, Normal S1, Normal S2, No Murmurs Lungs: Clear to Auscultation Abdomen: Soft, No Tenderness, No Hepatospenomegaly Neurological: Strength at 5/5 X4 Ext, Normal Tone, Sensation Intact Extremities: No Cyanosis, No Edema, Normal Pulses Current Medications: Current Medications Sig/Rich Start time Last Medication Dose Route Stop Time Status Admin Aspirin 81 MG DAILY 01/01 09 AC 01/08 PO 0744 Atorvastatin Calcium 10 MG 1700 01/01 1700 AC 01/07 PO 1538 Calcium Acetate 667 MG WM 01/01 1200 AC 01/08 PO 1136 Epoetin Clifford 20,000 UNIT ONCE A WEEK 01/06 1000 AC 01/06 DE 1048 Erythromycin 1 LEXY ONCE PRN 01/03 0600 AC 01/05 OPH 2149 Heparin Sodium 5,000 UNIT Q8 12/31 2200 AC 01/08 (Porcine) SC 0539 Labetalol HCl 200 MG BID 01/04 1200 AC 01/08 PO 0745 Levothyroxine Sodium 0.05 MG DAILY AC 01/02 0845 AC 01/08 PO 0539 Omeprazole 40 MG DAILY AC PRN 12/31 2100 AC PO Polyethylene Glycol 17 GM DAILY PRN 01/04 0730 AC 01/04 PO 0932 Senna 187 MG AT BEDTIME PRN 01/04 0730 AC 01/05 PO 0835 Sevelamer Carbonate 800 MG WM 12/31 2100 AC 01/08 PO 1136 Last 24 Hrs of Lab/Carlos Results Last 24 Hrs of Labs/Mics: Laboratory Tests 01/08/18 1158: Ur Random Creatinine 58.4, Ur Random Sodium 40, Ur Random Potassium 9.4, Fraction Sodium Excret 4.3 H 01/08/18 0604: Anion Gap 8, Estimated GFR 5 L, BUN/Creatinine Ratio 6.4 L, Serum Osmolality 298 H Assessment/Plan Assessment: 67 yo presented with hyptersnsive emergency a/p Problem List: 1. Hypertensive encephalopathy 2. ACUTE RENAL FAILURE 3. Orthostatic hypotension Pain Ratin Pain Location: lower back Pain Goal: Pain 4 or less Pain Plan: Per venegas pathway Tomorrow's Labs & Rationales: CBC - anemia BEP - dialysis, hyperK
[2018-01-08] MEDS ORDERED: PROCARDIA XL30 M1 PO (13:59)
[2018-01-08] MEDS ORDERED: TIMOLOL MALEATE5 M4 OPH (14:00)
[2018-01-08 14:47] VITALS: BP 120/60
--- NOTE | 2018-01-08 19:13 | PN- Cardiology ---
Subjective Subjective: No new complaints. Sinus rhythm on telemetry. Objective Vital Signs and I&Os Vital Signs Date Time Temp Pulse Resp B/P B/P Pulse O2 O2 Flow FiO2 Mean Ox Delivery Rate 01/08 1447 97.3 61 20 120/60 98 Room Air 01/08 0950 Room Air 01/08 0745 59 114/62 01/08 0631 98.3 64 20 100/52 96 Room Air 01/07 2214 65 110/64 01/07 2144 97.8 67 20 110/64 95 Room Air Intake & Output 01/08 1600 01/08 0800 01/08 0000 01/07 1600 01/07 0800 01/07 0000 Intake Total 400 400 Output Total 700 -100 800 350 -100 400 Balance -300 100 -800 50 100 -400 Intake, Oral 400 400 Output, 100 -100 400 100 -100 200 Dialysate Output, Urine 600 400 250 200 Patient 210 lb 190 lb 206 lb Weight Weight Bed scale Chair scale Measurement Method Physical Exam: Well developed, obese elderly female in no acute distress. HEENT: Normocephalic, atraumatic, EOMI, moist mucous membranes. Neck: No JVD, no bruits. Lungs: Clear to auscultation bilaterally. Heart: S1, S2 grade 1-2/6 systolic murmur. No gallop or rub. PMI not well felt. Abdomen: Soft, nontender, positive bowel sounds. Extremities: No edema. Current Medications: Current Medications Sig/Rich Start time Last Medication Dose Route Stop Time Status Admin Aspirin 81 MG DAILY 01/01 0900 AC 01/08 PO 0744 Atorvastatin Calcium 10 MG 1700 01/01 1700 AC 01/08 PO 1651 Calcium Acetate 667 MG WM 01/01 1200 AC 01/08 PO 1650 Epoetin Clifford 20,000 UNIT ONCE A WEEK 01/06 1000 AC 01/06 SC 1048 Erythromycin 1 LEXY ONCE PRN 01/03 0600 AC 01/05 OPH 2149 Heparin Sodium 5,000 UNIT Q8 12/31 2200 AC 01/08 (Porcine) SC 1448 Labetalol HCl 200 MG BID 01/04 1200 AC 01/08 PO 0745 Levothyroxine Sodium 0.05 MG DAILY AC 01/02 0845 AC 01/08 PO 0539 Omeprazole 40 MG DAILY AC PRN 12/31 2100 AC PO Polyethylene Glycol 17 GM DAILY PRN 01/04 0730 AC 01/04 PO 0932 Senna 187 MG AT BEDTIME PRN 01/04 0730 AC 01/05 PO 0835 Sevelamer Carbonate 800 MG WM 12/31 2100 AC 01/08 PO 1651 Results Last 48 Hrs of Labs/Mics: Laboratory Tests 01/08/18 1158: Urine Osmolality 198 L, Ur Random Creatinine 58.4, Ur Random Sodium 40, Ur Random Potassium 9.4, Fraction Sodium Excret 4.3 H 01/08/18 0604: Anion Gap 8, Estimated GFR 5 L, BUN/Creatinine Ratio 6.4 L, Serum Osmolality 298 H 01/07/18 0606: Anion Gap 4 L, Estimated GFR 5 L, BUN/Creatinine Ratio 6.3 L, CBC w Diff NO MAN DIFF REQ, RBC 3.05 L, MCV 92.2, MCH 29.9, MCHC 32.5 L, RDW 14.0, MPV 9.8, Gran % 62.3, Lymphocytes % 22.7, Monocytes % 9.1, Eosinophils % 5.2 H, Basophils % 0.7, Absolute Granulocytes 3.5, Absolute Lymphocytes 1.3, Absolute Monocytes 0.5, Absolute Eosinophils 0.3, Absolute Basophils 0 Assessment/Plan Assessment/Plan [id number] w/ hx of obesity, HTN, HLD, CKD, 2/2 microscopic polyangiitis Rx'd w/ pulse steroids & plasmapheresis w/o recovery of renal function for which she is on chronic PD (2012), & stroke (2014) who presented to the ED on 12/31/2017 a.m. w/ c/o severe KENDRICK, dizziness, "floaters", abd discomfort, nausea, an episode of vomiting after taking her meds, & transient tremors which resolved while she was in the ED whose blood pressure has improved, but who has had some "episodes ". One episode sounded vasovagal, others sounded like orthostatic hypotension, and anothers that sounded c/w possible TIAs. The goal at present is to manage her orthostatic hypotension. Her peritoneal dialysis regimen has been changed, her diuretics held, and her antihypertensive regimen modified. According to nursing, she is not orthostatic today. Continue with present regimen. Expect discharge tomorrow. Continue telemetry? No
[2018-01-08 22:19] VITALS: BP 80/60
[2018-01-08 22:28] VITALS: BP 88/40
[2018-01-08 22:39] VITALS: BP 110/60
[2018-01-09 06:07] VITALS: BP 118/58
--- NOTE | 2018-01-09 07:30 | PN- Housestaff ---
Rl SHARP,Ami 01/09/18 0729: Subjective Follow-up For: Malignant hypertension Subjective: Patient seen and examined at bedside. She is anxious and frustrated and would like to go home today. She denied any further episodes of dizziness, nausea, vomiting, abdominal pain Review of Systems Constitutional: Reports: no symptoms. Objective Last 24 Hrs of Vital Signs/I&O Vital Signs Date Time Temp Pulse Resp B/P B/P Pulse O2 O2 Flow FiO2 Mean Ox Delivery Rate 01/09 1153 98.2 64 16 118/58 01/09 0751 64 118/58 Intake & Output 01/10 0800 01/10 0000 01/09 1600 Intake Total Output Total 200 Balance -200 Output, 200 Dialysate Physical Exam General Appearance: Alert, Oriented X3, Cooperative, No Acute Distress Cardiovascular: Regular Rate, Normal S1, Normal S2 Lungs: Clear to Auscultation Abdomen: Soft, No Tenderness, No Hepatospenomegaly Neurological: Normal Speech, Strength at 5/5 X4 Ext, Normal Tone, Sensation Intact, Cranial Nerves 3-12 NL Current Medications: Current Medications Sig/Rich Start time Last Medication Dose Route Stop Time Status Admin Aspirin 81 MG DAILY 01/01 0900 DCD 01/09 PO 0752 Atorvastatin Calcium 10 MG 1700 01/01 1700 DCD 01/08 PO 1651 Calcium Acetate 667 MG WM 01/01 1200 DCD 01/09 PO 1215 Epoetin Clifford 20,000 UNIT ONCE A WEEK 01/06 1000 DCD 01/06 SC 1048 Erythromycin 1 LEXY ONCE PRN 01/03 0600 DCD 01/05 OPH 2149 Heparin Sodium 5,000 UNIT Q8 12/31 2200 DCD 01/09 (Porcine) SC 0608 Labetalol HCl 200 MG BID 01/04 1200 DC 01/09 PO 0751 Levothyroxine Sodium 0.05 MG DAILY AC 01/02 0845 DCD 01/09 PO 0608 Omeprazole 40 MG DAILY AC PRN 12/31 2100 DCD PO Polyethylene Glycol 17 GM DAILY PRN 01/04 0730 DCD 01/04 PO 0932 Senna 187 MG AT BEDTIME PRN 01/04 0730 DCD 01/05 PO 0835 Sevelamer Carbonate 800 MG WM 12/31 2100 DCD 01/09 PO 1215 Last 24 Hrs of Lab/Carlos Results Last 24 Hrs of Labs/Mics: Laboratory Tests 01/09/18 0841: Anion Gap 10, Estimated GFR 5 L, BUN/Creatinine Ratio 6.7 L Assessment/Plan Assessment: 67-year-old female with past medical history of hypertension, stroke, hyperlipidemia, migraine headache, GERD, heart failure with preserved ejection fraction, CKD on peritoneal dialysis [ Rapidly proliferative glomerulonephritis, pauciimmune], came with complaints of dizziness and vomiting. assessment and plan: 1. Hypertensive encephalopathy Patient admitted for hypertensive encephalopathy. Her blood pressure was managed with Lasix, labetalol 200 twice a day, lisinopril, hydralazine 25. We maintained to decrease her blood pressure not more than 20% in view of potential stroke. Patient had few episodes of borderline blood pressure 100/70. Her blood pressure medications was adjusted accordingly. now currently only on LABETELOL 200 bid. During the hospital course patient had 2 episodes of numbness and tingling of the right hand with word finding difficulty. In view of the high suspicion for TIA stat CAT scan of the head was done which was negative. She was seen by neurologist who suggested to continue the current management and decided not to use aspirin/Plavix given that she had previous hemorrhagic stroke. Patient also had ultrasound of her neck and MRA head which was negative. Patient had another episode of dizziness with hypotension of 88/60. During that time orthostatics were positive. After discussing this with the director of accounting we decided to stop all her blood pressure medication. Patient is to follow-up with her primary care physician regarding restarting her blood pressure medication. 2. End-stage renal disease on peritoneal dialysis-patient initially came in with nausea and abdominal pain and hence there was a doubt about peritonitis but this was ruled out given her cell count was 10. Nephrology on board who suggested to continue the current home dose of peritoneal dialysis 4 times a day. 3. Stroke-patient had stroke in 2015. Follows Dr. Cline at [facility]. Patient will follow Dr. Guo as outpatient. 4. HFpEF-stable. Cardiology on board patient might need outpatient stress test. We will continue all her home medications. 5. Pt c/o left leg pain and swelling-DVT ruled out. 6. Patient was seen by physical therapy who suggested term rehab. Problem List: 1. 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 No focal neurological symptoms on exam initially, given Enalaprilat and Labetalol in ED with improvement in BP and rapid improvement in symptoms. She currently complaints only of weakness but dizziness has improved. Neuro exam normal. She offers no other complaints. Labs show elevated creatinine consistent with ESRD, normal electrolytes and CBC. CT head shows new small indeterminate age areas of hypoattenuation within the right and left parietal lobes at the high convexity that are nonspecific. MRI was done which showed micro- hemorrhages. 1. Cerebral amyloid angiopathy 2. Labile essential hypertension 3. 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
--- NOTE | 2018-01-09 09:34 | PN- Nephrology ---
Assessment/Plan Nephrology Assessment: 1. 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 HTN: too low --> d/c labetalol 3. Anemia: on YSABEL Suggestion: 1. d/c labetalol 2. all 1.5% dextrose PD OK for STR frrom renal perspective today Subjective Subjective: Episode hypotension after labetalol last night Better this AM - no dizziness No problem w PD --> all 1.5% dextrose solution Objective Vital Signs and I&Os Vital Signs Date Time Temp Pulse Resp B/P B/P Pulse O2 O2 Flow FiO2 Mean Ox Delivery Rate 01/09 0751 64 118/58 01/09 0607 98.2 64 16 118/58 96 Room Air 01/08 2239 110/60 01/08 2228 58 88/40 01/08 2219 97.8 60 16 80/60 96 Room Air 01/08 1447 97.3 61 20 120/60 98 Room Air 01/08 0950 Room Air Intake & Output 01/09 1600 01/09 0400 01/08 0400 01/07 0400 Intake Total 120 480 400 400 Output Total 200 0 600 800 250 400 Balance -80 480 -200 -800 150 -400 Intake, Oral 120 480 400 400 Output, 200 0 0 400 0 200 Dialysate Output, Urine 600 400 250 200 Patient 210 lb 190 lb 206 lb Weight Weight Bed scale Chair scale Measurement Method Physical Exam General Appearance: well developed/nourished, no apparent distress, alert Head: atraumatic, normal appearance Ears, Nose, Throat: normal ENT inspection Neck: normal inspection Respiratory: normal breath sounds, no respiratory distress, quiet respiration, lungs clear Cardiovascular: regular rate/rhythm Abdomen: soft, non-tender Extremities: no edema, tender ? bruise R upper medial thigh w/o change Neurologic/Psychiatric: awake, alert Results Pertinent Lab Results: Laboratory Tests 01/09 01/08 01/08 01/07 0841 [id number] [id number] Chemistry Sodium (137 - 145 mmol/L) 132 L 132 L 132 L Potassium (3.5 - 5.1 mmol/L) 3.8 4.1 4.3 Chloride (98 - 107 mmol/L) 95 L 94 L 96 L Carbon Dioxide (22 - 30 mmol/L) 27 29 32 H Anion Gap (5 - 16) 10 8 4 L BUN (7 - 17 mg/dL) 52 H 53 H 52 H Creatinine (0.5 - 1.0 mg/dL) 7.8 *H 8.3 *H 8.2 *H Estimated GFR (>60 ml/min) 5 L 5 L 5 L BUN/Creatinine Ratio (7 - 25 %) 6.7 L 6.4 L 6.3 L Serum Osmolality (285 - 295 MOSM/KG) 298 H Hematology CBC w Diff NO MAN DIFF REQ WBC (4.8 - 10.8 /CUMM) 5.6 RBC (4.20 - 5.40 /CUMM) 3.05 L Hgb (12.0 - 16.0 G/DL) 9.1 L Hct (37 - 47 %) 28.1 L MCV (81.0 - 99.0 FL) 92.2 MCH (27.0 - 31.0 PG) 29.9 MCHC (33.0 - 37.0 G/DL) 32.5 L RDW (11.5 - 14.5 %) 14.0 Plt Count (130 - 400 /CUMM) 186 MPV (7.4 - 10.4 FL) 9.8 Gran % (42.2 - 75.2 %) 62.3 Lymphocytes % (20.5 - 51.1 %) 22.7 Monocytes % (1.7 - 9.3 %) 9.1 Eosinophils % (0 - 5 %) 5.2 H Basophils % (0.0 - 2.0 %) 0.7 Absolute Granulocytes (1.4 - 6.5 /CUMM) 3.5 Absolute Lymphocytes (1.2 - 3.4 /CUMM) 1.3 Absolute Monocytes (0.10 - 0.60 /CUMM) 0.5 Absolute Eosinophils (0.0 - 0.7 /CUMM) 0.3 Absolute Basophils (0.0 - 0.2 /CUMM) 0 Urines Urine Osmolality (300 - 1000 MOSM/KG) 198 L Ur Random Creatinine (mg/dL) 58.4 Ur Random Sodium (30 - 90 mmol/L) 40 Ur Random Potassium (mmol/L) 9.4 Fraction Sodium Excret (<1% %) 4.3 H Imaging/Other Studies: Doppler: No evidence of deep venous thrombosis involving the lower extremity.
[2018-01-09 11:53] VITALS: BP 118/58
== END 2018-01-09 13:00 | DRG 77 ==
LOC: DELPENDDIS → ERH 09:53 → 1NO 15:41 → ERHI 15:41 → ENRESERV 16:52 → ENTRNSPT 17:49 → 1NO 18:12 → EDTRNSPTSTS 18:22 → CMPTRNSPT 18:22 → 1NO 01-01 07:13 → ENTRNSPT 01-03 11:06 → EDTRNSPTSTS 01-03 11:36 → EDTRNSPT 01-03 11:36 → CMPTRNSPT 01-03 11:43 → ENPENDDIS 01-03 13:19 → DELTRNSPT 01-06 18:51 → ENTRNSPT 01-06 18:53 → EDTRNSPT 01-06 18:59 → EDTRNSPTSTS 01-06 18:59 → CMPTRNSPT 01-06 19:10 → 1NO 01-07 08:30 → ENPENDDIS 01-09 10:24 → ENTRNSPT 01-09 12:38 → 1NO 01-09 13:00 → EDTRNSPTSTS 01-09 13:00 → CMPTRNSPT 01-09 13:29
PROVIDERS: Emergency Medicine; Student in an Organized Health Care Education/Training Program
DX: I67.4 Hypertensive encephalopathy (principal); N18.6 End stage renal disease; I13.2 Hypertensive heart and chronic kidney disease with heart failure and with stage 5 chronic kidney disease, or end stage renal disease; I50.32 Chronic diastolic (congestive) heart failure; G45.9 Transient cerebral ischemic attack, unspecified; E85.4 Organ-limited amyloidosis; Z99.2 Dependence on renal dialysis; I68.0 Cerebral amyloid angiopathy; I95.1 Orthostatic hypotension; E78.5 Hyperlipidemia, unspecified; Z88.0 Allergy status to penicillin; K21.9 Gastro-esophageal reflux disease without esophagitis; F32.9 Major depressive disorder, single episode, unspecified; F41.9 Anxiety disorder, unspecified; E66.9 Obesity, unspecified
CPT/HCPCS: 1NP; 70551; 70555; 84133; 84300; 87075; 36415; 36592; 74176; 81001; 82436; 82570; 86376; 86800; 87086; 93005; 93010; 93306; 94799; 96374; 96375; 96376; 97110-GO; 97116-GO; 97161-GP; 97530-GO; 99291; J0360; J0885; J1644; J2405; J3490